=== PATIENT | male | born 2005 | race Two or more races ===

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

== ENCOUNTER 2024-04-20 16:45 | Emergency (ER) | payer SELFPAY ==
--- NOTE | ~2024-04-20 | XR_ITS ---
EXAMINATION: XR CHEST, 2 VIEWS CLINICAL INFORMATION: Chest pain. COMPARISON: 10/15/2022 TECHNIQUE: PA and lateral views of the chest were obtained. FINDINGS: Lungs are clear. No consolidation, pneumothorax, or pleural effusion. Cardiac and mediastinal contours are normal. Pulmonary vasculature is unremarkable. Trachea is midline. Osseous structures are unremarkable. XR/XR chest 2V IMPRESSION: Normal chest radiographs. Electronically signed by: Himanshu Huber MD 04/20/2024 11:14 PM EDT
--- NOTE | 2024-04-20 16:55 | ECG_ITS ---
Test Reason : chest pain Blood Pressure : / mmHG Vent. Rate : 071 BPM Atrial Rate : 071 BPM P-R Int : 138 ms QRS Dur : 090 ms QT Int : 362 ms P-R-T Axes : 072 079 054 degrees QTc Int : 393 ms Normal sinus rhythm Normal ECG When compared with ECG of 03-JUL-2010 15:08, PREVIOUS ECG IS PRESENT No significant change was found Referred By: Rachel Higgins Electronically Signed By:FREDO ELIZABETH
[2024-04-20 17:18] VITALS: BP 95/67; PULSE 70; RESP 16; TEMP 36.9; O2SAT 98; BMI 18.9
--- NOTE | 2024-04-20 17:19 | ED_ITS ---
HPI - Chest Pain General Chief Complaint: Chest Pain Stated Complaint: chest pain Time Seen by Provider: 04/20/24 22:38 History of Present Illness ED Provider: Angela CESAR narrative: The patient is an ordinarily healthy 18-year-old male who recently started work at [employer]. 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 Three days ago he started having some chest pain when he was lifting but it was not that bad. Since yesterday it has gotten considerably worse and he comes to the emergency room for evaluation of this pain. No pain or swelling in his legs. The pain is worse when he lifts things. Related Data Previous Rx's ?Medication ?Instructions ?Recorded levofloxacin 500 mg tablet 500 mg PO DAILY #9 tabs 11/10/21 naproxen 500 mg tablet (Naprosyn) 500 mg PO BID #10 tabs 11/10/21 Allergies Allergy/AdvReac Type Severity Reaction Status Date / Time No Known Allergies Allergy Verified 04/20/24 17:19 Review of Systems 2 Review of Systems: Yes all other systems are reviewed and are negative [facility] Past Medical History Medical History ADHD Social History Social History Alcohol intake: never Smoked in Last 30 Days: No Use of substances other than those prescribed or required for medical reasons: No Advance Directives: No Advance Directives Information Provided: No Do you have a plan to hurt others: No Plan Physical Exam 2 Vital Signs: Vital Signs: Last Vital Signs Temp 98.8 F 04/20/24 23:28 Pulse 54 04/20/24 23:28 Resp 16 04/20/24 23:28 BP 113/71 04/20/24 23:28 Pulse Ox 98 04/20/24 23:28 O2 Del Method Room Air 04/20/24 23:28 BMI result Body Mass Index 18.9 Const: Other: The patient is a slim 18-year-old male who does not appear uncomfortable or ill. Orientation/consciousness: patient oriented x3 HEENT: Head: Yes normal to inspection Face and sinus: Yes normal facial exam Mouth: Normal oral and palatal mucosa present and moist mucous membranes Eyes: General: appearance normal, both eyes and all related structures Neck: Neck: Yes full ROM Chest: Other: Mild anterior chest wall tenderness bilaterally. Resp: Effort & Inspection: normal respiratory effort Auscultation: clear to auscultation bilaterally Cardio: Rate: regular rate Rhythm: regular rhythm Heart sounds: S1 normal heart sound present and S2 normal heart sound present GI: Other: Abdomen is soft and nontender Skin: Other: skin is dry and unremarkable Neuro: General: patient oriented x3 Cranial nerves: Yes CN's II-XII intact bilaterally Cognition (Neuro): normal cognition Gait exam (Neuro): Normal gait present Motor exam (neuro): 5/5 motor strength present throughout Extrem: General: Yes full ROM, Yes no pedal edema and Yes no calf tenderness Course Course Course Narrative: This is a Rapid Medical Examination (RME) performed by Riane Higgins PA-C in triage. Full HPI, ROS, assessment and treatment plan per primary provider in the Main ED. 18 yo male presents to the ER for evaluation of left sided chest pain that has been worsening since Wednesday. Works at [employer] and does a lot of lifting which makes it worse. Also worse with deep breathing. Plan: EKG, CXR, labs Medical Decision Making Medical Decision Making MDM Narrative: the patient is an ordinarily healthy 18-year-old who is complaining of chest pain that he experiences primarily when lifting heavy objects at work. He does not appear obviously ill. His EKG is unremarkable. Chest x-ray is clear. No pneumothorax. Labs were ordered at triage and these are unremarkable. I suspect that his pain is chest wall pain. He was given a work note. He should follow-up with his access representative. Lab Data 04/20/24 18:09 04/20/24 18:09 Labs: Lab Results 04/20/24 04/20/24 Range/Units 18:09 23:17 WBC 7.1 (4.8-10.8) X10*3/uL RBC 4.50 L (4.60-5.80) X10*6/uL Hgb 14.4 (14.0-18.0) g/dl Hct 41.5 L (42.0-52.0) % MCV 92.2 (80.0-98.0) fL MCH 32.0 (27.0-33.0) pg MCHC 34.7 (31.0-36.0) g/dl RDW 11.9 (11.0-16.0) % Plt Count 201 (160-400) X10*3/uL MPV 10.5 (9.4-12.4) fL Immature Gran % (Auto) 0.3 (0.0-0.4) % Neut % (Auto) 75.0 H (45-73) % Lymph % (Auto) 15.7 L (20-40) % [place] % (Auto) 7.6 (2-11) % Eos % (Auto) 0.8 (0-4) % Baso % (Auto) 0.6 (0-2) % Lymph # (Auto) 1.1 L (1.2-4.9) X10*3/uL [place] # (Auto) 0.5 (0.1-1.2) X10*3/uL Eos # (Auto) 0.1 (0.0-0.4) X10*3/uL Baso # (Auto) 0.0 (0.0-0.2) X10*3/uL Abs Immat Gran (auto) 0.02 (0.00-0.03) X10*3/uL Absolute Neuts (auto) 5.3 (2.0-8.3) x10*3/uL Absolute Nucleated RBC 0.000 (0.0-0.012) X10*3/uL Nucleated RBC % (auto) 0.0 (0.0-0.2) /100WBC Sodium 142 (135-145) mmol/L Potassium 4.1 (3.3-5.1) mmol/L Chloride 108 (96-108) mmol/L Carbon Dioxide 26 (22-29) mmol/L Anion Gap 12 (12-20) BUN 10 (9-16) mg/dL Creatinine 0.70 (0.5-1.4) mg/dL Estim Creat Clear Calc 119.7 Estimated GFR > 60 Random Glucose 85 (60-115) mg/dL Calcium 9.5 (8.4-10.2) mg/dL Magnesium 2.2 (1.6-2.6) mg/dL Total Bilirubin 0.5 (0.0-1.0) mg/dL Direct Bilirubin 0.2 (0.0-0.5) mg/dL AST 18 (5-37) U/L ALT 27 (0-40) U/L Alkaline Phosphatase 74 (39-117) U/L Troponin I High Sens < 2.7 (<3.5-35.0) ng/L Total Protein 7.1 (6.5-8.0) g/dL Albumin 4.4 (3.5-5.0) g/dL Influenza Type A (PCR) NEGATIVE (Negative) Influenza Type B (PCR) NEGATIVE (Negative) RSV RNA Qual (PCR) NEGATIVE (Negative) SARS-CoV-2 RNA (RT-PCR) NEGATIVE (Negative) Independent Interpretation I performed an independent interpretation of an: EKG Interpretation: EKG at 1647 shows normal sinus rhythm at 71 beats per minute. This is a normal EKG. Discharge Plan Discharge Clinical Impression: Chest wall pain Patient Disposition: Home, Self-Care Instructions: Chest Wall Pain (ED) Additional Instructions: Your testing today is quite reassuring. Your EKG is normal. Your blood testing is unremarkable. I think your chest x-ray is normal although I do not have the official reading yet. I will contact you if there is any change in the official reading. Please rest for the next several days. My hope is you will be feeling better by next Wednesday. I think you can probably still follow up with [facility] since you are only 18. Continue your efforts to get [facility]. Return to the emergency room if you feel worse. Prescriptions: No Action naproxen [Naprosyn] 500 mg tablet 500 mg PO BID Qty: 10 0RF levofloxacin 500 mg tablet 500 mg PO DAILY Qty: 9 0RF Referrals: Abad Varela MD [Primary Care Provider] - (chest wall pain) Stand Alone Forms: Work/School Release Interventions: ED Discharge Assessment Last Done: 04/20/24 23:28 Discharge Date/Time: 04/20/24 23:29 Print Language: Citizen Of [place]
[2024-04-20 18:29] LABS: MANUAL DIFF FLAG NO
[2024-04-20 18:42] LABS: Basophils Percent Auto 0.6 % (0-2); Eosinophils Absolute Auto 0.1 X10*3/uL (0.0-0.4); Eosinophils Percent Auto 0.8 % (0-4); Hematocrit 41.5 % (42.0-52.0); Hemoglobin 14.4 g/dl (14.0-18.0); Imm Gran Abs Auto 0.02 X10*3/uL (0.00-0.03); Imm Gran Pct Auto 0.3 % (0.0-0.4); Lymphocytes Absolute Auto 1.1 X10*3/uL (1.2-4.9); Lymphocytes Percent Auto 15.7 % (20-40); Mean Corpuscular HGB Conc 34.7 g/dl (31.0-36.0); Mean Corpuscular Volume 92.2 fL (80.0-98.0); Mean Platelet Volume 10.5 fL (9.4-12.4); Monocytes Absolute Auto 0.5 X10*3/uL (0.1-1.2); Monocytes Percent Auto 7.6 % (2-11); Neutrophils Absolute Auto 5.3 x10*3/uL (2.0-8.3); Platelet Count 201 X10*3/uL (160-400); Red Cell Distribution Width 11.9 % (11.0-16.0); White Blood Count 7.1 X10*3/uL (4.8-10.8)
[2024-04-20 18:46] LABS: Alanine Aminotransferase 27 U/L (0-40); Albumin Level 4.4 g/dL (3.5-5.0); Alkaline Phosphatase 74 U/L (39-117); Anion Gap 12 (12-20); Aspartate Amino Transferase 18 U/L (5-37); Bilirubin Direct 0.2 mg/dL (0.0-0.5); Bilirubin Total 0.5 mg/dL (0.0-1.0); Blood Urea Nitrogen 10 mg/dL (9-16); Calcium 9.5 mg/dL (8.4-10.2); Carbon Dioxide 26 mmol/L (22-29); Chloride 108 mmol/L (96-108); Creatinine Clr Calc Pharmacy 119.7; Estimated Glomerular Filt Rate > 60; Glucose Random 85 mg/dL (60-115); Magnesium 2.2 mg/dL (1.6-2.6); Potassium 4.1 mmol/L (3.3-5.1); Sodium 142 mmol/L (135-145); Total Protein 7.1 g/dL (6.5-8.0)
[2024-04-20 18:54] LABS: Troponin-I High Sensitivity < 2.7 ng/L (<3.5-35.0)
[2024-04-20 22:07] VITALS: BP 113/71; PULSE 54; RESP 16; TEMP 37.1; O2SAT 98
[2024-04-20 23:28] VITALS: BP 113/71; PULSE 54; RESP 16; TEMP 37.1; O2SAT 98
[2024-04-20 23:58] LABS: Influenza A PCR NEGATIVE (Negative); Influenza B PCR NEGATIVE (Negative); Resp Syncy Virus RNA Qual PCR NEGATIVE (Negative); SARS COV2 PCR INHOUSE NEGATIVE (Negative)
== END 2024-04-20 23:29 | disposition home or self-care (01) ==
PROVIDERS: Physician Assistant; Emergency Provider Emergency Medicine; PCP Pediatrics
DX: R07.89 Other chest pain (principal); Z03.818 Encounter for observation for suspected exposure to other biological agents ruled out
CPT/HCPCS: 0241U; 36415; 71046; 80048; 80076; 83735; 84484; 85025; 93005; 99283; 99284

== ENCOUNTER 2024-05-11 08:54 | Emergency (ER) | payer SELFPAY ==
[2024-05-11 09:00] VITALS: BP 128/77; PULSE 62; RESP 18; TEMP 36.3; O2SAT 98; BMI 18.7
--- NOTE | 2024-05-11 09:52 | ED.BACK ---
HPI - Back Pain/Injury General Chief Complaint: Back Pain/Injury Stated Complaint: Back pain Time Seen by Provider: 05/11/24 09:19 Source: patient and RN notes reviewed Mode of arrival: ambulatory Limitations: no limitations History of Present Illness ED Provider: Stefanie Magana PA-C HPI Narrative: This is a 18-year-old male, with no known medical problems, who presents emergency department with complaints of back pain x4 days. Patient states that he works at [employer] which requires him to lift heavy objects frequently. He denies specifically lifting up a heavy box and immediately feeling pain however states that over the last several days he has noticed increased pain to his back. He states that the pain worsens with movement. He has been taking Tylenol as well as using lidocaine patches which has provided him with some relief. He denies any fevers, chills, chest pain, shortness of breath, abdominal pain, nausea, vomiting or diarrhea. No urinary or bowel retention or incontinence. No saddle anesthesia. No numbness and tingling. He is ambulatory with steady gait. No history of IVDA. No other complaints or concerns at this time MD elicited complaint: back pain Onset (ago): day(s) Timing: constant Severity: moderate Similar Symptoms Previously: No Quality: aching Location: thoracic spine Radiation: none Exacerbating factors: none Relieving factors: none Associated symptoms: denies other symptoms Work related injury: Yes Related Data Previous Rx's ?Medication ?Instructions ?Recorded levofloxacin 500 mg tablet 500 mg PO DAILY #9 tabs 11/10/21 naproxen 500 mg tablet (Naprosyn) 500 mg PO BID #10 tabs 11/10/21 ibuprofen 600 mg tablet 600 mg PO Q6H PRN pain #30 tabs 05/11/24 lidocaine 4 % topical patch 1 patch topical DAILY PRN pain #30 05/11/24 (AsperFlex (lidocaine)) ea methocarbamol 750 mg tablet 750 mg PO Q8H PRN muscle spasm 3 05/11/24 days #9 tabs Allergies Allergy/AdvReac Type Severity Reaction Status Date / Time No Known Allergies Allergy Verified 05/11/24 09:03 Review of Systems Review of Systems: Yes all other systems are reviewed and are negative Constitutional: Constitutional: Reports as per [facility] Past Medical History Attestation statement: The following information was validated with the patient. Medical History ADHD Social History Social History Alcohol intake: never Advance Directives: No Advance Directives Information Provided: Yes Physical Exam Vital Signs: Vital Signs: Last Vital Signs Temp 97.3 F 05/11/24 09:00 Pulse 62 05/11/24 09:00 Resp 18 05/11/24 09:00 BP 128/77 05/11/24 09:00 Pulse Ox 98 05/11/24 09:00 O2 Del Method Room Air 05/11/24 09:00 BMI result Body Mass Index 18.7 Const: General: cooperative, comfortable and no acute distress Orientation/consciousness: patient oriented x3 Limitations: no limitations HEENT: Head: Yes normal to inspection, Yes normocephalic and Yes atraumatic Ears: hearing grossly normal bilaterally General nose exam: Normal external nose present Face and sinus: Yes normal facial exam Mouth: Normal oral and palatal mucosa present, oropharynx normal and moist mucous membranes Throat: Yes posterior oropharynx normal Eyes: General: appearance normal, both eyes and all related structures Eyelids: Yes eyelids normal Conjunctivae: conjunctivae normal Sclerae: sclerae normal Pupils: Equal, round and reactive pupils present EOM: EOMs intact bilaterally Neck: Neck: Yes normal visual inspection, Yes full ROM and Yes no lymphadenopathy Lymphatic: no lymphadenopathy noted Chest: Chest palpation & inspection: normal inspection of the chest Resp: Effort & Inspection: normal respiratory effort and able to speak in complete sentences Auscultation: clear to auscultation bilaterally, no crackles, no rales, no rhonchi and no wheezes Cardio: Rate: regular rate Rhythm: regular rhythm Heart sounds: S1 normal heart sound present and S2 normal heart sound present GI: Inspection: Yes normal to inspection Back/Spine/Pelvis: Other: No C-spine, T-spine, or L-spine midline spine tenderness on examination. He has tenderness to palpation along the left thoracic musculature with palpable muscle spasm noted with exquisite tenderness on examination. No overlying skin changes, warmth. No abscess. Skin: General skin exam: no rashes or lesions noted Trauma: no lacerations or abrasions Wounds: no wounds Neuro: General: patient oriented x3 and moves all extremities Cranial nerves: Yes Equal, round and reactive pupils present Extrem: General: Yes normal to inspection Right upper extremity: normal to inspection Left upper extremity: normal to inspection Right lower extremity: normal to inspection Left lower extremity: normal to inspection Medical Decision Making Medical Decision Making MDM Narrative: This is a 18-year-old male who presents emergency department with complaints of back pain x4 days. He often has to lift heavy objects at work. He states that over the last several days he has had worsening pain to his left upper back. On examination, vital signs within normal limits. He is ambulatory with steady gait. Distal sensation circulation intact. He has tenderness palpation along the thoracic left musculature with palpable spasm noted. He has no history of IVDA. No red flag back symptoms. Urinary symptoms to suggest pyelonephritis or obstructive uropathy. No concerning signs for cauda equina syndrome Discussed that x-rays would not benefit him, and will treat conservatively with muscle relaxants, ibuprofen and lidocaine patches. 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 He understands and agrees with plan. Patient stable for discharge. Differential Diagnosis Differential Diagnoses: The differential diagnosis associated with the presentation includes Spasm, strain, sprain, contusion, see above Discharge Plan Discharge Clinical Impression: Spasm of thoracic back muscle Patient Disposition: Home, Self-Care Instructions: Muscle Spasm (ED), Back Pain (ED), Heat Pack Application (ED) Additional Instructions: You were seen in the emergency department due to back pain. You have a large muscle spasm in your left upper back. Please rest, apply heat or ice, take ibuprofen, and muscle relaxants as needed. Gentle stretching, and massage can also help with your symptoms. If any new or worsening symptoms occur including but not limited to worsening pain, chest pain, shortness of breath, please return for re-evaluation Follow-up with a primary care physician, I am giving your referral to [facility] Prescriptions: New ibuprofen 600 mg tablet 600 mg PO Q6H PRN (Reason: pain) Qty: 30 0RF methocarbamol 750 mg tablet 750 mg PO Q8H PRN (Reason: muscle spasm) 3 Days Qty: 9 0RF lidocaine [AsperFlex (lidocaine)] 4 % adhesive patch,medicated 1 patch topical DAILY PRN (Reason: pain) Qty: 30 0RF No Action naproxen [Naprosyn] 500 mg tablet 500 mg PO BID Qty: 10 0RF levofloxacin 500 mg tablet 500 mg PO DAILY Qty: 9 0RF Referrals: [facility] [Physician] - Stand Alone Forms: Work/School Release Print Language: Salvadorean
[2024-05-11 10:10] VITALS: BP 128/77; PULSE 62; RESP 18; TEMP 36.3; O2SAT 98
== END 2024-05-11 10:11 | disposition home or self-care (01) ==
PROVIDERS: Emergency Provider Student in an Organized Health Care Education/Training Program
DX: M62.830 Muscle spasm of back (principal)
CPT/HCPCS: 99283

== ENCOUNTER 2024-07-29 10:27 | Emergency (ER) | payer OTHER, SELFPAY ==
[2024-07-29 10:34] VITALS: BP 107/55; PULSE 54; RESP 20; TEMP 37; O2SAT 100; BMI 18.4
[2024-07-29 11:44] LABS: Influenza A PCR NEGATIVE (Negative); Influenza B PCR NEGATIVE (Negative); Resp Syncy Virus RNA Qual PCR NEGATIVE (Negative); SARS COV2 PCR INHOUSE NEGATIVE (Negative)
--- NOTE | 2024-07-29 12:17 | ED_ITS ---
HPI - Headache General Chief Complaint: Headache Stated Complaint: migraine Time Seen by Provider: 07/29/24 11:41 Source: patient Mode of arrival: ambulatory Limitations: no limitations History of Present Illness ED Provider: MARIELOS MCDUFFIE PA-C HPI Narrative: 19-year-old male with pmhx significant for ADHD presents to the ED today for evaluation of headache x 24 hours. He said his headache gradually came on while he was at work yesterday. He reports working in an [employer] where it there is a lot of noise/come motion. 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 He reports taking Tylenol last night with improvement in headache however it returned this morning. He did not take any [id number] medications today, rather decided to come to the ED for further evaluation. He denies any vision changes, nausea, vomiting, photophobia, dizziness, neck pain. No history of migraines. No known trauma/injury to the head. Related Data Previous Rx's ?Medication ?Instructions ?Recorded levofloxacin 500 mg tablet 500 mg PO DAILY #9 tabs 11/10/21 naproxen 500 mg tablet (Naprosyn) 500 mg PO BID #10 tabs 11/10/21 ibuprofen 600 mg tablet 600 mg PO Q6H PRN pain #30 tabs 05/11/24 lidocaine 4 % topical patch 1 patch topical DAILY PRN pain #30 05/11/24 (AsperFlex (lidocaine)) ea methocarbamol 750 mg tablet 750 mg PO Q8H PRN muscle spasm 3 05/11/24 days #9 tabs Allergies Allergy/AdvReac Type Severity Reaction Status Date / Time No Known Allergies Allergy Verified 07/29/24 10:35 Review of Systems 2 Review of Systems: Constitutional: No fever, chills, fatigue, night sweats, weight changes ENT/Mouth: No ear pain, hearing loss, nasal congestion, sinus pain, rhinorrhea, sore throat Eyes: No eye pain, swelling, redness, vision changes, discharge Cardio: No chest pain, palpitations, MORALES, orthopnea, peripheral edema Pulm: No SOB, cough, sputum, wheezing, dyspnea, hemoptysis GI: No nausea, vomiting, hematemesis, abdominal pain, diarrhea, constipation, hematochezia, melena : No irregular bleeding, dysuria, frequency, urgency, hesitancy, hematuria, flank pain, urinary flow changes, urinary incontinence or retention MSK: No back pain, neck pain, joint pain, myalgias Skin: No lesions, rashes Neuro: No weakness, numbness, paresthesias, LOC, dizziness, +headache Psych: No anxiety/panic, depression, SI/HI, AH/VH All other systems reviewed and are negative. [facility] Past Medical History Attestation statement: The following information was validated with the patient. Source: old records reviewed and nursing notes reviewed Medical History ADHD Social History Social History Alcohol intake: never Advance Directives: No Advance Directives Information Provided: No Physical Exam 2 Vital Signs: Vital Signs: Last Vital Signs Temp 98.0 F 07/29/24 12:38 Pulse 52 07/29/24 12:38 Resp 15 07/29/24 12:38 BP 112/47 L 07/29/24 12:38 Pulse Ox 99 07/29/24 12:38 O2 Del Method Room Air 07/29/24 12:38 BMI result Body Mass Index 18.4 Vital signs stable Const: General: cooperative, healthy appearing, comfortable and no acute distress Orientation/consciousness: patient oriented x3 Limitations: no limitations HEENT: Head: Yes normal to inspection, Yes No palpable skull fracture present, Yes normocephalic, Yes atraumatic, No scalp tenderness and No Temporal artery tenderness present Ears: hearing grossly normal bilaterally, external ears normal, TM's normal bilaterally, EAC's normal, mastoids normal and no periauricular adenopathy Face and sinus: Yes normal facial exam and Yes sinuses nontender Mouth: Normal oral and palatal mucosa present and moist mucous membranes Eyes: General: appearance normal, both eyes and all related structures C onjunctivae: conjunctivae normal Sclerae: sclerae normal Pupils: Equal, round and reactive pupils present Direct Ophthalmoscopy: normal light reflex, no photophobia, no papilledema and fundi normal bilaterally Neck: Neck: Yes normal visual inspection, Yes full ROM, Yes no lymphadenopathy and Yes no meningeal signs Resp: Effort & Inspection: normal respiratory effort and able to speak in complete sentences Auscultation: clear to auscultation bilaterally Cardio: Rate: regular rate Rhythm: regular rhythm Back/Spine/Pelvis: Other: No midline spinous tenderness or step off deformity. No paraspinal muscle tenderness. Skin: General skin exam: no rashes or lesions noted Neuro: General: patient oriented x3, gait normal, tone normal, no meningeal signs and no focal motor deficits Cranial nerves: Yes Equal, round and reactive pupils present Gait exam (Neuro): Normal gait present Motor exam (neuro): 5/5 motor strength present throughout and Pronator motor function not present Coordination: [id number] test normal, [id number]-[id number] test normal, Romberg test negative and Normal rapid alternating movements of the distal upper extremity present (Neuro) Romberg Test: Negative Pupils: Normal pupillary reactivity/response: bilateral Course Course Course Narrative: Patient tested negative for COVID, flu, RSV. CBC does not demonstrate leukocytosis or left shift. No anemia. H&H stable. Chemistry without acute electrolyte abnormality requiring intervention. No ANG. Liver function at baseline. > patient treated with Motrin with improvement in headache. I do not feel CT head is warranted at this time. Patient has remained stable throughout ED visit today. Discussed worrisome signs and symptoms and when to return to the ED. All questions answered at this time. Patient is agreeable with disposition and stable for discharge. Medications Administered Discontinued Medications Generic Name Dose Route Start Last Admin Trade Name Michaelq PRN Reason Stop Dose Admin Ibuprofen 600 mg 07/29/24 12:21 07/29/24 12:45 Ibuprofen 600 Mg Tablet PO 07/29/24 12:22 600 mg ONCE ONE Administration Medical Decision Making Medical Decision Making [facility] Narrative: 19-year-old male with pmhx significant for ADHD presents to the ED today for evaluation of headache x 24 hours. Vital signs are stable. Afebrile. He is nontoxic-appearing and in no acute distress. No headache red flags. Exam is nonfocal. No meningeal signs or nuchal rigidity. ambulating with steady gait. Differential diagnosis includes general headache vs migraine vs tension type headache. No headache red flags. Neurologic exam without evidence of meningismus. No focal neurologic findings. Presentation not consistent with acute intracranial bleed including SAH (lack of risk factors, headache history). Presentation not consistent with acute [employer] infection including meningitis or brain abscess. Temporal arteritis unlikely, as is acute angle closure glaucoma given history and physical findings. Presentation not consistent with other acute, emergent causes of headache at this time. Plan to treat symptomatically with pain medication. No indication for imaging/LP at this time. Plan for pain control, labs, viral swabs, and re-evaluation. Differential Diagnosis Differential Diagnoses: The differential diagnosis associated with the presentation includes As above Admission/Observation Not indicated Lab Data MDM Lab Attestation statement: I reviewed the patient's lab results. As above 07/29/24 12:10 07/29/24 12:10 Labs: Lab Results 07/29/24 07/29/24 Range/Units 11:03 12:10 WBC 4.7 L (4.8-10.8) X10*3/uL RBC 4.66 (4.60-5.80) X10*6/uL Hgb 14.8 (14.0-18.0) g/dl Hct 41.9 L (42.0-52.0) % MCV 89.9 (80.0-98.0) fL MCH 31.8 (27.0-33.0) pg MCHC 35.3 (31.0-36.0) g/dl RDW 11.7 (11.0-16.0) % Plt Count 191 (160-400) X10*3/uL MPV 10.6 (9.4-12.4) fL Immature Gran % (Auto) 0.2 (0.0-0.4) % Neut % (Auto) 61.5 (45-73) % Lymph % (Auto) 27.4 (20-40) % Cooper % (Auto) 7.6 (2-11) % Eos % (Auto) 2.5 (0-4) % Baso % (Auto) 0.8 (0-2) % Lymph # (Auto) 1.3 (1.2-4.9) X10*3/uL Cooper # (Auto) 0.4 (0.1-1.2) X10*3/uL Eos # (Auto) 0.1 (0.0-0.4) X10*3/uL Baso # (Auto) 0.0 (0.0-0.2) X10*3/uL Abs Immat Gran (auto) 0.01 (0.00-0.03) X10*3/uL Absolute Neuts (auto) 2.9 (2.0-8.3) x10*3/uL Absolute Nucleated RBC 0.000 (0.0-0.012) X10*3/uL Nucleated RBC % (auto) 0.0 (0.0-0.2) /100WBC Sodium 141 (135-145) mmol/L Potassium 4.3 (3.3-5.1) mmol/L Chloride 108 (96-108) mmol/L Carbon Dioxide 25 (22-29) mmol/L Anion Gap 12 (12-20) BUN 9 (9-16) mg/dL Creatinine 0.78 (0.5-1.4) mg/dL Estim Creat Clear Calc 103.8 Estimated GFR > 60 Random Glucose 82 (60-115) mg/dL Calcium 8.9 D (8.4-10.2) mg/dL Magnesium 2.2 (1.6-2.6) mg/dL Total Bilirubin 1.1 H (0.0-1.0) mg/dL AST 21 (5-37) U/L ALT 18 (0-40) U/L Alkaline Phosphatase 57 (39-117) U/L Total Protein 7.3 (6.5-8.0) g/dL Albumin 4.5 (3.5-5.0) g/dL Influenza Type A (PCR) NEGATIVE (Negative) Influenza Type B (PCR) NEGATIVE (Negative) RSV RNA Qual (PCR) NEGATIVE (Negative) SARS-CoV-2 RNA (RT-PCR) NEGATIVE (Negative) External Record Review External record reviewed: Inpatient record, Office record, Outpatient record, Prior outpatient labs, Prior outpatient radiology, Primary care record and Outside ED record Tests considered The following testing was considered but not selected: I considered ordering CT head/brain however exam is nonfocal and benign. No trauma or injury. Not warranted at this time. Prescription Management I considered prescription management with: Pain Medication (Tylenol, Motrin) Social Determinants Patient?s care significantly limited by Social Determinants of Health including: Other Social Determinant of Health Critical Care Time Critical Care Time Critical Care Time: No Discharge Plan Discharge Clinical Impression: Headache Patient Disposition: Home, Self-Care Instructions: General Headache (ED) Additional Instructions: Your blood work today is reassuring. You tested negative for covid, flu, rsv. You were treated with motrin for your headache. I recommend you take 600mg ibuprofen every 6 hours or Tylenol 650mg every 6 hours as needed for pain. If needed, you can alternate these medications so that you take one medication every 3 hours. For example, at noon take ibuprofen, then at 3pm take Tylenol, then at 6pm take ibuprofen. Follow up with PCP this week. Return with new or worsening symptoms. In the case of an emergency call 911. Prescriptions: No Action naproxen [Naprosyn] 500 mg tablet 500 mg PO BID Qty: 10 0RF levofloxacin 500 mg tablet 500 mg PO DAILY Qty: 9 0RF ibuprofen 600 mg tablet 600 mg PO Q6H PRN (Reason: pain) Qty: 30 0RF methocarbamol 750 mg tablet 750 mg PO Q8H PRN (Reason: muscle spasm) 3 Days Qty: 9 0RF lidocaine [AsperFlex (lidocaine)] 4 % adhesive patch,medicated 1 patch topical DAILY PRN (Reason: pain) Qty: 30 0RF Stand Alone Forms: Work/School Release Print Language: Arabic
[2024-07-29 12:32] LABS: MANUAL DIFF FLAG NO
[2024-07-29 12:38] VITALS: BP 112/47; PULSE 52; RESP 15; TEMP 36.7; O2SAT 99
[2024-07-29 12:38] LABS: Basophils Percent Auto 0.8 % (0-2); Eosinophils Absolute Auto 0.1 X10*3/uL (0.0-0.4); Eosinophils Percent Auto 2.5 % (0-4); Hematocrit 41.9 % (42.0-52.0); Hemoglobin 14.8 g/dl (14.0-18.0); Imm Gran Abs Auto 0.01 X10*3/uL (0.00-0.03); Imm Gran Pct Auto 0.2 % (0.0-0.4); Lymphocytes Absolute Auto 1.3 X10*3/uL (1.2-4.9); Lymphocytes Percent Auto 27.4 % (20-40); Mean Corpuscular HGB Conc 35.3 g/dl (31.0-36.0); Mean Corpuscular Hemoglobin 31.8 pg (27.0-33.0); Mean Corpuscular Volume 89.9 fL (80.0-98.0); Mean Platelet Volume 10.6 fL (9.4-12.4); Monocytes Absolute Auto 0.4 X10*3/uL (0.1-1.2); Monocytes Percent Auto 7.6 % (2-11); Neutrophils Absolute Auto 2.9 x10*3/uL (2.0-8.3); Neutrophils Percent Auto 61.5 % (45-73); Platelet Count 191 X10*3/uL (160-400); Red Blood Count 4.66 X10*6/uL (4.60-5.80); Red Cell Distribution Width 11.7 % (11.0-16.0); White Blood Count 4.7 X10*3/uL (4.8-10.8)
[2024-07-29] MEDS: Ibuprofen 600 MG TABLET PO (12:45)
--- NOTE | 2024-07-29 12:45 | PC.NURSE ---
pt medicated for 4/10 headache, pt stated last took tylenol yesterday, has not attempted any other otc medications
[2024-07-29 13:00] LABS: Alanine Aminotransferase 18 U/L (0-40); Albumin Level 4.5 g/dL (3.5-5.0); Alkaline Phosphatase 57 U/L (39-117); Anion Gap 12 (12-20); Aspartate Amino Transferase 21 U/L (5-37); Bilirubin Total 1.1 mg/dL (0.0-1.0); Blood Urea Nitrogen 9 mg/dL (9-16); Calcium 8.9 mg/dL (8.4-10.2); Carbon Dioxide 25 mmol/L (22-29); Chloride 108 mmol/L (96-108); Creatinine Clr Calc Pharmacy 103.8; Estimated Glomerular Filt Rate > 60; Glucose Random 82 mg/dL (60-115); Magnesium 2.2 mg/dL (1.6-2.6); Potassium 4.3 mmol/L (3.3-5.1); Sodium 141 mmol/L (135-145); Total Protein 7.3 g/dL (6.5-8.0)
[2024-07-29 13:19] VITALS: BP 110/52; PULSE 54; RESP 16; TEMP 36.7; O2SAT 99
== END 2024-07-29 13:21 | disposition home or self-care (01) ==
PROVIDERS: Physician Assistant Medical; Emergency Provider Emergency Medicine
DX: R51.9 Headache, unspecified (principal); Z03.818 Encounter for observation for suspected exposure to other biological agents ruled out
CPT/HCPCS: 0241U; 36415; 80053; 83735; 85025; 99283

== ENCOUNTER 2024-08-10 09:51 | Emergency (ER) | payer OTHER, SELFPAY ==
[2024-08-10 10:27] VITALS: BP 118/75; PULSE 58; RESP 16; TEMP 37; O2SAT 98; BMI 18.5
--- NOTE | 2024-08-10 13:06 | ED.GENADULT ---
HPI - General Adult General Chief complaint: Skin/Abscess/Foreign Body Stated complaint: pw l foot step on nail Time Seen by Provider: 08/10/24 12:10 Source: patient and RN notes reviewed Mode of arrival: ambulatory Limitations: no limitations History of Present Illness ED Provider: Stefanie Magana PA-C HPI narrative: This is a 19-year-old male, with no known medical problems, who presents emergency department with complaints of puncture wound to right foot. Patient states that while he was wearing his socks inside, he felt he stepped on a sharp staple or nail. He states that pain worsens with ambulation. He states that he just wants and evaluation of the wound to make sure that it is not infected. He is unsure when his last tetanus shot was. Denies any fevers or chills. No other complaints or concerns at this time. MD complaint: Wound Onset (ago): day(s) Location: lower extremity Radiation: extremity Severity: moderate Quality: aching Pain Consistency: constant Relieving factors: none Exacerbating factors: none Associated symptoms: denies other symptoms Treatments prior to arrival: none Related Data Previous Rx's ?Medication ?Instructions ?Recorded levofloxacin 500 mg tablet 500 mg PO DAILY #9 tabs 11/10/21 naproxen 500 mg tablet (Naprosyn) 500 mg PO BID #10 tabs 11/10/21 ibuprofen 600 mg tablet 600 mg PO Q6H PRN pain #30 tabs 05/11/24 lidocaine 4 % topical patch 1 patch topical DAILY PRN pain #30 05/11/24 (AsperFlex (lidocaine)) ea methocarbamol 750 mg tablet 750 mg PO Q8H PRN muscle spasm 3 05/11/24 days #9 tabs cephalexin 500 mg capsule 500 mg PO QID 5 days #20 caps 08/10/24 Allergies Allergy/AdvReac Type Severity Reaction Status Date / Time No Known Allergies Allergy Verified 08/10/24 10:31 Review of Systems Review of Systems: Yes all other systems are reviewed and are negative Constitutional: Constitutional: Reports as per [facility] Past Medical History Medical History ADHD Social History Social History Alcohol intake: never Advance Directives: No Physical Exam ED Vital Signs: Vital Signs - 24 hr 08/10/24 10:27 Temperature 98.6 F Pulse Rate 58 Respiratory Rate 16 Blood Pressure 118/75 Pulse Oximetry 98 Oxygen Delivery Method Room Air BMI result Body Mass Index 18.5 Const General: cooperative, comfortable and no acute distress Orientation/consciousness: patient oriented x3 Limitations: no limitations HENMT Head: Yes normal to inspection, Yes normocephalic and Yes atraumatic Ears: hearing grossly normal bilaterally General nose exam: Normal external nose present Face and sinus: Yes normal facial exam Mouth: Normal oral and palatal mucosa present, oropharynx normal and moist mucous membranes Throat: Yes posterior oropharynx normal Eyes General: appearance normal, both eyes and all related structures Eyelids: Yes eyelids normal Conjunctivae: conjunctivae normal Sclerae: sclerae normal Pupils: Equal, round and reactive pupils present EOM: EOMs intact bilaterally Neck Neck: Yes normal visual inspection, Yes full ROM and Yes no lymphadenopathy Lymphatic: no lymphadenopathy noted Chest Chest palpation & inspection: normal inspection of the chest Resp Effort & Inspection: normal respiratory effort and able to speak in complete sentences Auscultation: clear to auscultation bilaterally, no crackles, no rales, no rhonchi and no wheezes Cardio Rate: regular rate Rhythm: regular rhythm Heart sounds: S1 normal heart sound present and S2 normal heart sound present GI Inspection: Yes normal to inspection Skin Other: Right foot, plantar aspect just at the PIP of the 4th toe, there is a 2 mm superficial linear abrasion, with no surrounding erythema or warmth. Tender to palpation. No obvious foreign body noted. Strong DP pulse. General skin exam: no rashes or lesions noted Trauma: no lacerations or abrasions Wounds: no wounds Neuro General: patient oriented x3 and moves all extremities Cranial nerves: Yes Equal, round and reactive pupils present Extrem General: Yes normal to inspection Right upper extremity: normal to inspection Left upper extremity: normal to inspection Right lower extremity: normal to inspection Left lower extremity: normal to inspection Medical Decision Making Medical Decision Making MDM Narrative: This is a 19-year-old male who presents emergency department with complaints of wound to right foot. He states that he stepped on a sharp object yesterday while wearing socks. I discussed with patient that he should get a tetanus shot as he is unsure when his last 1 was, he declined. I discussed with him the risk of developing tetanus, and how this can cause life-threatening illness including however he understands the risks and consequences of not receiving this tetanus, and refuses to get the tetanus. Also discussed with patient that he should get an x-ray given pain, and superficial abrasion noted to his toe however he also declines this. Wants to be discharged. Will treat with course of Keflex, given strict return precautions. He signed AMA paperwork. Differential Diagnosis Differential Diagnoses: The differential diagnosis associated with the presentation includes Cellulitis, puncture wound, fracture Discharge Plan Discharge Clinical Impression: Puncture wound Patient Disposition: Left Against Medical Advice Instructions: Puncture Wound (ED) Additional Instructions: You were seen in the emergency department after stepping on a sharp object. You have a slight wound on your toe. Please keep wound clean and dry. Watch for any signs of infection including but not limited to increased redness, or pain. Take prescribed antibiotic as directed, finish the entire course even if your symptoms improve. You had refused your tdap injection. This is a very important injection as it prevents a deadly disease called tetanus. Given that you stepped on a sharp object that may contain tetanus, you may contract is due to this wound as you are unsure when her last tetanus shot was. You understood that this can cause tetanus, and you still despite knowing these risks, refused the vaccine. We also offered a x-ray of your toe, to ensure that the bone underneath was not impacted by this wound. You refused this as well. At this time, you were signing against medical advice as we had offered the tetanus injection which he refused as well as an x-ray, we are unsure if you have any further injury that would need other treatment for. You were understood the risks and benefits of this and still refused this type of treatment. If any new or worsening symptoms occur including but not limited to high fevers, worsening pain, redness, please seek emergent care. Prescriptions: New cephalexin 500 mg capsule 500 mg PO QID 5 Days Qty: 20 0RF No Action naproxen [Naprosyn] 500 mg tablet 500 mg PO BID Qty: 10 0RF levofloxacin 500 mg tablet 500 mg PO DAILY Qty: 9 0RF ibuprofen 600 mg tablet 600 mg PO Q6H PRN (Reason: pain) Qty: 30 0RF methocarbamol 750 mg tablet 750 mg PO Q8H PRN (Reason: muscle spasm) 3 Days Qty: 9 0RF lidocaine [AsperFlex (lidocaine)] 4 % adhesive patch,medicated 1 patch topical DAILY PRN (Reason: pain) Qty: 30 0RF Stand Alone Forms: Against Medical Advice, Work/School Release Discharge Date/Time: 08/10/24 13:57 Print Language: Luxembourger
--- NOTE | 2024-08-10 16:48 | PC.NURSE ---
PT left AMA, pt aware of risks leaving AMA. This Nurse and provider educated pt and, pt still wishes to leave. PT AMA form signed.
== END 2024-08-10 13:57 | disposition left against medical advice (07) ==
PROVIDERS: Emergency Provider Emergency Medicine
DX: S91.134A Puncture wound without foreign body of right lesser toe(s) without damage to nail, initial encounter (principal); W45.8XXA Other foreign body or object entering through skin, initial encounter; Y93.9 Activity, unspecified; Y92.009 Unspecified place in unspecified non-institutional (private) residence as the place of occurrence of the external cause; Y99.9 Unspecified external cause status
CPT/HCPCS: 99281; 99283

== ENCOUNTER 2024-08-12 07:49 | Emergency (ER) | payer OTHER, SELFPAY ==
[2024-08-12 07:57] VITALS: BP 109/61; PULSE 89; RESP 18; TEMP 36.7; BMI 39.6
[2024-08-12 08:30] LABS: IDNOW Serial# 58CA691E; Strep A Nucleic Acid Negative (Negative)
[2024-08-12 09:01] LABS: Influenza A PCR NEGATIVE (Negative); Influenza B PCR NEGATIVE (Negative); Resp Syncy Virus RNA Qual PCR NEGATIVE (Negative); SARS COV2 PCR INHOUSE POSITIVE (Negative)
--- NOTE | 2024-08-12 09:08 | ED.GENADULT ---
HPI - General Adult General Chief complaint: Upper Respiratory Symptoms Stated complaint: cold symptoms Time Seen by Provider: 08/12/24 09:01 Source: patient Mode of arrival: ambulatory Limitations: no limitations History of Present Illness ED Provider: Rosa Hollis PA-C HPI narrative: Patient is a 19 year old assigned male at with no reported medical history presenting to the emergency department today with a sore throat, cough, and nasal congestion. Patient states that starting on 08/11/2024 he began to have a sore throat, cough, and nasal congestion. Patient denies any dizziness, lightheadedness, abdominal pain, nausea, vomiting, fever, chills, blurry vision, double vision, loss of vision, chest pain, difficulty breathing, shortness of breath, back pain, night sweats, pain with urination, increased urinary frequency, increased urinary urgency, blood in his urine or stool, syncope or a near syncopal episode, recent trauma or falls, bowel incontinence, bladder incontinence, or any other complaints at this time. Onset (ago): day(s) (1) Relieving factors: none Exacerbating factors: none Associated symptoms: cough Treatments prior to arrival: none Related Data Previous Rx's ?Medication ?Instructions ?Recorded levofloxacin 500 mg tablet 500 mg PO DAILY #9 tabs 11/10/21 naproxen 500 mg tablet (Naprosyn) 500 mg PO BID #10 tabs 11/10/21 ibuprofen 600 mg tablet 600 mg PO Q6H PRN pain #30 tabs 05/11/24 lidocaine 4 % topical patch 1 patch topical DAILY PRN pain #30 05/11/24 (AsperFlex (lidocaine)) ea methocarbamol 750 mg tablet 750 mg PO Q8H PRN muscle spasm 3 05/11/24 days #9 tabs cephalexin 500 mg capsule 500 mg PO QID 5 days #20 caps 08/10/24 Allergies Allergy/AdvReac Type Severity Reaction Status Date / Time No Known Allergies Allergy Verified 08/12/24 08:00 Review of Systems Constitutional: Constitutional: Reports no additional constitutional complaints, Denies chills, Denies fever(s) and Denies night sweats Eyes: Eyes: Reports no additional eye complaints, Denies blurry vision, Denies change in vision, Denies diplopia, Denies eye discharge, Denies loss of vision and Denies eye pain ENT: Denies dizziness, Reports nasal congestion and Reports sore throat Cardiovascular: Cardiovascular: Reports no additional cardiovascular complaints, Denies chest pain, Denies lightheadedness, Denies Loss of Consciousness and Denies dyspnea Respiratory: Respiratory: Reports no additional respiratory complaints, Reports cough and Denies dyspnea Gastrointestinal: Gastrointestinal: Reports no additional gastrointestinal complaints, Denies abdominal pain, Denies melena, Denies hematochezia, Denies change in bowel habits and Denies change in stool character Genitourinary: Genitourinary: Reports no additional male genitourinary complaints, Denies hematuria, Denies oliguria, Denies difficulty urinating, Denies dysuria, Denies urinary frequency, Denies urinary hesitancy, Denies urinary incontinence and Denies urinary urgency Musculoskeletal: Musculoskeletal: Reports no additional musculoskeletal complaints, Denies numbness and Denies tingling Neurologic: Denies dizziness, Denies loss of vision, Denies numbness and Denies tingling Psychiatric: Psychiatric: Reports no additional psychiatric complaints Endocrine: Endocrine: Reports no additional endocrine complaints Hematologic/Lymphatic: Hematologic/Lymphatic: Reports no additional hematologic/lymphatic complaints Allergic/Immunologic: Allergic/Immunologic: Reports no additional allergic/immunologic complaints PMFSH Past Medical History Attestation statement: The following information was validated with the patient. Source: old records reviewed and nursing notes reviewed Medical History ADHD Social History Social History Alcohol intake: never Advance Directives: No Advance Directives Information Provided: Yes Physical Exam ED Vital Signs: Vital Signs - 24 hr 08/12/24 07:57 08/12/24 09:32 Temperature 98.1 F 98.1 F Pulse Rate 89 89 Respiratory Rate 18 18 Blood Pressure 109/61 109/61 Pulse Oximetry 98 Oxygen Delivery Method Room Air Room Air BMI result Body Mass Index 39.6 Const General: cooperative, no acute distress, alert and awake Nutritional Appearance: well nourished Orientation/consciousness: patient oriented x3 Limitations: no limitations HENMT Head: Yes normal to inspection and Yes atraumatic Ears: hearing grossly normal bilaterally and external ears normal General nose exam: Normal external nose present, no nasal discharge noted and no epistaxis Face and sinus: Yes normal facial exam, No abrasion and No laceration Mouth: Normal oral and palatal mucosa present, no drooling and no muffled voice Eyes General: appearance normal, both eyes and all related structures Periorbital: periorbital findings normal Eyelids: Yes eyelids normal Conjunctivae: conjunctivae normal Pupils: Equal, round and reactive pupils present EOM: EOMs intact bilaterally Neck Neck: Yes normal visual inspection, Yes full ROM and Yes no lymphadenopathy Chest Chest palpation & inspection: normal inspection of the chest Resp Effort & Inspection: normal respiratory effort and able to speak in complete sentences GI Inspection: Yes normal to inspection Neuro General: patient oriented x3 and moves all extremities Cranial nerves: Yes Equal, round and reactive pupils present Cognition (Neuro): normal cognition Extrem General: Yes normal to inspection, Yes full ROM and Yes capillary refill normal Psych Appearance: grossly normal Mental Status: mental status grossly normal Affect: normal affect Attitude: cooperative Thought process: Normal thought process present Thought content: Normal thought content present Insight: Good insight present (Psych) Medical Decision Making Medical Decision Making MDM Narrative: Patient is a 19 year old assigned male at with no reported medical history presenting to the emergency department today with a sore throat, cough, and nasal congestion. Patient's physical exam was unremarkable. Patient's COVID-19 test was positive. Patient's influenza, RSV, and strep tests were negative. I explained my physical exam findings as well as all test results to the patient. I answered all questions asked by the patient. I stressed the importance of the patient taking his medication as directed (either prescribed or as the over the counter packaging recommends). I stressed the importance of the patient following up with his primary care provider. I stressed the importance of the patient returning to the emergency department immediately if his symptoms were to worsen or if he were to develop any dizziness, shortness of breath, difficulty breathing, chest pain, blurry vision, loss of vision, nausea, vomiting, abdominal pain, fever, chills, back pain, or any other complaints. Patient verbalized agreement and understanding with this treatment plan and discharge. Differential Diagnosis Differential Diagnoses: The differential diagnosis associated with the presentation includes COVID-19 Influenza RSV Viral illness Admission/Observation Consideration of admission/observation: Escalation of care including admission/observation considered Patient would have been admitted to the hospital had his work up had any findings where hospital admission was appropriate and his clinical presentation warranted hospital admission. Lab Data MDM Lab Attestation statement: I reviewed the patient's lab results. My interpretation of these results are in the MDM Rationale portion of this note. Labs: Lab Results 08/12/24 Range/Units 08:17 Influenza Type A (PCR) NEGATIVE (Negative) Influenza Type B (PCR) NEGATIVE (Negative) RSV RNA Qual (PCR) NEGATIVE (Negative) SARS-CoV-2 RNA (RT-PCR) POSITIVE A (Negative) S. pyogenes GrpA YOLA Negative (Negative) Tests considered The following testing was considered but not selected: I considered obtaining a chest x-ray however, the patient's current clinical presentation did not warrant this. I discussed this with the patient who verbalized understanding and agreement. Discharge Plan Discharge Clinical Impression: COVID-19 Patient Disposition: Home, Self-Care Instructions: COVID-19 (Coronavirus Disease 2019) (ED) Additional Instructions: Follow up with your primary care provider. Return to the emergency department immediately if your symptoms worsen or if you develop any dizziness, shortness of breath, difficulty breathing, chest pain, blurry vision, loss of vision, nausea, vomiting, abdominal pain, fever, chills, back pain, or any other complaints. Prescriptions: No Action naproxen [Naprosyn] 500 mg tablet 500 mg PO BID Qty: 10 0RF levofloxacin 500 mg tablet 500 mg PO DAILY Qty: 9 0RF cephalexin 500 mg capsule 500 mg PO QID 5 Days Qty: 20 0RF ibuprofen 600 mg tablet 600 mg PO Q6H PRN (Reason: pain) Qty: 30 0RF methocarbamol 750 mg tablet 750 mg PO Q8H PRN (Reason: muscle spasm) 3 Days Qty: 9 0RF lidocaine [AsperFlex (lidocaine)] 4 % adhesive patch,medicated 1 patch topical DAILY PRN (Reason: pain) Qty: 30 0RF Referrals: [facility] [place] Family Medicine [Provider Group] (Call to establish and follow up with a primary care provider. If you already have a primary care provider, please follow up with them.) [facility] [place] [facility] [Provider Group] (Call to establish and follow up with a primary care provider. If you already have a primary care provider, please follow up with them.) [facility] [place] [facility] [Provider Group] (Call to establish and follow up with a primary care provider. If you already have a primary care provider, please follow up with them.) Stand Alone Forms: Work/School Release Interventions: ED Discharge Assessment Last Done: 08/12/24 09:32 Discharge Date/Time: 08/12/24 09:32 Print Language: [place]
[2024-08-12 09:32] VITALS: BP 109/61; PULSE 89; RESP 18; TEMP 36.7; O2SAT 98
--- NOTE | 2024-08-12 12:14 | PC.NURSE ---
patient called to come picker/puller wallet that he left in bed, patient stating he will come pick it up now
== END 2024-08-12 09:32 | disposition home or self-care (01) ==
PROVIDERS: Emergency Provider Emergency Medicine
DX: U07.1 COVID-19 (principal); J02.9 Acute pharyngitis, unspecified
CPT/HCPCS: 0241U; 87651; 99282; 99283

== ENCOUNTER 2024-08-26 11:07 | Emergency (ER) | payer OTHER, SELFPAY ==
[2024-08-26 11:11] VITALS: BP 122/71; PULSE 75; RESP 19; TEMP 36.6; O2SAT 99; BMI 17.6
--- NOTE | 2024-08-26 11:12 | ED_ITS ---
HPI - General Adult General Chief complaint: Upper Respiratory Symptoms Stated complaint: wants covid test Time Seen by Provider: 08/26/24 12:10 Source: patient and RN notes reviewed Mode of arrival: ambulatory Limitations: no limitations History of Present Illness ED Provider: Stefanie Magana PA-C HPI narrative: This is a 17, with no known medical problems, here for a return to work note. He states that he had covid several weeks ago and his job needs a covid test to return back to work. He is feeling well and has no complaints. No fevers, chills, CP, SOB, abdominal pain, nausea, vomiting or diarrhea. No other concerns at this time. MD complaint: Work note Related Data Previous Rx's ?Medication ?Instructions ?Recorded levofloxacin 500 mg tablet 500 mg PO DAILY #9 tabs 11/10/21 naproxen 500 mg tablet (Naprosyn) 500 mg PO BID #10 tabs 11/10/21 ibuprofen 600 mg tablet 600 mg PO Q6H PRN pain #30 tabs 05/11/24 lidocaine 4 % topical patch 1 patch topical DAILY PRN pain #30 05/11/24 (AsperFlex (lidocaine)) ea methocarbamol 750 mg tablet 750 mg PO Q8H PRN muscle spasm 3 05/11/24 days #9 tabs cephalexin 500 mg capsule 500 mg PO QID 5 days #20 caps 08/10/24 Allergies Allergy/AdvReac Type Severity Reaction Status Date / Time No Known Allergies Allergy Verified 08/26/24 11:12 Review of Systems Review of Systems: Yes all other systems are reviewed and are negative Constitutional: Constitutional: Reports as per HPI [facility] Past Medical History Medical History ADHD Social History Social History Alcohol intake: never Advance Directives: No Advance Directives Information Provided: Yes Do you have a plan to hurt others: No Plan Physical Exam ED Vital Signs: Vital Signs - 24 hr 08/26/24 11:11 08/26/24 12:30 Temperature 98 F 98 F Pulse Rate 75 75 Respiratory Rate 19 19 Blood Pressure 122/71 122/71 Pulse Oximetry 99 99 Oxygen Delivery Method Room Air Room Air BMI result Body Mass Index 17.6 Const General: cooperative, comfortable and no acute distress Orientation/consciousness: patient oriented x3 Limitations: no limitations HENMT Head: Yes normal to inspection, Yes normocephalic and Yes atraumatic Ears: hearing grossly normal bilaterally General nose exam: Normal external nose present Face and sinus: Yes normal facial exam Mouth: Normal oral and palatal mucosa present, oropharynx normal and moist mucous membranes Throat: Yes posterior oropharynx normal Eyes General: appearance normal, both eyes and all related structures Eyelids: Yes eyelids normal Conjunctivae: conjunctivae normal Sclerae: sclerae normal Pupils: Equal, round and reactive pupils present EOM: EOMs intact bilaterally Neck Neck: Yes normal visual inspection, Yes full ROM and Yes no lymphadenopathy Lymphatic: no lymphadenopathy noted Chest Chest palpation & inspection: normal inspection of the chest Resp Effort & Inspection: normal respiratory effort and able to speak in complete sentences Auscultation: clear to auscultation bilaterally, no crackles, no rales, no rhonchi and no wheezes Cardio Rate: regular rate Rhythm: regular rhythm Heart sounds: S1 normal heart sound present and S2 normal heart sound present GI Inspection: Yes normal to inspection Skin General skin exam: no rashes or lesions noted Trauma: no lacerations or abrasions Wounds: no wounds Neuro General: patient oriented x3 and moves all extremities Cranial nerves: Yes Equal, round and reactive pupils present Extrem General: Yes normal to inspection Right upper extremity: normal to inspection Left upper extremity: normal to inspection Right lower extremity: normal to inspection Left lower extremity: normal to inspection Course Course Course Narrative: This is a Rapid Medical Examination (RME) performed by Khadijah Chirinos PA-C in triage. Full HPI, ROS, assessment and treatment plan per primary provider in the Main ED. 19 yo male here for eval of cough and body aches x24 hours. requesting covid testing for work. Plan: viral swabs Medical Decision Making Medical Decision Making [facility] Narrative: 19 y/o M here for work note. He tested positive for covid several weeks ago. He needs a negative covid test to return back to work. He is feeling well and has no complaints. VSS, he is well appearing, lungs CTAB. Viral swabs collected and are negative. Discussed with patient. Stable for d.c Differential Diagnosis Differential Diagnoses: The differential diagnosis associated with the presentation includes covid, flu, work note, wellness check, anxiety Lab Data MDM Lab Attestation statement: I reviewed the patient's lab results. negative Labs: Lab Results 08/26/24 Range/Units 11:17 Influenza Type A (PCR) NEGATIVE (Negative) Influenza Type B (PCR) NEGATIVE (Negative) RSV RNA Qual (PCR) NEGATIVE (Negative) SARS-CoV-2 RNA (RT-PCR) NEGATIVE (Negative) Discharge Plan Discharge Clinical Impression: Resolved [id number] syndrome Patient Disposition: Home, Self-Care Instructions: COVID-19 (Coronavirus Disease 2019) (ED) Additional Instructions: You were seen in the emergency department for COVID test. You tested negative for COVID, flu, and RSV today. Please continue to stay well hydrated. Follow-up with your primary care physician. If any new or worsening symptoms occur including but not limited to chest pain or shortness for breath, please seek emergent care. Prescriptions: No Action naproxen [Naprosyn] 500 mg tablet 500 mg PO BID Qty: 10 0RF levofloxacin 500 mg tablet 500 mg PO DAILY Qty: 9 0RF cephalexin 500 mg capsule 500 mg PO QID 5 Days Qty: 20 0RF ibuprofen 600 mg tablet 600 mg PO Q6H PRN (Reason: pain) Qty: 30 0RF methocarbamol 750 mg tablet 750 mg PO Q8H PRN (Reason: muscle spasm) 3 Days Qty: 9 0RF lidocaine [AsperFlex (lidocaine)] 4 % adhesive patch,medicated 1 patch topical DAILY PRN (Reason: pain) Qty: 30 0RF Stand Alone Forms: Work/School Release Interventions: ED Discharge Assessment Last Done: 08/26/24 12:30 Discharge Date/Time: 08/26/24 12:31 Print Language: Yi
[2024-08-26 12:07] LABS: Influenza A PCR NEGATIVE (Negative); Influenza B PCR NEGATIVE (Negative); Resp Syncy Virus RNA Qual PCR NEGATIVE (Negative); SARS COV2 PCR INHOUSE NEGATIVE (Negative)
[2024-08-26 12:30] VITALS: BP 122/71; PULSE 75; RESP 19; TEMP 36.6; O2SAT 99
== END 2024-08-26 12:31 | disposition home or self-care (01) ==
PROVIDERS: Physician Assistant Medical; Emergency Provider Emergency Medicine; PCP Pediatrics
DX: Z02.79 Encounter for issue of other medical certificate (principal); Z03.818 Encounter for observation for suspected exposure to other biological agents ruled out
CPT/HCPCS: 0241U; 99283

== ENCOUNTER 2024-09-04 12:58 | Emergency (ER) | payer OTHER, SELFPAY ==
[2024-09-04 13:14] VITALS: BP 155/65; PULSE 58; RESP 18; TEMP 36.5; O2SAT 98; BMI 18.3
--- NOTE | 2024-09-04 13:14 | ED.URI ---
HPI - URI/Sore Throat General Chief Complaint: Upper Respiratory Symptoms Stated Complaint: Sore throat cough Time Seen by Provider: 09/04/24 14:12 Source: patient Mode of arrival: ambulatory Limitations: no limitations History of Present Illness ED Provider: Yuliana Layne APRN HPI Narrative: 19-year-old male previously healthy here with complaints of cough and sore throat with waking. Patient denies fevers, chills, difficulty breathing, difficulty swallowing, chest pain, headache, neck pain, neck stiffness, vomiting, diarrhea, abdominal pain. No recent travel or sick contacts. Cough is nonproductive. Related Data Previous Rx's ?Medication ?Instructions ?Recorded levofloxacin 500 mg tablet 500 mg PO DAILY #9 tabs 11/10/21 naproxen 500 mg tablet (Naprosyn) 500 mg PO BID #10 tabs 11/10/21 ibuprofen 600 mg tablet 600 mg PO Q6H PRN pain #30 tabs 05/11/24 lidocaine 4 % topical patch 1 patch topical DAILY PRN pain #30 05/11/24 (AsperFlex (lidocaine)) ea methocarbamol 750 mg tablet 750 mg PO Q8H PRN muscle spasm 3 05/11/24 days #9 tabs cephalexin 500 mg capsule 500 mg PO QID 5 days #20 caps 08/10/24 Allergies Allergy/AdvReac Type Severity Reaction Status Date / Time No Known Allergies Allergy Verified 09/04/24 13:16 Review of Systems Review of Systems: Yes all other systems are reviewed and are negative Constitutional: Constitutional: Reports no additional constitutional complaints, Denies body ache(s), Denies chills, Denies fever(s), Denies headache(s) and Denies weakness Eyes: Eyes: Reports no additional eye complaints and Denies change in vision ENT: Reports system reviewed and no additional complaints, except as documented, Denies dizziness, Denies headache(s), Denies nasal congestion, Denies nasal discharge, Denies neck pain and Reports sore throat Cardiovascular: Cardiovascular: Reports no additional cardiovascular complaints, Denies chest pain, Denies leg edema and Denies dyspnea Respiratory: Respiratory: Reports no additional respiratory complaints, Reports cough and Denies dyspnea Gastrointestinal: Gastrointestinal: Reports no additional gastrointestinal complaints, Denies abdominal pain, Denies diarrhea, Denies nausea and Denies vomiting Genitourinary: Genitourinary: Denies urinary incontinence Musculoskeletal: Musculoskeletal: Reports no additional musculoskeletal complaints, Denies back pain, Denies arthralgias, Denies joint swelling, Denies neck pain, Denies numbness and Denies tingling Integumentary/Breasts: Skin/Breast: Reports system reviewed and no additional complaints, except as docu and Denies rash Neurologic: Reports system reviewed and no additional complaints, except as documented, Denies Abnormal speech present, Denies dizziness, Denies headache(s), Denies numbness, Denies tingling and Denies weakness [facility] Past Medical History Attestation statement: The following information was validated with the patient. Source: old records reviewed and nursing notes reviewed Medical History ADHD Social History Social History Alcohol intake: never Advance Directives: No Advance Directives Information Provided: Yes Do you have a plan to hurt others: No Plan Physical Exam Vital Signs: Vital Signs: Last Vital Signs Temp 97.7 F 09/04/24 13:14 Pulse 58 09/04/24 13:14 Resp 18 09/04/24 13:14 BP 155/65 H 09/04/24 13:14 Pulse Ox 98 09/04/24 13:14 O2 Del Method Room Air 09/04/24 13:14 BMI result Body Mass Index 18.3 Const: General: cooperative, healthy appearing, comfortable and no acute distress Orientation/consciousness: patient oriented x3 Limitations: no limitations HEENT: Head: Yes normal to inspection Ears: hearing grossly normal bilaterally and TM's normal bilaterally General nose exam: Normal external nose present Face and sinus: Yes normal facial exam Mouth: Normal oral and palatal mucosa present Throat: Yes posterior oropharynx normal, Yes tonsils normal and Yes uvula midline Eyes: General: appearance normal, both eyes and all related structures Pupils: Equal, round and reactive pupils present Neck: Neck: Yes normal visual inspection, Yes full ROM, Yes no lymphadenopathy and Yes no meningeal signs Chest: Chest palpation & inspection: normal inspection of the chest Resp: Effort & Inspection: normal respiratory effort Auscultation: clear to auscultation bilaterally Cardio: Rate: regular rate Rhythm: regular rhythm Peripheral pulses: Peripheral pulses 2+ throughout GI: Inspection: Yes normal to inspection Palpation (GI): Soft to palpation and nontender Auscultation: normal bowel sounds Back/Spine/Pelvis: Thoracic/Lumbar Spine: thoracic and lumbar spine normal to inspection Skin: General skin exam: no rashes or lesions noted Neuro: General: patient oriented x3, no meningeal signs, no focal motor deficits and normal sensation to monofilament Cranial nerves: Yes Equal, round and reactive pupils present Cognition (Neuro): normal cognition Speech: No Abnormal speech present Gait exam (Neuro): Normal gait present Motor exam (neuro): 5/5 motor strength present throughout Extrem: General: Yes normal to inspection Course Course Course Narrative: This is an RME: Additional HPI, ROS, PE not included below will be deferred to primary provider. RME assessment and note performed by: Stefanie Magana PA-C This is a 59-ljmq-q-male who presents to the ER with complaints of dry cough, sore throat and headache x 2 days. No CP, SOB. OP is erythematous. Speaking in full sentences. Plan: Viral swabs, strep swab Reevaluation(s) Reevaluation #1: testing is all negative. Likely viral syndrome. Reviewed supportive care at home. Reviewed worrisome signs and symptoms of when to return to the emergency room. Comfortable plan for discharge home. Medical Decision Making Medical Decision Making [facility] Narrative: 19-year-old male previously healthy here with complaints of cough and sore throat with waking. Patient denies fevers, chills, difficulty breathing, difficulty swallowing, chest pain, headache, neck pain, neck stiffness, vomiting, diarrhea, abdominal pain. No recent travel or sick contacts. Cough is nonproductive. Exam is benign Will send viral testing and strep testing Differential Diagnosis Differential Diagnoses: The differential diagnosis associated with the presentation includes influenza, viral syndrome, strep pharyngitis Low suspicion for RPA, BRIDGE CONTRACTOR, epiglottitis, Tong's angina based on clinical exam Admission/Observation Consideration of admission/observation: Escalation of care including admission/observation considered Low suspicion for RPA, BRIDGE CONTRACTOR, epiglottitis, Tong's angina based on clinical exam requiring advanced imaging, ENT consultation and or admission Lab Data [facility] Lab Attestation statement: I reviewed the patient's lab results. Labs: Lab Results 09/04/24 Range/Units 13:25 Influenza Type A (PCR) NEGATIVE (Negative) Influenza Type B (PCR) NEGATIVE (Negative) RSV RNA Qual (PCR) NEGATIVE (Negative) SARS-CoV-2 RNA (RT-PCR) NEGATIVE (Negative) S. pyogenes GrpA YOLA Negative (Negative) Tests considered The following testing was considered but not selected: Low suspicion for RPA, BRIDGE CONTRACTOR, epiglottitis, Tong's angina based on clinical exam requiring advanced imaging Prescription Management I considered prescription management with: Antibiotic Discharge Plan Discharge Clinical Impression: Viral infection Patient Disposition: Home, Self-Care Instructions: Viral Syndrome (ED) Additional Instructions: testing for flu, COVID, RSV and strep are negative Take Motrin or Tylenol for any pain or fever Increase fluids, rest Return for worsening symptoms Prescriptions: No Action naproxen [Naprosyn] 500 mg tablet 500 mg PO BID Qty: 10 0RF levofloxacin 500 mg tablet 500 mg PO DAILY Qty: 9 0RF cephalexin 500 mg capsule 500 mg PO QID 5 Days Qty: 20 0RF ibuprofen 600 mg tablet 600 mg PO Q6H PRN (Reason: pain) Qty: 30 0RF methocarbamol 750 mg tablet 750 mg PO Q8H PRN (Reason: muscle spasm) 3 Days Qty: 9 0RF lidocaine [AsperFlex (lidocaine)] 4 % adhesive patch,medicated 1 patch topical DAILY PRN (Reason: pain) Qty: 30 0RF Referrals: Physician,None [Primary Care Provider] - 1 week Stand Alone Forms: Work/School Release Print Language: Cape Verdean
[2024-09-04 13:43] LABS: IDNOW Serial# 58CA691E; Strep A Nucleic Acid Negative (Negative)
[2024-09-04 14:09] LABS: Influenza A PCR NEGATIVE (Negative); Influenza B PCR NEGATIVE (Negative); Resp Syncy Virus RNA Qual PCR NEGATIVE (Negative); SARS COV2 PCR INHOUSE NEGATIVE (Negative)
[2024-09-04 14:43] VITALS: BP 155/65; PULSE 58; RESP 18; TEMP 36.5; O2SAT 98
== END 2024-09-04 14:44 | disposition home or self-care (01) ==
PROVIDERS: Physician Assistant Medical; Emergency Provider Emergency Medicine
DX: B34.9 Viral infection, unspecified (principal); R05.9 Cough, unspecified; J02.9 Acute pharyngitis, unspecified; Z03.818 Encounter for observation for suspected exposure to other biological agents ruled out
CPT/HCPCS: 0241U; 87651; 99282; 99283

== ENCOUNTER 2024-09-06 13:56 | Emergency (ER) | payer OTHER, SELFPAY ==
[2024-09-06 14:05] VITALS: BP 117/70; PULSE 56; RESP 16; TEMP 36.8; O2SAT 97; BMI 18.0
--- NOTE | 2024-09-06 14:05 | ED.GENADULT ---
HPI - General Adult General Chief complaint: General Medical Stated complaint: Not Feeling Well Time Seen by Provider: 09/06/24 17:09 Source: patient, RN notes reviewed and old records reviewed Mode of arrival: ambulatory Limitations: no limitations History of Present Illness ED Provider: Diana [facility] narrative: Patient is a 19-year-old male presenting with complaint of nausea, sore throat, body aches x 1 week. Specifically requesting Covid testing. Denies fevers, abdominal pain, vomiting or diarrhea. Denies chest pain or shortness of breath. MD complaint: sore throat Onset (ago): week(s) Treatments prior to arrival: none Related Data Previous Rx's ?Medication ?Instructions ?Recorded levofloxacin 500 mg tablet 500 mg PO DAILY #9 tabs 11/10/21 naproxen 500 mg tablet (Naprosyn) 500 mg PO BID #10 tabs 11/10/21 ibuprofen 600 mg tablet 600 mg PO Q6H PRN pain #30 tabs 05/11/24 lidocaine 4 % topical patch 1 patch topical DAILY PRN pain #30 05/11/24 (AsperFlex (lidocaine)) ea methocarbamol 750 mg tablet 750 mg PO Q8H PRN muscle spasm 3 05/11/24 days #9 tabs cephalexin 500 mg capsule 500 mg PO QID 5 days #20 caps 08/10/24 Allergies Allergy/AdvReac Type Severity Reaction Status Date / Time No Known Allergies Allergy Verified 09/06/24 14:06 Review of Systems Review of Systems: As per HPI Yes all other systems are reviewed and are negative Constitutional: Constitutional: Reports as per HPI [facility] Past Medical History Medical History ADHD Social History Social History Alcohol intake: never Do you have a plan to hurt others: No Plan Physical Exam ED Vital Signs: Vital Signs - 24 hr 09/06/24 14:05 Temperature 98.2 F Pulse Rate 56 Respiratory Rate 16 Blood Pressure 117/70 Pulse Oximetry 97 Oxygen Delivery Method Room Air BMI result Body Mass Index 18.0 Vital signs have been reviewed and appear to be correct. Blood pressure normal. Heart rate normal. Respiratory rate normal. Temperature normal. Oxygen saturation normal. Const General: cooperative, healthy appearing and no acute distress Orientation/consciousness: oriented to person, oriented to place, oriented to time and patient oriented x3 Limitations: no limitations HENMT Head: Yes normocephalic and Yes atraumatic Ears: external ears normal, TM's normal bilaterally and EAC's normal General nose exam: Normal external nose present and Normal nasal mucous membranes and turbinates present Face and sinus: Yes face symmetric Mouth: Normal oral and palatal mucosa present, lip normal, tongue normal, oropharynx normal and moist mucous membranes Throat: Yes posterior oropharynx normal, Yes tonsils normal, Yes uvula midline, No peritonsillar mass and No uvular edema Eyes Pupils: Equal, round and reactive pupils present Neck Neck: Yes normal visual inspection, Yes no lymphadenopathy and Yes supple Resp Effort & Inspection: normal respiratory effort and able to speak in complete sentences Auscultation: clear to auscultation bilaterally Cardio Rate: regular rate Rhythm: regular rhythm Heart sounds: S1 normal heart sound present and S2 normal heart sound present GI Palpation (GI): Soft to palpation and nontender Auscultation: normoactive bowel sounds General: Yes no CVA tenderness Back/Spine/Pelvis Back: no CVA tenderness Skin General skin exam: elasticity normal and turgor normal Neuro General: oriented to person, oriented to place, oriented to time, patient oriented x3, moves all extremities, no focal motor deficits and CN's II-XI intact bilaterally Cranial nerves: Yes Equal, round and reactive pupils present Cognition (Neuro): normal cognition Extrem General: Yes full ROM, Yes no pedal edema and Yes no calf tenderness Psych Mental Status: mental status grossly normal Affect: normal affect Thought process: Normal thought process present Course Course Course Narrative: This is a rapid medical exam performed by Tatum Ortiz NP: Additional HPI, ROS, PE not included below will be deferred to primary provider. Patient is a 19-year-old male presenting with complaint of nausea, sore throat, body aches x 1 week. Specifically requesting Covid testing. Plan: strep and viral serology Medical Decision Making Medical Decision Making [facility] Narrative: Patient is a 19-year-old male presenting with complaint of nausea, sore throat, body aches x 1 week. On exam patient is awake, A+Ox3, VS WNL, afebrile, normal neurological exam without focal deficits, physical exam findings as above. Given reported symptoms and physical exam findings, initial differential includes but is not limited to viral illness, covid, flu, rsv, strep pharyngitis. Strep and viral serology negative. Physical exam unremarkable. Results discussed with patient all questions answered. Follow-up with PCP as needed. Return precautions discussed. Patient verbalized understanding of and agreement with plan. Differential Diagnosis Differential Diagnoses: The differential diagnosis associated with the presentation includes As per [facility] Lab Data [facility] Lab Attestation statement: I reviewed the patient's lab results. As per [facility] Labs: Lab Results 09/06/24 Range/Units 15:37 Influenza Type A (PCR) NEGATIVE (Negative) Influenza Type B (PCR) NEGATIVE (Negative) RSV RNA Qual (PCR) NEGATIVE (Negative) SARS-CoV-2 RNA (RT-PCR) NEGATIVE (Negative) S. pyogenes GrpA YOLA Negative (Negative) External Record Review External record reviewed: Inpatient record, Office record and Outpatient record Discharge Plan Discharge Clinical Impression: Viral illness Patient Disposition: Home, Self-Care Instructions: Viral Syndrome (ED) Additional Instructions: You were evaluated in the emergency department today for sore throat and body aches. Your Covid, flu, RSV, and strep tests were all negative. Your symptoms are likely related to a viral illness which will resolve on its own with time and rest. You should ensure adequate fluid intake, and can use Tylenol 650 mg or ibuprofen 600 mg every 6 hours as needed for fever or discomfort. We also recommend using over the counter nasal saline spray to thin your mucous. Please follow-up with your primary care provider this week. Return to the emergency department if you develop chest pain, worsening shortness of breath, difficulty swallowing, fever 100.4? F or greater or any other concerning symptoms. Prescriptions: No Action naproxen [Naprosyn] 500 mg tablet 500 mg PO BID Qty: 10 0RF levofloxacin 500 mg tablet 500 mg PO DAILY Qty: 9 0RF cephalexin 500 mg capsule 500 mg PO QID 5 Days Qty: 20 0RF ibuprofen 600 mg tablet 600 mg PO Q6H PRN (Reason: pain) Qty: 30 0RF methocarbamol 750 mg tablet 750 mg PO Q8H PRN (Reason: muscle spasm) 3 Days Qty: 9 0RF lidocaine [AsperFlex (lidocaine)] 4 % adhesive patch,medicated 1 patch topical DAILY PRN (Reason: pain) Qty: 30 0RF Stand Alone Forms: Work/School Release Print Language: Egyptian
[2024-09-06 15:51] LABS: IDNOW Serial# 58CA691E; Strep A Nucleic Acid Negative (Negative)
[2024-09-06 16:20] LABS: Influenza A PCR NEGATIVE (Negative); Influenza B PCR NEGATIVE (Negative); Resp Syncy Virus RNA Qual PCR NEGATIVE (Negative); SARS COV2 PCR INHOUSE NEGATIVE (Negative)
[2024-09-06 17:27] VITALS: BP 117/70; PULSE 56; RESP 16; TEMP 36.8; O2SAT 97
--- OUTSIDE RECORDS SUMMARY | 2024-09-06 18:29 | XMS_ITS | Encounter Summary ---
Author Organization [facility] Address [address] [place] [address] Phone Care Team Providers Care Business Transformation Analyst Name Role Phone ProviderMarcel MD Primary Care Provider [phone] Encounter Details Date Type Department Care Team (Late st Contact Info) Description 07/03/2010 Documentation [facility] [place] Family Medicine [address] [place] [address] Family Medicine, Physician [address], [place] [id number] Social History Tobacco Use Types Packs/Day Years Used Date Smoking Tobacco: Never Assessed Sex and Gender Information Value Date Recorded Sex Assigned at Male 01/04/2020 2:49 PM EDT Legal Sex Male 5:13 PM EDT Gender Identity Male 01/04/2020 2:49 PM EDT Sexual Orientation Straight 01/04/2020 2: 49 PM EDT documented as of this encounter Plan of Treatment Not on file documented as of this encounter Visit Diagnoses Not on filedocumented in this encounter Care Teams Business Transformation Analyst Relationship Specialty Start Date End Date Provider, MD Marcel [address] [place] [address] PCP - General Pediatrics 02/04/24 documented as of this encounter
--- OUTSIDE RECORDS SUMMARY | 2024-09-06 18:29 | XMS_ITS | Encounter Summary ---
Author Organization [facility] Address [address] [place] [address] Phone Care Team Providers Care Bit Sharpener Name Role Phone ProviderMarcel MD Primary Care Provider [phone] Encounter Details Date Type Department Care Team (Late st Contact Info) Description 01/08/2016 Documentation [facility] Family Medicine [address] [place] [address] Family Medicine, Physician [address], [place] [id number] Social History Tobacco Use Types Packs/Day Years [...] on filedocumented in this encounter Care Teams Bit Sharpener Relationship Specialty Start Date End Date Provider, MD Marcel [address] [place] [address] PCP - General Pediatrics 02/04/24 documented as of this encounter
--- OUTSIDE RECORDS SUMMARY | 2024-09-06 18:29 | XMS_ITS | Encounter Summary ---
Author Organization [facility] Address [address] [place] [address] Phone Care Team Providers Care Strike On Machine Operator Name Role Phone ProviderMarcel MD Primary Care Provider [phone] Encounter Details Date Type Department Care Team (Late st Contact Info) Description 01/08/2016 Documentation [facility] [place] Medicine [address] [place] [address] Family Medicine, Physician [address], [place] [address] Social History Tobacco Use Types Packs/Day Years [...] on filedocumented in this encounter Care Teams Strike On Machine Operator Relationship Specialty Start Date End Date Provider, MD Marcel [address] [place] [address] PCP - General Pediatrics 02/04/24 documented as of this encounter
--- OUTSIDE RECORDS SUMMARY | 2024-09-06 18:29 | XMS_ITS | Encounter Summary ---
Author Organization [facility] Address [address] [place] [address] Phone Care Team Providers Care Vocational Evaluator Name Role Phone Provider, Marcel VIZCAINO Primary Care Provider [phone] Reason for Visit * Reason Comments ED Admission Encounter Details Date Type Department Care Team (Late st Contact Info) Description 08/26/2024 11:07 AM EST - 08/26/2024 12:31 PM [facility] Hospital Encounter [facility] - Patient Ping Social History Tobacco Use Types Packs/Day Years Used Date Smoking Tobacco: Never Smokeless Tobacco: Never Alcohol Use Standard Drinks/Week Comments No 0 (1 standard drink = 0.6 oz pur e alcohol) Hunger/Food Answer Date Recorded In the last 12 months, did y ou or your family ever eat less than you felt you should because there wasn't enough money for food? No 08/25/2023 Stable Housing Answer Date Recorded Are you worried that in the next 2 months you may not have stable housing? No 08/25/2023 Transportation Concerns Answer Date Rec orded In the last 12 months, have you or your family ever had to go without healthcare because you didn't have a way to get there? No 08/25/2023 Hazards in Home Answer Date Recorded Think about the place you li ve. Do you have problems with any of the following? Pests (mice or roaches), mold, no/not working smoke detectors, water leaks, no window guards. No 2023 Financing Utilities Answer Date Recorde d In the last 12 months, has t he electric, gas, oil, or water company threatened to shut off your services in your home? No 08/25/2023 Safety at Home Answer Date Recorded Are you or your family worried about feeling saf e in your home? No 08/25/2023 Outside Support Answer Date Recorded Do you feel that you need mo re support from other people or programs to help you care for yourself or your family? No 08/25/2023 Understanding Health Concerns Answer Da te Recorded Do you need help understandi ng your or your child's healthcare needs (diagnosis, medications, plan, etc.)? No 08/25/2023 Financing Health Concerns Answer Date R ecorded In the last 12 months, was t here a time when your child needed to see a doctor or get medications or supplies but could not because of cost? No 08/25/2023 Missing School or Work Answer Date Freddie rded Did you or your child miss s chool or work because of a health problem that could have been avoided? No 08/25/2023 Sex and Gender Information Value Date Recorded Sex Assigned at Male 01/04/2020 2:49 PM EDT Legal Sex Male 5:13 PM EDT Gender Identity Male 01/04/2020 2:49 PM EDT Sexual Orientation Straight 01/04/2020 2: 49 PM EDT documented as of this encounter Medications at Time of Discharge mometasone 0.1 % creamIndications :Brown's nevus Apply to rash on chest when itchy twice daily. 30 g 3 01/04/2020 tretinoin (Retin-A) 0.1 % creamIndications :Acne vulgaris Apply sparingly twice a week, then increase to daily or every other day as tolerated. 45 g 5 04/24/2021 documented as of this encounter Plan of Treatment Not on file documented as of this encounter Visit Diagnoses Not on filedocumented in this encounter Care Teams Vocational Evaluator Relationship Specialty Start Date End Date Provider, MD Marcel [address] [place] [address] PCP - General Pediatrics 02/04/24 documented as of this encounter
--- OUTSIDE RECORDS SUMMARY | 2024-09-06 18:29 | XMS_ITS | Encounter Summary ---
Author Organization [facility] Address [address] [place] [address] Phone Care Team Providers Care Aeronautics Commission Director Name Role Phone Provider, Marcel VIZCAINO Primary Care Provider [phone] Encounter Details Date Type Department Care Team (Late st Contact Info) Description 04/01/2017 Conversion Encounter [facility] [address] [place], [place] [id number] Social History Tobacco Use Types Packs/Day Years [...] on filedocumented in this encounter Care Teams Aeronautics Commission Director Relationship Specialty Start Date End Date Provider, MD Marcel [address] [place] [address] PCP - General Pediatrics 02/04/24 documented as of this encounter
--- OUTSIDE RECORDS SUMMARY | 2024-09-06 18:29 | XMS_ITS | Encounter Summary ---
Author Organization [facility] Address [address] [place] [address] Phone Care Team Providers Care Social Media Sr Strategy Manager Name Role Phone Provider, Marcel VIZCAINO Primary Care Provider [phone] Reason for Visit * Reason Comments ED Admission Encounter Details Date Type Department Care Team (Late st Contact Info) Description 08/12/2024 7:49 AM EST - 08/12/2024 9:32 AM [facility] Hospital Encounter [facility] - Patient Ping Social History Tobacco Use [...] on filedocumented in this encounter Care Teams Social Media Sr Strategy Manager Relationship Specialty Start Date End Date Provider, MD Marcel [address] [place] [address] PCP - General Pediatrics 02/04/24 documented as of this encounter
--- OUTSIDE RECORDS SUMMARY | 2024-09-06 18:29 | XMS_ITS | Encounter Summary ---
Author Organization [facility] Address [address] [place] [address] Phone Care Team Providers Care Seam Finisher Name Role Phone Provider, Marcel VIZCAINO Primary Care Provider [phone] Reason for Visit * Reason Comments ED Admission Encounter Details Date Type Department Care Team (Late st Contact Info) Description 09/06/2024 1:56 PM EST - 09/06/2024 5:29 PM [facility] Hospital Encounter [facility] - Patient Ping Social History Tobacco [...] on filedocumented in this encounter Care Teams Seam Finisher Relationship Specialty Start Date End Date Provider, MD Marcel [address] [place] [address] PCP - General Pediatrics 02/04/24 documented as of this encounter
--- OUTSIDE RECORDS SUMMARY | 2024-09-06 18:29 | XMS_ITS | Encounter Summary ---
Author Organization [facility] Address [address] [place] [address] Phone Care Team Providers Care Clinical Resource Coordinator Name Role Phone Provider, Marcel VIZCAINO Primary Care Provider [phone] Reason for Visit * Reason Comments ED Admission Encounter Details Date Type Department Care Team (Late st Contact Info) Description 09/04/2024 12:58 PM EST - 09/04/2024 2:44 PM [facility] Hospital Encounter [facility] - Patient Ping Social History Tobacco [...] on filedocumented in this encounter Care Teams Clinical Resource Coordinator Relationship Specialty Start Date End Date Provider, MD Marcel [address] [place] [address] PCP - General Pediatrics 02/04/24 documented as of this encounter
--- OUTSIDE RECORDS SUMMARY | 2024-09-06 18:29 | XMS_ITS | Encounter Summary ---
Author Organization [facility] Address [address] [place] [address] Phone Care Team Providers Care Clay Shop Supervisor Name Role Phone ProviderMarcel MD Primary Care Provider [phone] Encounter Details Date Type Department Care Team (Late st Contact Info) Description 09/20/2014 Documentation [facility] Family Medicine [address] [place] [address] Family Medicine, Physician [address] [place] [address] Social History Tobacco Use Types Packs/Day Years [...] on filedocumented in this encounter Care Teams Clay Shop Supervisor Relationship Specialty Start Date End Date Provider, MD Marcel [address] [place] [address] PCP - General Pediatrics 02/04/24 documented as of this encounter
--- OUTSIDE RECORDS SUMMARY | 2024-09-06 18:29 | XMS_ITS | Encounter Summary ---
Author Organization [facility] Address [address] [place] [address] Phone Care Team Providers Care Partridge Farmer Name Role Phone Provider, Marcel VIZCAINO Primary Care Provider [phone] Reason for Visit * Reason Onset Date Comments ER f/u 09/05/2024 Encounter Details Date Type Department Care Team (Late st Contact Info) Description 09/05/2024 Telephone [facility] [address] [place] [address] Anastasia Hanson LPN [address] [place] [address] ER f/u Social History Tobacco Use Types Packs/Day Years [...] PM EDT documented as of this encounter Miscellaneous Notes * Telephone Encounter - Vianca Ruiz MD - 09/05/2024 4:00 PM EST Great; thank you * Telephone Encounter - Mounika Frey - 09/05/2024 3:16 PM EST Reached out to patient. Left message on unidentified vm with my name number and extension to pleasereturn my call. * Telephone Encounter - Vianca Ruiz MD - 09/05/2024 2:41 PM EST Can someone reach out to him regarding frequent ER visits and need for well visit or consider change to adult provider given his age and no current provider; thanks * Telephone Encounter - Anastasia Hanson LPN - 09/05/2024 2:25 PM EST Call placed regarding ER visit to [facility] on 09/[address] All test came back negative per ER notes. Left message to call office ER notes printed and in triage for medical records to scan into chart LM- this is the 7th ER visit since 04/2024 documented in this encounter Plan of Treatment Not on file documented as of this encounter Visit Diagnoses Not on filedocumented in this encounter Care Teams Partridge Farmer Relationship Specialty Start Date End Date Provider, MD Marcel [address] [place] [phone] PCP - General Pediatrics 02/04/24 documented as of this encounter
--- OUTSIDE RECORDS SUMMARY | 2024-09-06 18:29 | XMS_ITS | Encounter Summary ---
Author Organization [facility] Address [address] [place] [address] Phone Care Team Providers Care Physical Education Aide Name Role Phone ProviderMarcel MD Primary Care Provider [phone] Encounter Details Date Type Department Care Team (Late st Contact Info) Description 01/09/2016 Documentation [facility] Family Medicine [address] [place] [address] Family Medicine, Physician [address] [place], [place] [address] Social History Tobacco Use Types Packs/Day Years [...] on filedocumented in this encounter Care Teams Physical Education Aide Relationship Specialty Start Date End Date Provider, MD Marcel [address] [place] [address] PCP - General Pediatrics 02/04/24 documented as of this encounter
--- OUTSIDE RECORDS SUMMARY | 2024-09-06 18:29 | XMS_ITS | Encounter Summary ---
Author Organization [facility] Address [address] [place] [address] Phone Care Team Providers Care Poultry Helper Name Role Phone Provider, Marcel VIZCAINO Primary Care Provider [phone] Reason for Visit * Reason Onset Date Comments ER f/u 08/29/2024 Encounter Details Date Type Department Care Team (Late st Contact Info) Description 08/29/2024 Telephone [facility] [address] [place] [address] Hernan Dhillon RN [address] [place] [address] ER f/u Social History Tobacco Use Types [...] encounter Miscellaneous Notes * Telephone Encounter - Hernan Dhillon RN - 08/29/2024 2:25 PM EST Call placed to pt re; ER visit at [facility] on 08/26/24. Pt went d/t needing a negative covid test to return to work. Pt did not currently have any symptoms. Pt states he is doing well w/ no concerns at this time. [facility] ER notes printed for scanning. documented in this encounter Plan of Treatment Not on file documented as of this encounter Visit Diagnoses Not on filedocumented in this encounter Care Teams Poultry Helper Relationship Specialty Start Date End Date Provider, MD Marcel [address] [place] [phone] PCP - General Pediatrics 02/04/24 documented as of this encounter
--- OUTSIDE RECORDS SUMMARY | 2024-09-06 18:29 | XMS_ITS | Clinical Summary ---
Author Organization [facility] Address [address] [place] [address] Phone Care Team Providers Care Expansion Joint Builder Name Role Phone Provider, Marcel VIZCAINO Primary Care Provider [phone] Allergies No known active allergies Medications mometasone 0.1 % creamIndication s:Brown's nevus Apply to rash on chest when itchy twice daily. 30 g 3 0 Active Additional Information Patient not taking.Reported on 08/25/2023 tretinoin (Retin-A) 0.1 % creamIndication s:Acne vulgaris Apply sparingly twice a week, then increase to daily or every other day as tolerated. 45 g 5 1 Active Additional Information Patient not taking.Reported on 08/25/2023 Active Problems Problem Noted Date Diagnosed Date Abnormal weight loss 08/25/2023 Assessment & Plan (08/25/2023 12:01 PM EST): I suspect this is related to substance use and very busy schedule, but will check some lab work. COVID-19 vaccination declined 08/25/2023 Influenza vaccination declined 08/25/2023 Cannabis dependence, daily use 08/25/2023 Assessment & Plan (08/25/2023 11:59 AM EST): States he agrees he uses too much, but it helps him 'deal with life' - offered behav health/ discussed subst abuse program.. declines at this time, states he can work on this. 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 Assessment & Plan (08/25/2023 12:01 PM EST): No signif change Resolved Problems Problem Noted Date Diagnosed Date Resolved Date History of COVID-19 11/13/2020 08/25/19 24 Overview (11/28/2020): Dx'ed 11/12/20 Cardiac clearance 11/28/20 Acne vulgaris 01/03/2019 08/25/2023 Overview (01/04/2020): 01/02 - Rx'ed Retin A for facial acne ADHD 01/02/2019 Encounters Date Type Department Care Team Description 09/06/2024 1:56 PM EST - 09/06/2024 5:29 PM EST Hospital Encounter [facility] - Patient Ping 09/05/2024 Telephone [facility] [address] [place] [address] Anastasia Hanson LPN ER f/u 09/04/2024 12:58 PM EST - 09/04/2024 2:44 PM EST Hospital Encounter [facility] - Patient Ping 08/29/2024 Telephone [facility] [address] [place] [address] Hernan Dhillon, AUDIO VISUAL DIRECTOR f/u 08/26/2024 11:07 AM EST - 08/26/2024 12:31 PM EST Hospital Encounter [facility] - Patient Ping 08/12/2024 7:49 AM EST - 08/12/2024 9:32 AM EST Hospital Encounter [facility] - Patient Ping 08/10/2024 9:51 AM EST - 08/10/2024 1:57 PM EST Hospital Encounter [facility] - Patient Ping 08/10/2024 Telephone [facility] [address] [place] [address] Mojgan Cruz LPN ER follow up 07/29/2024 10:27 AM EST - 07/29/2024 1:21 PM EST Hospital Encounter [facility] - Patient Ping from Last 3 Months Immunizations Name Administration Dates Next Due COVID-19 Pfizer, hui-sucros e, 12+ years 06/04/2022 DTaP 07/05/2006,06/02/2006 DTaP / Hep B / IPV 2004,2004 DTaP 5 11/12/2008, 6,2004,08/06 H1N1 10/08/2009 HPV Vaccine 9 Valent 11/23/2017,05/04/2016 Hep A, ped/adol 03/27/2015,03/23/2014 Hep B, ped/adol 2004,2004 Hib (PRP-T) 09/07/2005, 5,2004,08/06 IPV 11/12/2008,2004 Influenza 06/14/2007 Influenza Split 04/27/2012,09/29/2011 Influenza, injectable, quadr ivalent, preservative free 06/04/2022,04/24/2021,10/05/2017,05/04,05/06/2015 Influenza, injectable, trivalent 06/14/2007,11/,06/02/2006 Influenza, intranasal, quadrivalent 05/24/2014,0 05/15/2013 Influenza, intranasal, trivalent 05/28/2010 MMR 11/12/2008,09/07/2005 Meningococcal Conj (Menactra) MCV4P 04/24/2021,0 11/23/2017 Pneumococcal Conjugate 09/07/2005,2004,2004,08/06 Tdap 11/23/2017 Varicella 11/12/2008,09/07/2005 Family History Medical History Relation Name Comments No Known Problems Brother ada Anxiety disorder Father jessica Depression Father jessica [place] Father jessica Migraines Father jessica No Known Problems Mother mali ADD / ADHD Other Asthma Other No Known Problems Sister david Relation Name Status Comments Brother ada Alive Father jessica Alive Father: Alive a nd well Mother mali Alive Mother: Alive a nd well Other Family history of Asthma, Family history of Migraines, Family history of ADD/ADHD Sister david Alive Social History Tobacco Use Types Packs/Day Years [...] Orientation Straight 01/04/2020 2: 49 PM EDT Last Filed Vital Signs Vital Sign Reading Time Taken Comments Blood Pressure 115/68 08/25/2023 11:01 AM EST Pulse 68 08/25/2023 11:01 AM EST Temperature 36.1 ??C (96.9 ??F) 08/25/2023 11:[address] Respiratory Rate - - Oxygen Saturation - - Inhaled Oxygen Concentration - - Weight 48.5 kg (107 lb) 08/25/2023 11:01 AM EST Height 163.2 cm (5' 4.25 ) 08/25/2023 11:[address] Body Mass Index 18.22 08/25/2023 11:01 AM EST Plan of Treatment Health Maintenance Due Date Last Done Comments HIV Screening 2004 Syphilis Screening (consider for higher risk patients) 2004 Men B Vaccine (1 of 2 - Standard) 2020 Hepatitis C Screening 2022 Influenza Vaccines (#1) 2024 06/04/20, 04/24/2021, 10/05/2017, Additional history exists COVID-19 Vaccine (2 - 2023-2 5 season) 2024 06/04/2022 Chlamydia and Gonorrhea Screening 08/16/2024 08/25/2023, 06/04/2022, 11/14/2021, Additional history exists DTaP,Tdap,and Td Vaccines (7 - Td or Tdap) 11/24/2027 11/23/2017, 11/12/2008, 07/05/2006, Additional history exists Hepatitis B Vaccines Completed 2004, 2004, 2004, Additional history exists HIB Vaccines Completed 09/07/2005, 11/15, 2004, Additional history exists Pneumococcal Vaccine Completed 09/07/2005, 2004, 2004, Additional history exists IPV Vaccines Completed 11/12/2008, 11/15, 2004, Additional history exists MMR Vaccines Completed 11/12/2008, 09/07/2005 Varicella Vaccines Completed 11/12/2008, 09/07/2005 Hepatitis A Vaccines Completed 03/27/2015, 03/23/20 14 HPV Vaccines Completed 11/23/2017, 05/04/2016 Meningococcal Vaccine Completed 04/24/2021, 018 Procedures * Due to [place] [employer] law, this organization might not be sharing sensitive test results. Procedure Name Priority Date/Time Associated Diagnosis Comments CHLAMYDIA AND GONORRHEA, AMPLIFIED Routine 08/25/2023 11:23 AM EST Screening for chlamydial disease from Last 3 Months or Most Recently Relevant to Health Maintenance Results * Due to [place] [employer] law, this organization might not be sharing sensitive test results. * Chlamydia and Gonorrhoea, Amplified (08/25/2023 11:23 AM EST) Chlamydia Trachomatis, DNA Probe NEGATIVE (NEG) [facility] Comment: No Chlamydia Trachomatis RNA detected in this patient's sample ? (REFERENCE RANGE/NORMAL VALUE: NOT DETECTED) ? Note: This test uses strike out machine operator- mediated amplification method to detect rRNA from C. Trachomatis URINE GC AMP PROBE NEGATIVE (NEG) [facility] Comment: No Neisseria Gonorrhoeae RNA detected in this patient's sample ? (REFERENCE RANGE/NORMAL VALUE: NOT DETECTED) ? NOTE: This test uses strike out machine operator-mediated amplification method to detect rRNA from N.Gonorrhoeae. A negative result does not preclude infection. In the case of a negative urine result, testing of an endocervical(female) or urethral (male) specimen is recommended if there is high clinical suspicion of infection. Due to very high sensitivity of Nucleic Acid Amplification Test, false positive results may occur. Therefore, specimen handling is extremely important. In patients in whom the disease is unlikely, additional sample for testing should be considered after an initial positive result. The performance characteristics of this test have not been evaluated in children. The Aptima Combo2 assay is not intended for the evaluation of suspected sexual abuse or for other medico-legal indications. The ordering provider should assess if the patient had consensual sex without risk of sexual abuse. Consult the [facility] if needed. Contact phone number . Therapeutic failure or success cannot be determined with the Aptima Combo2 assay since nucleic acid may persist following appropriate antimicrobial therapy. The Centers for Disease Control and Prevention (CDC) recommends confirmatory retesting using culture or a different nucleic acid amplification test when positive results occur, if indicated. Testing performed or reported by [facility], a Service of [facility], [address] [place] [address] [place] [address] Naeem Fernandez MD, Stakeholder Manager [facility]# [id number] Urine (Urine) 08/25/2023 11: 23 AM EST 08/25/2023 8:25 PM EST us Abad Varela MD LAB MICROBIOLOGY - GENERAL ORDER FAVIOLA Final Result [facility] from Last 3 Months or Most Recently Relevant to Health Maintenance Insurance [facility] NON PCC [facility] ACO Care Teams Expansion Joint Builder Relationship Specialty Start Date End Date Provider, MD Marcel [address] [place] [phone] PCP - General Pediatrics 02/04/24
--- OUTSIDE RECORDS SUMMARY | 2024-09-06 18:29 | XMS_ITS | Encounter Summary ---
Author Organization [facility] Address [address] [place] [address] Phone Care Team Providers Care Marketing Technology Coordinator Name Role Phone Provider, Marcel VIZCAINO Primary Care Provider [phone] Reason for Visit * Reason Comments ED Admission Encounter Details Date Type Department Care Team (Late st Contact Info) Description 08/10/2024 9:51 AM EST - 08/10/2024 1:57 PM [facility] Hospital Encounter [facility] - Patient Ping Social History Tobacco [...] on filedocumented in this encounter Care Teams Marketing Technology Coordinator Relationship Specialty Start Date End Date Provider, MD Marcel [address] [place] [address] PCP - General Pediatrics 02/04/24 documented as of this encounter
--- OUTSIDE RECORDS SUMMARY | 2024-09-06 18:29 | XMS_ITS | Encounter Summary ---
Author Organization [facility] Address [address] [place] [address] Phone Care Team Providers Care Crude Oil Treater Name Role Phone Provider, Marcel VIZCAINO Primary Care Provider [phone] Reason for Visit * Reason Onset Date Comments ER follow up 08/10/2024 Encounter Details Date Type Department Care Team (Late st Contact Info) Description 08/10/2024 Telephone [facility] [address] [place] [address] Mogjan Cruz LPN [address] [place] [address] ER follow up Social History Tobacco Use Types Packs/Day Years [...] Telephone Encounter - Vianca Ruiz MD - 08/10/2024 4:57 PM EST Noted; thank you * Telephone Encounter - Mojgan Cruz LPN - 08/10/2024 4:37 PM EST Call placed to pt regarding [facility] [place] for puncture wound on R foot. Left VM for pt to call back with an update. [facility] [place] printed and in triage for medical records to scan into chart. Pt was DN pt and has not picked new pcp yet. documented in this encounter Plan of Treatment Not on file documented as of this encounter Visit Diagnoses Not on filedocumented in this encounter Care Teams Crude Oil Treater Relationship Specialty Start Date End Date Provider, MD Marcel [address] [place] [address] PCP - General Pediatrics 02/04/24 documented as of this encounter
--- OUTSIDE RECORDS SUMMARY | 2024-09-06 18:29 | XMS_ITS | Encounter Summary ---
Author Organization [facility] Address [address] [place] [address] Phone Care Team Providers Care Bank Advisor Name Role Phone ProviderMarcel MD Primary Care Provider [phone] Encounter Details Date Type Department Care Team (Late st Contact Info) Description 12/25/2009 Documentation [facility] Family Medicine [address] [place] [address] Family Medicine, Physician [address] [place], [place] [address] Social History Tobacco Use Types Packs/Day Years [...] on filedocumented in this encounter Care Teams Bank Advisor Relationship Specialty Start Date End Date Provider, MD Marcel [address] [place] [address] PCP - General Pediatrics 02/04/24 documented as of this encounter
== END 2024-09-06 17:29 | disposition home or self-care (01) ==
PROVIDERS: Registered Nurse Emergency; Emergency Provider Emergency Medicine Emergency Medical Services
DX: J02.9 Acute pharyngitis, unspecified (principal); B34.9 Viral infection, unspecified; R11.0 Nausea; M79.10 Myalgia, unspecified site; Z03.818 Encounter for observation for suspected exposure to other biological agents ruled out
CPT/HCPCS: 0241U; 87651; 99282; 99283

== ENCOUNTER 2024-09-28 06:52 | Emergency (ER) | payer OTHER, SELFPAY ==
[2024-09-28 07:09] VITALS: BP 112/63; PULSE 59; RESP 18; TEMP 36.9; O2SAT 98; BMI 18.9
--- NOTE | 2024-09-28 09:18 | ED.GENADULT ---
HPI - General Adult General Chief complaint: Headache Stated complaint: Migraine for 3 days Time Seen by Provider: 09/28/24 09:18 Source: patient Mode of arrival: ambulatory Limitations: no limitations History of Present Illness ED Provider: Rosa Hollis PA-C HPI narrative: Patient is a 19 year old assigned male at with a history of testicular torsion presenting to the emergency department today with a migraine headache. Patient states that over the last 3 days he has had an intermittent headache that he believes is from his loud work environment. Patient denies any dizziness, lightheadedness, abdominal pain, nausea, vomiting, fever, chills, blurry vision, double vision, loss of vision, chest pain, difficulty breathing, shortness of breath, back pain, night sweats, pain with urination, increased urinary frequency, increased urinary urgency, blood in his urine or stool, syncope or a near syncopal episode, recent trauma or falls, bowel incontinence, bladder incontinence, or any other complaints at this time. Onset (ago): day(s) (3) Location: head Relieving factors: none Exacerbating factors: none Associated symptoms: denies other symptoms Treatments prior to arrival: none Related Data Previous Rx's ?Medication ?Instructions ?Recorded levofloxacin 500 mg tablet 500 mg PO DAILY #9 tabs 11/10/21 naproxen 500 mg tablet (Naprosyn) 500 mg PO BID #10 tabs 11/10/21 ibuprofen 600 mg tablet 600 mg PO Q6H PRN pain #30 tabs 05/11/24 lidocaine 4 % topical patch 1 patch topical DAILY PRN pain #30 05/11/24 (AsperFlex (lidocaine)) ea methocarbamol 750 mg tablet 750 mg PO Q8H PRN muscle spasm 3 05/11/24 days #9 tabs cephalexin 500 mg capsule 500 mg PO QID 5 days #20 caps 08/10/24 Allergies Allergy/AdvReac Type Severity Reaction Status Date / Time No Known Allergies Allergy Verified 09/28/24 07:10 Review of Systems Constitutional: Constitutional: Reports no additional constitutional complaints, Denies chills, Denies fever(s), Reports headache(s) and Denies night sweats Eyes: Eyes: Reports no additional eye complaints, Denies blurry vision, Denies change in vision, Denies diplopia, Denies eye discharge, Denies loss of vision and Denies eye pain ENT: Denies dizziness and Reports headache(s) Cardiovascular: Cardiovascular: Reports no additional cardiovascular complaints, Denies chest pain, Denies lightheadedness, Denies Loss of Consciousness and Denies dyspnea Respiratory: Respiratory: Reports no additional respiratory complaints and Denies dyspnea Gastrointestinal: Gastrointestinal: Reports no additional gastrointestinal complaints, Denies abdominal pain, Denies melena, Denies hematochezia, Denies change in bowel habits and Denies change in stool character Genitourinary: Genitourinary: Reports no additional male genitourinary complaints, Denies hematuria, Denies oliguria, Denies difficulty urinating, Denies dysuria, Denies urinary frequency, Denies urinary hesitancy, Denies urinary incontinence and Denies urinary urgency Musculoskeletal: Musculoskeletal: Reports no additional musculoskeletal complaints, Denies numbness and Denies tingling Neurologic: Denies dizziness, Reports headache(s), Denies loss of vision, Denies numbness and Denies tingling Psychiatric: Psychiatric: Reports no additional psychiatric complaints Endocrine: Endocrine: Reports no additional endocrine complaints Hematologic/Lymphatic: Hematologic/Lymphatic: Reports no additional hematologic/lymphatic complaints Allergic/Immunologic: Allergic/Immunologic: Reports no additional allergic/immunologic complaints PMFSH Past Medical History Attestation statement: The following information was validated with the patient. Source: old records reviewed and nursing notes reviewed Medical History ADHD Social History Social History Alcohol intake: never Advance Directives: No Advance Directives Information Provided: No Do you have a plan to hurt others: No Plan Physical Exam ED Vital Signs: Vital Signs - 24 hr 09/28/24 07:09 09/28/24 09:25 09/28/24 10:35 Temperature 98.4 F 97.8 F 97.8 F Pulse Rate 59 56 56 Respiratory Rate 18 18 18 Blood Pressure 112/63 113/72 113/72 Pulse Oximetry 98 98 98 Oxygen Delivery Method Room Air Room Air Room Air BMI result Body Mass Index 18.9 Const General: cooperative, no acute distress, alert and awake Nutritional Appearance: well nourished Orientation/consciousness: patient oriented x3 Limitations: no limitations HENMT Head: Yes normal to inspection and Yes atraumatic Ears: hearing grossly normal bilaterally and external ears normal General nose exam: Normal external nose present, no nasal discharge noted and no epistaxis Face and sinus: Yes normal facial exam, No abrasion and No laceration Mouth: Normal oral and palatal mucosa present, no drooling and no muffled voice Eyes General: appearance normal, both eyes and all related structures Periorbital: periorbital findings normal Eyelids: Yes eyelids normal Conjunctivae: conjunctivae normal Pupils: Equal, round and reactive pupils present EOM: EOMs intact bilaterally Neck Neck: Yes normal visual inspection, Yes full ROM and Yes no lymphadenopathy Chest Chest palpation & inspection: normal inspection of the chest Resp Effort & Inspection: normal respiratory effort and able to speak in complete sentences GI Inspection: Yes normal to inspection Neuro General: patient oriented x3, moves all extremities and CN's II-XI intact bilaterally Cranial nerves: Yes Equal, round and reactive pupils present Cognition (Neuro): normal cognition Extrem General: Yes normal to inspection, Yes full ROM and Yes capillary refill normal Psych Appearance: grossly normal Mental Status: mental status grossly normal Affect: normal affect Attitude: cooperative Thought process: Normal thought process present Thought content: Normal thought content present Insight: Good insight present (Psych) Medications Administered Discontinued Medications Generic Name Dose Route Start Last Admin Trade Name Freq PRN Reason Stop Dose Admin Ketorolac Tromethamine 15 mg 09/28/24 09:24 09/28/24 09:31 Ketorolac Tromethamine 15 Mg/Ml Vial IM 09/28/24 09:25 Not Given ONCE ONE Naproxen 500 mg 09/28/24 09:35 09/28/24 09:40 Naproxen 500 Mg Tablet PO 09/28/24 09:36 500 mg ONCE ONE Administration Medical Decision Making Medical Decision Making [facility] Narrative: Patient is a 19 year old assigned male at with a history of testicular torsion presenting to the emergency department today with a migraine headache. Patient's physical exam was unremarkable. Patient's COVID-19, influenza, and RSV testing was negative. I explained my physical exam findings as well as all test results to the patient. I answered all questions asked by the patient. I stressed the importance of the patient taking his medication as directed (either prescribed or as the over the counter packaging recommends). I stressed the importance of the patient following up with his primary care provider. I stressed the importance of the patient returning to the emergency department immediately if his symptoms were to worsen or if he were to develop any dizziness, shortness of breath, difficulty breathing, chest pain, blurry vision, loss of vision, nausea, vomiting, abdominal pain, fever, chills, back pain, or any other complaints. Patient verbalized agreement and understanding with this treatment plan and discharge. Differential Diagnosis Differential Diagnoses: The differential diagnosis associated with the presentation includes Influenza RSV Headache Admission/Observation Consideration of admission/observation: Escalation of care including admission/observation considered Patient would have been admitted to the hospital had his work up had any findings where hospital admission was appropriate and his clinical presentation warranted hospital admission. Lab Data MDM Lab Attestation statement: I reviewed the patient's lab results. My interpretation of these studies and their corresponding values is that they are grossly normal. Labs: Lab Results 09/28/24 Range/Units 09:29 Influenza Type A (PCR) NEGATIVE (Negative) Influenza Type B (PCR) NEGATIVE (Negative) RSV RNA Qual (PCR) NEGATIVE (Negative) SARS-CoV-2 RNA (RT-PCR) NEGATIVE (Negative) Tests considered The following testing was considered but not selected: I considered obtaining a CT scan of the head and c-spine as well as obtaining an ESR, CBC, CMP, and CRP however, the patient's current clinical presentation did not warrant this. I discussed this with the patient who verbalized understanding and agreement. Discharge Plan Discharge Clinical Impression: Headache Patient Disposition: Home, Self-Care Instructions: Acute Headache (DC) Additional Instructions: Continue taking tylenol and ibuprofen over the counter for your headache. Follow up with your primary care provider. Return to the emergency department immediately if your symptoms worsen or if you develop any dizziness, shortness of breath, difficulty breathing, chest pain, blurry vision, loss of vision, nausea, vomiting, abdominal pain, fever, chills, back pain, or any other complaints. Prescriptions: No Action naproxen [Naprosyn] 500 mg tablet 500 mg PO BID Qty: 10 0RF levofloxacin 500 mg tablet 500 mg PO DAILY Qty: 9 0RF cephalexin 500 mg capsule 500 mg PO QID 5 Days Qty: 20 0RF ibuprofen 600 mg tablet 600 mg PO Q6H PRN (Reason: pain) Qty: 30 0RF methocarbamol 750 mg tablet 750 mg PO Q8H PRN (Reason: muscle spasm) 3 Days Qty: 9 0RF lidocaine [AsperFlex (lidocaine)] 4 % adhesive patch,medicated 1 patch topical DAILY PRN (Reason: pain) Qty: 30 0RF Referrals: [facility] Family Medicine [Provider Group] (Call to establish and follow up with a primary care provider. If you already have a primary care provider, please follow up with them.) [facility] Primary Care, [place] [Provider Group] (Call to establish and follow up with a primary care provider. If you already have a primary care provider, please follow up with them.) [facility] Primary Care,[place] [Provider Group] (Call to establish and follow up with a primary care provider. If you already have a primary care provider, please follow up with them.) [facility] [Provider Group] (Call to establish and follow up with a primary care provider. If you already have a primary care provider, please follow up with them.) Stand Alone Forms: Work/School Release Interventions: ED Discharge Assessment Last Done: 09/28/24 10:35 Discharge Date/Time: 09/28/24 10:35 Print Language: Faroese
[2024-09-28 09:25] VITALS: BP 113/72; PULSE 56; RESP 18; TEMP 36.6; O2SAT 98
[2024-09-28] MEDS: NaPROXEN 500 MG TABLET PO (09:40)
--- OUTSIDE RECORDS SUMMARY | 2024-09-28 09:44 | XMS_ITS | Encounter Summary ---
Author Organization [facility] Address [address] [place] [address] Phone Care Team Providers Care Jumpbasting Facing Baster Name Role Phone Provider, Marcel VIZCAINO Primary Care Provider [phone] Reason for Visit * Reason Comments ED Admission Encounter Details Date Type Department Care Team (Late st Contact Info) Description 09/04/2024 12:58 PM EST - 09/04/2024 2:44 PM [facility] Hospital Encounter [facility] - Patient Ping Social History Tobacco Use [...] on filedocumented in this encounter Care Teams Jumpbasting Facing Baster Relationship Specialty Start Date End Date Provider, MD Marcel [address] [place] [address] PCP - General Pediatrics 02/04/24 documented as of this encounter
--- OUTSIDE RECORDS SUMMARY | 2024-09-28 09:44 | XMS_ITS | Clinical Summary ---
Author Organization [facility] Address [address] [place] [address] Phone Care Team Providers Care Remittance Clerk Name Role Phone Provider, Marcel VIZCAINO Primary Care Provider [phone] Allergies No known active allergies Medications mometasone [...] Encounters Date Type Department Care Team Description 09/28/2024 6:52 AM EST - Present Hospital Encounter [facility] - Patient Ping 09/07/2024 Telephone [facility] [address] [place] [address] Vianca Ruiz MD ER f/u; [facility] outreach letter 09/06/2024 1:56 PM EST - 09/06/2024 5:29 PM EST Hospital Encounter [facility] - Patient Ping 09/05/2024 Telephone [facility] [address] [place] [address] Anastasia Hanson LPN ER f/u 09/04/2024 12:58 PM EST - 09/04/2024 2:44 PM EST Hospital Encounter [facility] - Patient Ping 08/29/2024 Telephone [facility] [address] [place] [address] Hernan Dhillon, SALES CENTER MANAGER f/u 08/26/2024 11:07 AM EST - 08/26/2024 12:31 PM EST Hospital Encounter [facility] - Patient Ping 08/12/2024 7:49 AM EST - 08/12/2024 9:32 AM EST Hospital Encounter [facility] - Patient Ping 08/10/2024 9:51 AM EST - 08/10/2024 1:57 PM EST Hospital Encounter [facility] - Patient Ping 08/10/2024 Telephone [facility] [address] [place] [address] Mojgan Cruz LPN ER follow up 07/29/2024 10:27 AM EST - 07/29/2024 1:21 PM EST Hospital Encounter [facility] - Patient Ping from Last 3 Months Immunizations Immunization Administration Dates Next Due COVID-19 Pfizer, hui-sucros e, 12+ years 06/04/2022 DTaP 07/05/2006,06/02/2006 DTaP / Hep B / IPV 2004,2004 DTaP 5 11/12/2008, 6,2004,08/06 H1N1 10/08/2009 HPV Vaccine 9 Valent 11/23/2017,05/04/2016 Hep A, ped/adol 03/27/2015,03/23/2014 Hep B, ped/adol 2004,2004 Hib (PRP-T) 09/07/2005, 5,2004,08/06 IPV 11/12/2008,2004 Influenza 06/14/2007 Influenza Split 04/27/2012,09/29/2011 Influenza, injectable, quadr ivalent, preservative free 06/04/2022,04/24/2021,10/05/2017,05/04,05/06/2015 Influenza, injectable, trivalent 06/14/2007,11/2 ,06/02/2006 Influenza, intranasal, quadrivalent 05/24/2014,0 05/15/2013 Influenza, intranasal, [...] Meningococcal Vaccine Completed 04/24/2021, 018 Procedures * The patient is currently admitted. The information in this section might not be complete until the patient is discharged.Due to [place] [employer] law, this organization might not be sharing sensitive test results. Procedure Name Priority Date/Time Associated Diagnosis Comments CHLAMYDIA AND GONORRHEA, AMPLIFIED Routine 08/25/2023 11:23 AM EST Screening for chlamydial disease from Last 3 Months or Most Recently Relevant to Health Maintenance Results * Due to [facility] law, this organization might not be sharing sensitive test results. * Chlamydia and Gonorrhoea, Amplified (08/25/2023 11:23 AM EST) Chlamydia Trachomatis, DNA Probe NEGATIVE (NEG) [facility] Comment: No Chlamydia Trachomatis RNA detected in this patient's sample ? (REFERENCE RANGE/NORMAL VALUE: NOT DETECTED) ? Note: This test uses pharmacy clinical specialist- mediated amplification method to detect rRNA from C. Trachomatis URINE GC AMP PROBE NEGATIVE (NEG) [facility] Comment: No Neisseria Gonorrhoeae RNA detected in this patient's sample ? (REFERENCE RANGE/NORMAL VALUE: NOT DETECTED) ? NOTE: This test uses pharmacy clinical specialist-mediated amplification method to detect rRNA from N.Gonorrhoeae. [...] without risk of sexual abuse. Consult the [facility] if needed. Contact phone number . Therapeutic failure or success cannot be determined with the Aptima Combo2 assay since nucleic acid may persist following appropriate antimicrobial therapy. The Centers for Disease Control and Prevention (CDC) recommends confirmatory retesting using culture or a different nucleic acid amplification test when positive results occur, if indicated. Testing performed or reported by [facility], a Service of [facility], [address] [place] [id number] Naeem Fernandez MD, Equipment Operator/Laborer/Supervisor [facility]# [id number] Urine (Urine) 08/25/2023 11: 23 AM EST 08/25/2023 8:25 PM EST Abad Varela MD LAB MICROBIOLOGY - GENERAL ORDER FAVIOLA Final Result [facility] from Last 3 Months or Most Recently Relevant to Health Maintenance Insurance [facility] NON PCC [facility] Care Teams Remittance Clerk Relationship Specialty Start Date End Date Provider, MD Marcel [address] [place] [phone] PCP - General Pediatrics 02/04/24
--- OUTSIDE RECORDS SUMMARY | 2024-09-28 09:44 | XMS_ITS | Encounter Summary ---
Author Organization [facility] Address [address] [place] [address] Phone Care Team Providers Care School Bus Driver Name Role Phone ProviderMarcel MD Primary Care Provider [phone] Encounter Details Date Type Department Care Team (Late st Contact Info) Description 01/08/2016 Documentation [facility] [place] [facility] [address] [place] [address] Family Medicine, Physician [address] [place] [address] Social History Tobacco Use Types Packs/Day Years [...] on filedocumented in this encounter Care Teams School Bus Driver Relationship Specialty Start Date End Date Provider, MD Marcel [address] [place] [phone] PCP - General Pediatrics 02/04/24 documented as of this encounter
--- OUTSIDE RECORDS SUMMARY | 2024-09-28 09:44 | XMS_ITS | Encounter Summary ---
Author Organization [facility] Address [address] [place] [address] Phone Care Team Providers Care Piping Design Specialist Name Role Phone Provider, Marcel VIZCAINO Primary Care Provider [phone] Reason for Visit * Reason Comments ED Admission Encounter Details Date Type Department Care Team (Late st Contact Info) Description 09/28/2024 6:52 AM EST - Present Hospital Encounter [facility] - Patient Ping Social History Tobacco Use [...] on filedocumented in this encounter Care Teams Piping Design Specialist Relationship Specialty Start Date End Date Provider, MD Marcel [address] [place] [phone] PCP - General Pediatrics 02/04/24 documented as of this encounter
--- OUTSIDE RECORDS SUMMARY | 2024-09-28 09:44 | XMS_ITS | Encounter Summary ---
Author Organization [facility] Address [address] [place] [address] Phone Care Team Providers Care Assistant Quality Manager Name Role Phone ProviderMarcel MD Primary Care Provider [phone] Encounter Details Date Type Department Care Team (Late st Contact Info) Description 09/20/2014 Documentation [facility] [place] [address] [place] [address] Family Medicine, Physician [address] [place] [address] Social History Tobacco Use Types Packs/Day Years [...] on filedocumented in this encounter Care Teams Assistant Quality Manager Relationship Specialty Start Date End Date Provider, MD Marcel [address] [place] [phone] PCP - General Pediatrics 02/04/24 documented as of this encounter
--- OUTSIDE RECORDS SUMMARY | 2024-09-28 09:44 | XMS_ITS | Encounter Summary ---
Author Organization [facility] Address [address] [place] [address] Phone Care Team Providers Care Store Team Leader Name Role Phone ProviderMarcel MD Primary Care Provider [phone] Encounter Details Date Type Department Care Team (Late st Contact Info) Description 07/03/2010 Documentation [facility] [place] [address] [place] [address] Family Medicine, Physician [address] [place], [place] [id number] Social History Tobacco Use Types Packs/Day Years [...] on filedocumented in this encounter Care Teams Store Team Leader Relationship Specialty Start Date End Date Provider, MD Marcel [address] [place] [phone] PCP - General Pediatrics 02/04/24 documented as of this encounter
--- OUTSIDE RECORDS SUMMARY | 2024-09-28 09:44 | XMS_ITS | Encounter Summary ---
Author Organization [facility] Address [address] [place] [address] Phone Care Team Providers Care Paint Sprayer Sandblaster Name Role Phone Provider, Marcel VIZCAINO Primary Care Provider [phone] Reason for Visit * Reason Onset Date Comments ER f/u 08/29/2024 Encounter Details Date Type Department Care Team (Late st Contact Info) Description 08/29/2024 Telephone [facility] [address] [place] [address] Hernan Dhillon RN [address] [place] [address] ER f/u Social History Tobacco Use Types [...] placed to pt re; ER visit at [facility] on 08/26/24. Pt went d/t needing a negative covid test to return to work. Pt did not currently have any symptoms. Pt states he is doing well w/ no concerns at this time. [facility] ER notes printed for scanning. documented in this encounter Plan of Treatment Not on file documented as of this encounter Visit Diagnoses Not on filedocumented in this encounter Care Teams Paint Sprayer Sandblaster Relationship Specialty Start Date End Date Provider, MD Marcel [address] [place] [phone] PCP - General Pediatrics 02/04/24 documented as of this encounter
--- OUTSIDE RECORDS SUMMARY | 2024-09-28 09:44 | XMS_ITS | Encounter Summary ---
Author Organization [facility] Address [address] [place] [address] Phone Care Team Providers Care President Ceo & Founder Name Role Phone Provider, Marcel VIZCAINO Primary Care Provider [phone] Reason for Visit * Reason Onset Date Comments ER f/u 09/07/2024 [facility] outreach letter 09/07/2024 Encounter Details Date Type Department Care Team (Late st Contact Info) Description 09/07/2024 Telephone [facility] [address] [place] [address] Vianca Ruiz MD [address] [place] [address] ER f/u; [facility] outreach letter Social History Tobacco Use Types Packs/Day Years [...] encounter Miscellaneous Notes * Telephone Encounter - Mounika Frey - 09/07/2024 8:57 AM EST I have already reached out to patient and have left a message for him to return my call. Extension left [phone]. * Telephone Encounter - Vianca Ruiz MD - 09/07/2024 8:53 AM EST Noted; thank you for trying to reach him [facility]-please try him again, and if he still doesn't answer, please send him a letter in the mail that it is imperative that he contact us regarding a visit at our office and that he needs to call us before going to the ER if it is not an emergent situation. Thank you * Telephone Encounter - Anastasia Hanson LPN - 09/07/2024 8:44 AM EST Call placed to pt again regarding another ER visit to [facility] on 09/06 for cough, ST and nausea. Per ER notes pt wanted covid test. Tests for covid, flu and RSV negative. Left message to call office ER notes printed and in triage for medical records to scan into chart Now 8th visit to ER since 04/2024 documented in this encounter Plan of Treatment Not on file documented as of this encounter Visit Diagnoses Not on filedocumented in this encounter Care Teams President Ceo & Founder Relationship Specialty Start Date End Date Provider, MD Marcel [address] [place] [phone] PCP - General Pediatrics 02/04/24 documented as of this encounter
--- OUTSIDE RECORDS SUMMARY | 2024-09-28 09:44 | XMS_ITS | Encounter Summary ---
Author Organization [facility] Address [address] [place] [address] Phone Care Team Providers Care Senior Maintenance Mechanic Name Role Phone Provider, Marcel VIZCAINO Primary Care Provider [phone] Reason for Visit * Reason Onset Date Comments ER f/u 09/05/2024 Encounter Details Date Type Department Care Team (Late st Contact Info) Description 09/05/2024 Telephone [facility] [place] [address] [place] [address] Anastasia Hanson LPN [address] [place] [address] ER f/u Social History Tobacco Use Types [...] EST Call placed regarding ER visit to [facility] on 09/[address] [facility] [...] on filedocumented in this encounter Care Teams Senior Maintenance Mechanic Relationship Specialty Start Date End Date Provider, MD Marcel [address] [place] [phone] PCP - General Pediatrics 02/04/24 documented as of this encounter
--- OUTSIDE RECORDS SUMMARY | 2024-09-28 09:44 | XMS_ITS | Encounter Summary ---
Author Organization [facility] Address [address] [place] [address] Phone Care Team Providers Care Rn Gynecology Name Role Phone ProviderMarcel MD Primary Care Provider [phone] Encounter Details Date Type Department Care Team (Late st Contact Info) Description 12/25/2009 Documentation [facility] [place] Family Medicine [address] [place] [address] Family Medicine, Physician [address] [place], [place] [address] Social History Tobacco Use Types Packs/Day Years [...] on filedocumented in this encounter Care Teams Rn Gynecology Relationship Specialty Start Date End Date Provider, MD Marcel [address] [place] [address] PCP - General Pediatrics 02/04/24 documented as of this encounter
--- OUTSIDE RECORDS SUMMARY | 2024-09-28 09:44 | XMS_ITS | Encounter Summary ---
Author Organization [facility] Address [address] [place] [address] Phone Care Team Providers Care Concrete Buster Operator Name Role Phone Provider, Marcel VIZCAINO Primary Care Provider [phone] Reason for Visit * Reason Comments ED Admission Encounter Details Date Type Department Care Team (Late st Contact Info) Description 09/06/2024 1:56 PM EST - 09/06/2024 5:29 PM [facility] Hospital Encounter [facility] - Patient Ping Social History Tobacco [...] on filedocumented in this encounter Care Teams Concrete Buster Operator Relationship Specialty Start Date End Date Provider, MD Marcel [address] [place] [phone] PCP - General Pediatrics 02/04/24 documented as of this encounter
--- OUTSIDE RECORDS SUMMARY | 2024-09-28 09:44 | XMS_ITS | Encounter Summary ---
Author Organization [facility] Address [address] [place] [address] Phone Care Team Providers Care Airborne Operations Manager Name Role Phone ProviderMarcel MD Primary Care Provider [phone] Encounter Details Date Type Department Care Team (Late st Contact Info) Description 01/08/2016 Documentation [facility] [place] Family Medicine [address] [place] [address] Family Medicine, Physician [address] [place] [address] Social History Tobacco Use Types Packs/Day Years [...] on filedocumented in this encounter Care Teams Airborne Operations Manager Relationship Specialty Start Date End Date Provider, MD Marcel [address] [place] [address] PCP - General Pediatrics 02/04/24 documented as of this encounter
--- OUTSIDE RECORDS SUMMARY | 2024-09-28 09:44 | XMS_ITS | Encounter Summary ---
Author Organization [facility] Address [address] [place] [address] Phone Care Team Providers Care Book Reviewer Name Role Phone Provider, Marcel VIZCAINO Primary Care Provider [phone] Encounter Details Date Type Department Care Team (Late st Contact Info) Description 04/01/2017 Conversion Encounter [place] [facility] [place] [address] [place], [place] [id number] Social History Tobacco Use Types Packs/Day Years [...] on filedocumented in this encounter Care Teams Book Reviewer Relationship Specialty Start Date End Date Provider, MD Marcel [address] [place] [address] PCP - General Pediatrics 02/04/24 documented as of this encounter
--- OUTSIDE RECORDS SUMMARY | 2024-09-28 09:44 | XMS_ITS | Encounter Summary ---
Author Organization [facility] Address [address] [place] [address] Phone Care Team Providers Care Beef Cattle Specialist Name Role Phone ProviderMacrel MD Primary Care Provider [phone] Encounter Details Date Type Department Care Team (Late st Contact Info) Description 01/09/2016 Documentation [facility] [place] Family Medicine [address] [place] [address] Family Medicine, Physician [address] [place], [place] [address] Social History Tobacco Use Types Packs/Day Years [...] on filedocumented in this encounter Care Teams Beef Cattle Specialist Relationship Specialty Start Date End Date Provider, MD Marcel [address] [place] [address] PCP - General Pediatrics 02/04/24 documented as of this encounter
[2024-09-28 10:21] LABS: Influenza A PCR NEGATIVE (Negative); Influenza B PCR NEGATIVE (Negative); Resp Syncy Virus RNA Qual PCR NEGATIVE (Negative); SARS COV2 PCR INHOUSE NEGATIVE (Negative)
[2024-09-28 10:35] VITALS: BP 113/72; PULSE 56; RESP 18; TEMP 36.6; O2SAT 98
== END 2024-09-28 10:35 | disposition home or self-care (01) ==
PROVIDERS: Physician Assistant Medical; Emergency Provider Emergency Medicine Emergency Medical Services
DX: G43.909 Migraine, unspecified, not intractable, without status migrainosus (principal); Z03.818 Encounter for observation for suspected exposure to other biological agents ruled out
CPT/HCPCS: 0241U; 99283

== ENCOUNTER 2024-10-14 08:08 | Emergency (ER) | payer OTHER, SELFPAY ==
[2024-10-14 08:24] VITALS: BP 116/65; PULSE 63; RESP 16; TEMP 36.6; O2SAT 98; BMI 18.0
--- OUTSIDE RECORDS SUMMARY | 2024-10-14 11:21 | XMS_ITS | Clinical Summary ---
Author Organization [facility] Address [address] [place] [address] Phone Care Team Providers Care Kohinoor Operator Name Role Phone Provider, Marcel VIZCAINO Primary Care Provider [phone] Allergies No known active allergies Medications mometasone [...] Encounters Date Type Department Care Team Description 10/14/2024 8:08 AM EST - Present Hospital Encounter [facility] - Patient Ping 09/29/2024 Telephone [facility] [place] [address] [place] [address] Wayne Patino LPN ER Visit 09/28/2024 6:52 AM EST - 09/28/2024 10:35 AM EST Hospital Encounter [facility] - Patient Ping 09/07/2024 Telephone [facility] [place] [address] [place] [address] Vianca Ruiz MD ER f/u; [facility] outreach letter 09/06/2024 1:56 PM EST - 09/06/2024 5:29 PM EST Hospital Encounter [facility] - Patient Ping 09/05/2024 Telephone [facility] [facility] [place] [address] [place] [address] Anastasia Hanson LPN ER f/u 09/04/2024 12:58 PM EST - 09/04/2024 2:44 PM EST Hospital Encounter [facility] - Patient Ping 08/29/2024 Telephone [place] [facility] [address] [place] [address] Hernan Dhillon, WHARF WORKER f/u 08/26/2024 11:07 AM EST - 08/26/2024 12:31 PM EST Hospital Encounter [facility] - Patient Ping 08/12/2024 7:49 AM EST - 08/12/2024 9:32 AM EST Hospital Encounter [facility] - Patient Ping 08/10/2024 9:51 AM EST - 08/10/2024 1:57 PM EST Hospital Encounter [facility] - Patient Ping 08/10/2024 Telephone [facility] [address] [place] [address] Mojgan Cruz LPN ER follow up 07/29/2024 10:27 AM EST - 07/29/2024 1:21 PM EST Hospital Encounter [facility] - Patient Ping from Last 3 [...] ivalent, preservative free 06/04/2022,04/24/2021,10/05/2017,05/04,05/06/2015 Influenza, injectable, trivalent 06/14/2007,06/17,06/02/2006 Influenza, intranasal, quadrivalent 05/24/2014,0 05/15/2013 Influenza, intranasal, [...] In the last 12 months, did y sissy or your family ever eat less than [...] C Screening 2022 Influenza Vaccines (#1) 2024 06/04/20 22, 04/24/2021, 10/05/2017, Additional history exists COVID-19 Vaccine (2 2023-2 5 season) 2024 06/04/2022 Chlamydia and [...] complete until the patient is discharged.Due to [place] [employer] law, this organization might not be sharing sensitive test results. Procedure Name Priority Date/Time Associated Diagnosis Comments CHLAMYDIA AND GONORRHEA, AMPLIFIED Routine 08/25/2023 11:23 AM EST Screening for chlamydial disease from Last 3 Months or Most Recently Relevant to Health Maintenance Results * Due to [place] [employer] law, this organization might not be sharing sensitive test results. * Chlamydia and Gonorrhoea, Amplified (08/25/2023 11:23 AM EST) Chlamydia Trachomatis, DNA Probe NEGATIVE (NEG) [facility] Comment: No Chlamydia Trachomatis RNA detected in this patient's sample ? (REFERENCE RANGE/NORMAL VALUE: NOT DETECTED) ? Note: This test uses circulation librarian- mediated amplification method to detect rRNA from C. Trachomatis URINE GC AMP PROBE NEGATIVE (NEG) [facility] Comment: No Neisseria Gonorrhoeae RNA detected in this patient's sample ? (REFERENCE RANGE/NORMAL VALUE: NOT DETECTED) ? NOTE: This test uses circulation librarian-mediated amplification method to detect rRNA from N.Gonorrhoeae. [...] without risk of sexual abuse. Consult the [facility] if needed. Contact phone number . Therapeutic failure or success cannot be determined with the Aptima Combo2 assay since nucleic acid may persist following appropriate antimicrobial therapy. The Centers for Disease Control and Prevention (CDC) recommends confirmatory retesting using culture or a different nucleic acid amplification test when positive results occur, if indicated. Testing performed or reported by [facility], a Service of [facility], [address] [place] [id number] Naeem Fernandez MD, Retail Product Demo Specialist [facility]# [id number] Urine (Urine) 08/25/2023 11: 23 AM EST 08/25/2023 8:25 PM EST us Abad Varela MD LAB MICROBIOLOGY - GENERAL ORDER FAVIOLA Final Result [facility] from Last 3 Months or Most Recently Relevant to Health Maintenance Insurance [facility] NON PCC [facility] ACO Care Teams Kohinoor Operator Relationship Specialty Start Date End Date Provider, MD Marcel [address] [place] [phone] PCP - General Pediatrics 02/04/24
--- OUTSIDE RECORDS SUMMARY | 2024-10-14 11:21 | XMS_ITS | Encounter Summary ---
Author Organization [facility] Address [address] [place] [address] Phone Care Team Providers Care Billiard Table Repairer Name Role Phone Provider, Marcel VIZCAINO Primary Care Provider [phone] Encounter Details Date Type Department Care Team (Late st Contact Info) Description 04/01/2017 Conversion Encounter [place] [facility] [place] [address] [place], [place] [phone] Social History Tobacco Use Types Packs/Day Years [...] on filedocumented in this encounter Care Teams Billiard Table Repairer Relationship Specialty Start Date End Date Provider, MD Marcel [address] [place] [phone] PCP - General Pediatrics 02/04/24 documented as of this encounter
--- OUTSIDE RECORDS SUMMARY | 2024-10-14 11:21 | XMS_ITS | Encounter Summary ---
Author Organization [facility] Address [address] [place] [address] Phone Care Team Providers Care Steel Construction Worker Name Role Phone ProviderMarcel MD Primary Care Provider [phone] Encounter Details Date Type Department Care Team (Late st Contact Info) Description 09/20/2014 Documentation [facility] Family Medicine [address] [place] [address] Family Medicine, Physician [address] [place] [address] Social History Tobacco Use Types Packs/Day Years [...] on filedocumented in this encounter Care Teams Steel Construction Worker Relationship Specialty Start Date End Date Provider, MD Marcel [address] [place] [phone] PCP - General Pediatrics 02/04/24 documented as of this encounter
--- OUTSIDE RECORDS SUMMARY | 2024-10-14 11:21 | XMS_ITS | Encounter Summary ---
Author Organization [facility] Address [address] [place] [address] Phone Care Team Providers Care Manager Winter Name Role Phone Provider, Marcel VIZCAINO Primary Care Provider [phone] Reason for Visit * Reason Comments ED Admission Encounter Details Date Type Department Care Team (Late st Contact Info) Description 10/14/2024 8:08 AM EST - Present Hospital Encounter [facility] - Patient Ping Social History Tobacco Use [...] on filedocumented in this encounter Care Teams Manager Winter Relationship Specialty Start Date End Date Provider, MD Marcel [address] [place] [phone] PCP - General Pediatrics 02/04/24 documented as of this encounter
--- OUTSIDE RECORDS SUMMARY | 2024-10-14 11:21 | XMS_ITS | Encounter Summary ---
Author Organization [facility] Address [address] [place] [address] Phone Care Team Providers Care Gem Setter Name Role Phone Provider, Marcel VIZCAINO Primary Care Provider [phone] Reason for Visit * Reason Onset Date Comments ER Visit 09/29/2024 Encounter Details Date Type Department Care Team (Late st Contact Info) Description 09/29/2024 Telephone [facility] [place] [address] [place] [address] Wayne Patino LPN [address] [place] [address] ER Visit Social History Tobacco Use Types Packs/Day Years [...] Telephone Encounter - Vianca Ruiz MD - 10/03/2024 2:57 PM EST Noted; thank you * Telephone Encounter - Mounika Frey - 09/29/2024 11:29 AM EST Created in error * Telephone Encounter - Mounika Frey - 09/29/2024 11:20 AM EST See note 09/07/24. I had tried to reach him re last ER visit and could not. Unable to reach letter sent with adult providers as he will be 20 on 06/09. * Telephone Encounter - Wayne Patino LPN - 09/29/2024 10:15 AM EST Pt seen in the ER for headache. [facility] records printed and put in folder in triage for scanning. Message sent to care coordination as this pt has multiple ER visits. documented in this encounter Plan of Treatment Not on file documented as of this encounter Visit Diagnoses Not on filedocumented in this encounter Care Teams Gem Setter Relationship Specialty Start Date End Date Provider, MD Marcel [address] [place] [phone] PCP - General Pediatrics 02/04/24 documented as of this encounter
--- OUTSIDE RECORDS SUMMARY | 2024-10-14 11:21 | XMS_ITS | Encounter Summary ---
Author Organization [facility] Address [address] [place] [address] Phone Care Team Providers Care Receiving Worker Name Role Phone ProviderMarcel MD Primary Care Provider [phone] Encounter Details Date Type Department Care Team (Late st Contact Info) Description 12/25/2009 Documentation [facility] [place] [address] [place] [address] Family Medicine, Physician [address] [place], [place] [address] Social History Tobacco Use Types Packs/Day Years [...] on filedocumented in this encounter Care Teams Receiving Worker Relationship Specialty Start Date End Date Provider, MD Marcel [address] [place] [phone] PCP - General Pediatrics 02/04/24 documented as of this encounter
--- OUTSIDE RECORDS SUMMARY | 2024-10-14 11:21 | XMS_ITS | Encounter Summary ---
Author Organization [facility] Address [address] [place] [address] Phone Care Team Providers Care Manager Investment Name Role Phone ProviderMarcel MD Primary Care Provider [phone] Encounter Details Date Type Department Care Team (Late st Contact Info) Description 01/09/2016 Documentation [facility] [place] [address] [place] [address] Family Medicine, Physician [address] [place], [place] [address] Social History Tobacco Use Types Packs/Day Years [...] filedocumented in this encounter Care Teams Manager Investment Relationship Specialty Start Date End Date Provider, MD Marcel [address] [place] [phone] PCP - General Pediatrics 02/04/24 documented as of this encounter
--- OUTSIDE RECORDS SUMMARY | 2024-10-14 11:21 | XMS_ITS | Encounter Summary ---
Author Organization [facility] Address [address] [place] [address] Phone Care Team Providers Care Tractor Mechanic Helper Name Role Phone ProviderMarcel MD Primary Care Provider [phone] Encounter Details Date Type Department Care Team (Late st Contact Info) Description 01/08/2016 Documentation [facility] [place] Family Medicine [address] [place] [address] Family Medicine, Physician [address] [place], [place] [address] Social History Tobacco Use Types Packs/Day Years [...] on filedocumented in this encounter Care Teams Tractor Mechanic Helper Relationship Specialty Start Date End Date Provider, MD Marcel [address] [place] [address] PCP - General Pediatrics 02/04/24 documented as of this encounter
--- OUTSIDE RECORDS SUMMARY | 2024-10-14 11:21 | XMS_ITS | Encounter Summary ---
Author Organization [facility] Address [address] [place] [address] Phone Care Team Providers Care Professional System Administrator Name Role Phone ProviderMarcel MD Primary Care Provider [phone] Encounter Details Date Type Department Care Team (Late st Contact Info) Description 01/08/2016 Documentation [facility] [place] [address] [place] [address] Family Medicine, Physician [address], [place] [address] Social History Tobacco Use Types Packs/Day Years [...] on filedocumented in this encounter Care Teams Professional System Administrator Relationship Specialty Start Date End Date Provider, MD Marcel [address] [place] [phone] PCP - General Pediatrics 02/04/24 documented as of this encounter
--- OUTSIDE RECORDS SUMMARY | 2024-10-14 11:21 | XMS_ITS | Encounter Summary ---
Author Organization [facility] Address [address] [place] [address] Phone Care Team Providers Care Actimize Architect Name Role Phone Provider, Marcel IVZCAINO Primary Care Provider [phone] Reason for Visit * Reason Comments ED Admission Encounter Details Date Type Department Care Team (Late st Contact Info) Description 09/28/2024 6:52 AM EST - 09/28/2024 10:35 AM [facility] Hospital Encounter [facility] [...] on filedocumented in this encounter Care Teams Actimize Architect Relationship Specialty Start Date End Date Provider, MD Marcel [address] [place] [phone] PCP - General Pediatrics 02/04/24 documented as of this encounter
--- OUTSIDE RECORDS SUMMARY | 2024-10-14 11:21 | XMS_ITS | Encounter Summary ---
Author Organization [facility] Address [address] [place] [address] Phone Care Team Providers Care Pediatric Registered Nurse Name Role Phone ProviderMarcel MD Primary Care Provider [phone] Encounter Details Date Type Department Care Team (Late st Contact Info) Description 07/03/2010 Documentation [facility] [place] Family Medicine [address] [place] [address] Family Medicine, Physician [address] [place], [place] [address] Social History Tobacco Use Types Packs/Day Years [...] on filedocumented in this encounter Care Teams Pediatric Registered Nurse Relationship Specialty Start Date End Date Provider, MD Marcel [address] [place] [address] PCP - General Pediatrics 02/04/24 documented as of this encounter
--- NOTE | 2024-10-14 11:26 | ED.HA ---
HPI - Headache General Chief Complaint: Headache Stated Complaint: migraine Time Seen by Provider: 10/14/24 11:13 Source: patient, RN notes reviewed and old records reviewed Mode of arrival: ambulatory History of Present Illness ED Provider: Paulina Carballo PA-C HPI Narrative: 19-year-old male with a past medical history ADHD presenting to the ED complaining of headache since yesterday, denies headache at present. Headache not maximal at onset. Took Tylenol [employer]. Admits to taking OTC medications at home without relief. 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 denies history of headaches/migraines, nausea, vomiting, numbness, tingling, weakness, vision change or loss. Related Data Previous Rx's ?Medication ?Instructions ?Recorded levofloxacin 500 mg tablet 500 mg PO DAILY #9 tabs 11/10/21 naproxen 500 mg tablet (Naprosyn) 500 mg PO BID #10 tabs 11/10/21 ibuprofen 600 mg tablet 600 mg PO Q6H PRN pain #30 tabs 05/11/24 lidocaine 4 % topical patch 1 patch topical DAILY PRN pain #30 05/11/24 (AsperFlex (lidocaine)) ea methocarbamol 750 mg tablet 750 mg PO Q8H PRN muscle spasm 3 05/11/24 days #9 tabs cephalexin 500 mg capsule 500 mg PO QID 5 days #20 caps 08/10/24 Allergies Allergy/AdvReac Type Severity Reaction Status Date / Time No Known Allergies Allergy Verified 10/14/24 08:26 Review of Systems Review of Systems: Yes all other systems are reviewed and are negative Constitutional: Constitutional: Reports as per HPI Neurologic: Denies Abnormal speech present [facility] Past Medical History Attestation statement: The following information was validated with the patient. Source: old records reviewed Medical History ADHD Social History Social History Alcohol intake: never Advance Directives: No Advance Directives Information Provided: No Do you have a plan to hurt others: No Plan Physical Exam Vital Signs: Vital Signs: Last Vital Signs Temp 98 F 10/14/24 08:24 Pulse 63 10/14/24 08:24 Resp 16 10/14/24 08:24 BP 116/65 10/14/24 08:24 Pulse Ox 98 10/14/24 08:24 O2 Del Method Room Air 10/14/24 08:24 BMI result Body Mass Index 18.0 Const: General: cooperative, healthy appearing and no acute distress Orientation/consciousness: patient oriented x3 Limitations: no limitations HEENT: Head: Yes normal to inspection and Yes atraumatic Ears: hearing grossly normal bilaterally General nose exam: Normal external nose present Face and sinus: Yes normal facial exam Mouth: Normal oral and palatal mucosa present and no drooling Throat: Yes posterior oropharynx normal, Yes uvula midline, No peritonsillar mass, No uvula laterally displaced and No uvular edema Eyes: General: appearance normal, both eyes and all related structures Pupils: Equal, round and reactive pupils present EOM: EOMs intact bilaterally Neck: Neck: Yes normal visual inspection and Yes no meningeal signs Resp: Effort & Inspection: normal respiratory effort and no respiratory distress Cardio: Rate: regular rate Skin: Rashes: no rashes Wounds: no wounds Neuro: General: patient oriented x3, gait normal, tone normal, moves all extremities, no meningeal signs, no focal motor deficits and CN's II-XI intact bilaterally Cranial nerves: Yes CN's II-XII intact bilaterally, Yes Equal, round and reactive pupils present and Yes Bilaterally intact EOM present Cognition (Neuro): normal cognition Speech: No Abnormal speech present Gait exam (Neuro): Normal gait present Motor exam (neuro): 5/5 motor strength present throughout Extrem: General: Yes normal to inspection Medical Decision Making Medical Decision Making [facility] Narrative: 19-year-old male with a past medical history ADHD presenting to the ED complaining of headache since yesterday, denies headache at present. Headache not maximal at onset. On exam vital signs stable, NAD, nontoxic appearing, asymptomatic at present, no focal neuro deficits. Concern for migraine headache vs viral illness. Low suspicion for ICH, meningitis/encephalitis, CVA/TIA Plan: Viral testing Please refer to course for remaining clinical decision making, interpretation of labs/imaging results, and discussions with consultants and/or family members. Differential Diagnosis Differential Diagnoses: The differential diagnosis associated with the presentation includes As above Admission/Observation Consideration of admission/observation: Escalation of care including admission/observation considered Lab Data [facility] Lab Attestation statement: I reviewed the patient's lab results. Radiology Impression Discussion of test interpretation with radiology: I have reviewed the radiologist's reading. External Record Review External record reviewed: Inpatient record, Office record, Outpatient record, Prior outpatient labs, Prior outpatient radiology, Primary care record and Outside ED record Tests considered The following testing was considered but not selected: As above Prescription Management I considered prescription management with: Pain Medication Chronic Conditions Patient?s care impacted by: Other Social Determinants Patient?s care significantly limited by Social Determinants of Health including: Other Social Determinant of Health Discharge Plan Discharge Clinical Impression: Headache Patient Disposition: Home, Self-Care Instructions: Acute Headache (DC) Additional Instructions: You tested for COVID, flu, RSV, this is currently pending, we will contact you with positive results only Take Tylenol and ibuprofen at home as needed for headache If her symptoms persist or worsen her headache becomes more constant, unremitting, ears nausea, vomiting, weakness return to the ED Follow up with her doctor Prescriptions: No Action naproxen [Naprosyn] 500 mg tablet 500 mg PO BID Qty: 10 0RF levofloxacin 500 mg tablet 500 mg PO DAILY Qty: 9 0RF cephalexin 500 mg capsule 500 mg PO QID 5 Days Qty: 20 0RF ibuprofen 600 mg tablet 600 mg PO Q6H PRN (Reason: pain) Qty: 30 0RF methocarbamol 750 mg tablet 750 mg PO Q8H PRN (Reason: muscle spasm) 3 Days Qty: 9 0RF lidocaine [AsperFlex (lidocaine)] 4 % adhesive patch,medicated 1 patch topical DAILY PRN (Reason: pain) Qty: 30 0RF Referrals: ED Physician,Generic [Emergency Provider] - 3 days Physician,None [Primary Care Provider] - Stand Alone Forms: Work/School Release Print Language: Russian
[2024-10-14 11:51] VITALS: BP 116/65; PULSE 63; RESP 16; TEMP 36.6; O2SAT 98
[2024-10-14 11:58] LABS: Influenza A PCR NEGATIVE (Negative); Influenza B PCR NEGATIVE (Negative); Resp Syncy Virus RNA Qual PCR NEGATIVE (Negative); SARS COV2 PCR INHOUSE NEGATIVE (Negative)
== END 2024-10-14 11:52 | disposition home or self-care (01) ==
PROVIDERS: Physician Assistant; Emergency Provider Emergency Medicine
DX: R51.9 Headache, unspecified (principal); Z03.818 Encounter for observation for suspected exposure to other biological agents ruled out
CPT/HCPCS: 0241U; 99282; 99283

== ENCOUNTER 2024-10-26 14:10 | Emergency (ER) | payer OTHER, SELFPAY ==
--- OUTSIDE RECORDS SUMMARY | 2024-10-26 19:23 | XMS_ITS | Encounter Summary ---
Author Organization [facility] Address [address] [place] [address] Phone Care Team Providers Care Precinct Police Lieutenant Name Role Phone ProviderMarcel MD Primary Care Provider Encounter Details Date Type Department Care Team (Late st Contact Info) Description 07/03/2010 Documentation [facility] Family Medicine [address] [place] [address] Family Medicine, Physician [address], [place] [id number] Social History Tobacco Use Types Packs/Day Years [...] on filedocumented in this encounter Care Teams Precinct Police Lieutenant Relationship Specialty Start Date End Date Provider, MD Marcel [address] [place] [address] PCP - General Pediatrics 02/04/24 documented as of this encounter
--- OUTSIDE RECORDS SUMMARY | 2024-10-26 19:23 | XMS_ITS | Encounter Summary ---
Author Organization [facility] Address [address] [place] [address] Phone Care Team Providers Care Coding Compliance Manager Name Role Phone ProviderMarcel MD Primary Care Provider [phone] Encounter Details Date Type Department Care Team (Late st Contact Info) Description 01/08/2016 Documentation [facility] Family Medicine [address] [place] [address] Family Medicine, Physician [address] [place], [place] [id number] Social History Tobacco Use Types Packs/Day Years [...] on filedocumented in this encounter Care Teams Coding Compliance Manager Relationship Specialty Start Date End Date Provider, MD Marcel [address] [place] [address] PCP - General Pediatrics 02/04/24 documented as of this encounter
--- OUTSIDE RECORDS SUMMARY | 2024-10-26 19:23 | XMS_ITS | Encounter Summary ---
Author Organization [facility] Address [address] [place] [address] Phone Care Team Providers Care Artificial Cherry Maker Name Role Phone ProviderMarcel MD Primary Care Provider [phone] Encounter Details Date Type Department Care Team (Late st Contact Info) Description 01/09/2016 Documentation [facility] Family Medicine [address] [place] [address] Family Medicine, Physician [address], [place] [id number] Social History Tobacco Use Types Packs/Day Years [...] on filedocumented in this encounter Care Teams Artificial Cherry Maker Relationship Specialty Start Date End Date Provider, MD Marcel [address] [place] [address] PCP - General Pediatrics 02/04/24 documented as of this encounter
--- OUTSIDE RECORDS SUMMARY | 2024-10-26 19:23 | XMS_ITS | Clinical Summary ---
Author Organization [facility] Address [address] [place] [address] Phone Care Team Providers Care Client Architect Name Role Phone Provider, Marcel VIZCAINO Primary Care Provider [phone] Allergies No known active allergies Medications mometasone [...] Encounters Date Type Department Care Team Description 10/26/2024 2:10 PM EDT - 10/26/2024 4:35 PM EDT Hospital Encounter [facility] - Patient Ping 10/18/2024 Telephone [facility] [address] [place] [address] Rhonda Ordoñez LPN ER f/u 10/14/2024 8:08 AM EST - 10/14/2024 11:52 AM EST Hospital Encounter [facility] - Patient Ping 09/29/2024 Telephone [facility] [address] [place] [address] Wayne Patino LPN ER Visit 09/28/2024 6:52 AM EST - 09/28/2024 10:35 AM EST Hospital Encounter [facility] - Patient Ping 09/07/2024 Telephone [facility] [address] [place] [address] Vianca Ruiz MD ER f/u; [facility] outreach letter 09/06/2024 1:56 PM EST - 09/06/2024 5:29 PM EST Hospital Encounter [facility] - Patient Ping 09/05/2024 Telephone [facility] [address] [place] [address] Anastasia Hanson LPN ER f/u 09/04/2024 12:58 PM EST - 09/04/2024 2:44 PM EST Hospital Encounter [facility] - Patient Ping 08/29/2024 Telephone [facility] [address] [place] [address] Hernan Dhillon RN ER f/u 08/26/2024 11:07 AM EST - 08/26/2024 12:31 PM EST Hospital Encounter [facility] - Patient Ping 08/12/2024 7:49 AM EST - 08/12/2024 9:32 AM EST Hospital Encounter [facility] - Patient Ping 08/10/2024 9:51 AM EST - 08/10/2024 1:57 PM EST Hospital Encounter [facility] - Patient Ping 08/10/2024 Telephone [facility] [address] [place] [address] Mojgan Cruz LPN ER follow up 07/29/2024 10:27 AM EST - 07/29/2024 1:21 PM EST Hospital Encounter [facility] - Patient Ping from Last 3 [...] Completed 04/24/2021, 018 Procedures * Due to [employer] law, this organization might not be sharing sensitive test results. Procedure Name Priority Date/Time Associated Diagnosis Comments CHLAMYDIA AND GONORRHEA, AMPLIFIED Routine 08/25/2023 11:23 AM EST Screening for chlamydial disease from Last 3 Months or Most Recently Relevant to Health Maintenance Results * Due to [place] [employer] law, this organization might not be sharing sensitive test results. * Chlamydia and Gonorrhoea, Amplified (08/25/2023 11:23 AM EST) Chlamydia Trachomatis, DNA Probe NEGATIVE (NEG) [facility] Comment: No Chlamydia Trachomatis RNA detected in this patient's sample ? (REFERENCE RANGE/NORMAL VALUE: NOT DETECTED) ? Note: This test uses trouble shooter- mediated amplification method to detect rRNA from C. Trachomatis URINE GC AMP PROBE NEGATIVE (NEG) [facility] Comment: No Neisseria Gonorrhoeae RNA detected in this patient's sample ? (REFERENCE RANGE/NORMAL VALUE: NOT DETECTED) ? NOTE: This test uses trouble shooter-mediated amplification method to detect rRNA from N.Gonorrhoeae. [...] without risk of sexual abuse. Consult the [facility] if needed. Contact phone number . Therapeutic failure or success cannot be determined with the Aptima Combo2 assay since nucleic acid may persist following appropriate antimicrobial therapy. The Centers for Disease Control and Prevention (CDC) recommends confirmatory retesting using culture or a different nucleic acid amplification test when positive results occur, if indicated. Testing performed or reported by [facility], a Service of [facility], [address] [place] [address] Naeem Fernandez MD, Floor Coverer [facility]# [id number] Urine (Urine) 08/25/2023 11: 23 AM EST 08/25/2023 8:25 PM EST us Abad Varela MD LAB MICROBIOLOGY - GENERAL ORDER FAVIOLA Final Result [facility] from Last 3 Months or Most Recently Relevant to Health Maintenance Insurance [facility] NON PCC [facility] Care Teams Client Architect Relationship Specialty Start Date End Date Provider, MD Marcel [address] [place] [phone] PCP - General Pediatrics 02/04/24
--- OUTSIDE RECORDS SUMMARY | 2024-10-26 19:23 | XMS_ITS | Encounter Summary ---
Author Organization [facility] Address [address] [place] [address] Phone Care Team Providers Care Document Improvement Specialist Name Role Phone Provider, Marcel VIZCAINO Primary Care Provider [phone] Reason for Visit * Reason Onset Date Comments ER f/u 10/18/2024 Encounter Details Date Type Department Care Team (Late st Contact Info) Description 10/18/2024 Telephone [facility] [address] [place] [address] Rhonda Ordoñez LPN [address] [place] [address] ER f/u Social History Tobacco Use Types [...] Telephone Encounter - Vianca Ruiz MD - 10/19/2024 8:32 AM EST Noted; thank you And yes-if he calls back-do not let him hang up-please have him speak with Suzie or another [facility] if she is unavailable. We must impress upon him that he needs to come into the office and be seen and not go to the ER so often unless it's a true emergency. * Telephone Encounter - Rhonda Ordoñez LPN - 10/18/2024 11:12 AM EST ER f/u call placed. VM left asking pt to call. Pt seen at [facility] ER on 10/14 for headache. This will be his 5th ER visit in 2024, in addition to many in 2023. See phone notes 09/[address] Ruiz and TERI Larsen. Notes printed for scanning. EH documented in this encounter Plan of Treatment Not on file documented as of this encounter Visit Diagnoses Not on filedocumented in this encounter Care Teams Document Improvement Specialist Relationship Specialty Start Date End Date Provider, MD Marcel [address] [place] [phone] PCP - General Pediatrics 02/04/24 documented as of this encounter
--- OUTSIDE RECORDS SUMMARY | 2024-10-26 19:23 | XMS_ITS | Encounter Summary ---
Author Organization [facility] Address [address] [place] [address] Phone Care Team Providers Care Group Reservations Coordinator Name Role Phone ProviderMarcel MD Primary Care Provider [phone] Encounter Details Date Type Department Care Team (Late st Contact Info) Description 01/08/2016 Documentation [facility] Family Medicine [address] [place] [address] Family Medicine, Physician [address], [place] [address] Social History Tobacco Use Types Packs/Day Years [...] on filedocumented in this encounter Care Teams Group Reservations Coordinator Relationship Specialty Start Date End Date Provider, MD Marcel [address] [place] [phone] PCP - General Pediatrics 02/04/24 documented as of this encounter
--- OUTSIDE RECORDS SUMMARY | 2024-10-26 19:23 | XMS_ITS | Encounter Summary ---
Author Organization [facility] Address [address] [place] [address] Phone Care Team Providers Care Technician Assistant Name Role Phone Provider, Marcel VIZCAINO Primary Care Provider [phone] Reason for Visit * Reason Comments ED Admission Encounter Details Date Type Department Care Team (Late st Contact Info) Description 10/14/2024 8:08 AM EST - 10/14/2024 11:52 AM [facility] Hospital Encounter [facility] - Patient Ping Social History [...] on filedocumented in this encounter Care Teams Technician Assistant Relationship Specialty Start Date End Date Provider, MD Marcel [address] [place] [phone] PCP - General Pediatrics 02/04/24 documented as of this encounter
--- OUTSIDE RECORDS SUMMARY | 2024-10-26 19:23 | XMS_ITS | Encounter Summary ---
Author Organization [facility] Address [address] [place] [address] Phone Care Team Providers Care Office Clerk Routine Name Role Phone ProviderMarcel MD Primary Care Provider [phone] Encounter Details Date Type Department Care Team (Late st Contact Info) Description 12/25/2009 Documentation [facility] [place] Medicine [address] [place] [address] Family Medicine, Physician [address], [place] [address] Social History Tobacco Use Types Packs/Day Years [...] on filedocumented in this encounter Care Teams Office Clerk Routine Relationship Specialty Start Date End Date Provider, MD Marcel [address] [place] [address] PCP - General Pediatrics 02/04/24 documented as of this encounter
--- OUTSIDE RECORDS SUMMARY | 2024-10-26 19:23 | XMS_ITS | Encounter Summary ---
Author Organization [facility] Address [address] [place] [address] Phone Care Team Providers Care Litigation Counsel Name Role Phone Provider, Marcel VIZCAINO Primary Care Provider [phone] Encounter Details Date Type Department Care Team (Late st Contact Info) Description 04/01/2017 Conversion Encounter [facility] [address] [place], [place] [phone] Social History Tobacco Use Types Packs/Day Years [...] on filedocumented in this encounter Care Teams Litigation Counsel Relationship Specialty Start Date End Date Provider, MD Marcel [address] [place] [phone] PCP - General Pediatrics 02/04/24 documented as of this encounter
--- OUTSIDE RECORDS SUMMARY | 2024-10-26 19:23 | XMS_ITS | Encounter Summary ---
Author Organization [facility] Address [address] [place] [address] Phone Care Team Providers Care Gravel Hauler Name Role Phone Provider, Marcel VIZCAINO Primary Care Provider [phone] Reason for Visit * Reason Comments ED Admission Encounter Details Date Type Department Care Team (Late st Contact Info) Description 09/28/2024 6:52 AM EST - 09/28/2024 10:35 AM [facility] Hospital Encounter [facility] - Patient Ping Social History Tobacco [...] on filedocumented in this encounter Care Teams Gravel Hauler Relationship Specialty Start Date End Date Provider, MD Marcel [address] [place] [address] PCP - General Pediatrics 02/04/24 documented as of this encounter
--- OUTSIDE RECORDS SUMMARY | 2024-10-26 19:23 | XMS_ITS | Encounter Summary ---
Author Organization [facility] Address [address] [place] [address] Phone Care Team Providers Care Freelance Displayer Name Role Phone Provider, Marcel VIZCAINO Primary Care Provider [phone] Reason for Visit * Reason Comments ED Admission Encounter Details Date Type Department Care Team (Late st Contact Info) Description 10/26/2024 2:10 PM EDT - 10/26/2024 4:35 PM EDT Hospital Encounter [facility] - Patient Ping Social History Tobacco [...] on filedocumented in this encounter Care Teams Freelance Displayer Relationship Specialty Start Date End Date Provider, MD Marcel [address] [place] [address] PCP - General Pediatrics 02/04/24 documented as of this encounter
--- OUTSIDE RECORDS SUMMARY | 2024-10-26 19:23 | XMS_ITS | Encounter Summary ---
Author Organization [facility] Address [address] [place] [address] Phone Care Team Providers Care Immigration Law Specialist Name Role Phone ProviderMarcel MD Primary Care Provider [phone] Encounter Details Date Type Department Care Team (Late st Contact Info) Description 09/20/2014 Documentation [facility] Family Medicine [address] [place] [address] Family Medicine, Physician [address] [place] [address] Social History Tobacco Use Types Packs/Day Years [...] on filedocumented in this encounter Care Teams Immigration Law Specialist Relationship Specialty Start Date End Date Provider, MD Marcel [address] [place] [address] PCP - General Pediatrics 02/04/24 documented as of this encounter
--- OUTSIDE RECORDS SUMMARY | 2024-10-26 19:23 | XMS_ITS | Encounter Summary ---
Author Organization [facility] Address [address] [place] [address] Phone Care Team Providers Care Sales Associate Name Role Phone Provider, Marcel VIZCAINO Primary Care Provider [phone] Reason for Visit * Reason Onset Date Comments ER Visit 09/29/2024 Encounter Details Date Type Department Care Team (Late st Contact Info) Description 09/29/2024 Telephone [facility] [address] [place] [address] Wayne Patino LPN [address] [place] [address] ER Visit Social History Tobacco Use Types [...] Pt seen in the ER for headache. [facility] records printed and put in folder in triage for scanning. Message sent to care coordination as this pt has multiple ER visits. documented in this encounter Plan of Treatment Not on file documented as of this encounter Visit Diagnoses Not on filedocumented in this encounter Care Teams Sales Associate Relationship Specialty Start Date End Date Provider, MD Marcel [address] [place] [phone] PCP - General Pediatrics 02/04/24 documented as of this encounter
== END 2024-10-26 16:35 | disposition left against medical advice (07) ==
PROVIDERS: Emergency Provider Emergency Medicine
DX: M54.9 Dorsalgia, unspecified (principal); Z53.21 Procedure and treatment not carried out due to patient leaving prior to being seen by health care provider

== ENCOUNTER 2024-10-26 21:07 | Emergency (ER) | payer OTHER, SELFPAY ==
[2024-10-26 21:16] VITALS: BP 111/61; PULSE 85; RESP 18; TEMP 36.3; O2SAT 97; BMI 24.9
[2024-10-26 21:39] LABS: MANUAL DIFF FLAG NO
[2024-10-26 21:41] LABS: Basophils Percent Auto 0.5 % (0-2); Eosinophils Absolute Auto 0.1 X10*3/uL (0.0-0.4); Eosinophils Percent Auto 1.9 % (0-4); Hematocrit 36.9 % (42.0-52.0); Hemoglobin 13.4 g/dl (14.0-18.0); Imm Gran Abs Auto 0.01 X10*3/uL (0.00-0.03); Imm Gran Pct Auto 0.2 % (0.0-0.4); Lymphocytes Absolute Auto 1.5 X10*3/uL (1.2-4.9); Mean Corpuscular HGB Conc 36.3 g/dl (31.0-36.0); Mean Corpuscular Hemoglobin 32.2 pg (27.0-33.0); Mean Corpuscular Volume 88.7 fL (80.0-98.0); Mean Platelet Volume 10.2 fL (9.4-12.4); Monocytes Absolute Auto 0.5 X10*3/uL (0.1-1.2); Monocytes Percent Auto 8.5 % (2-11); Neutrophils Absolute Auto 3.8 x10*3/uL (2.0-8.3); Neutrophils Percent Auto 63.9 % (45-73); Platelet Count 197 X10*3/uL (160-400); Red Blood Count 4.16 X10*6/uL (4.60-5.80); Red Cell Distribution Width 12.2 % (11.0-16.0); White Blood Count 5.9 X10*3/uL (4.8-10.8)
[2024-10-26 21:54] LABS: Alanine Aminotransferase 19 U/L (0-40); Albumin Level 4.3 g/dL (3.5-5.0); Alkaline Phosphatase 65 U/L (39-117); Anion Gap 13 (12-20); Aspartate Amino Transferase 21 U/L (5-37); Bilirubin Total 0.5 mg/dL (0.0-1.0); Blood Urea Nitrogen 18 mg/dL (9-16); Calcium 8.8 mg/dL (8.4-10.2); Carbon Dioxide 23 mmol/L (22-29); Chloride 110 mmol/L (96-108); Creatinine Clr Calc Pharmacy 121.8; Estimated Glomerular Filt Rate > 60; Glucose Random 83 mg/dL (60-115); Potassium 3.7 mmol/L (3.3-5.1); Sodium 142 mmol/L (135-145); Total Protein 7.5 g/dL (6.5-8.0)
[2024-10-26 22:19] LABS: Influenza A PCR NEGATIVE (Negative); Influenza B PCR NEGATIVE (Negative); Resp Syncy Virus RNA Qual PCR NEGATIVE (Negative); SARS COV2 PCR INHOUSE NEGATIVE (Negative)
[2024-10-27] VITALS: BP 106/59; PULSE 77; RESP 16; TEMP 36.7; O2SAT 97
[2024-10-27] MEDS: Ibuprofen 600 MG TABLET PO (00:12)
--- NOTE | 2024-10-27 00:49 | ED_ITS ---
HPI - Headache General Chief Complaint: Headache Stated Complaint: MIGRAINE Time Seen by Provider: 10/26/24 23:53 Source: patient Mode of arrival: ambulatory Limitations: no limitations History of Present Illness ED Provider: graciela dolan np HPI Narrative: Patient is a 19-year-old male who presents emergency department for evaluation of the frontal headache with onset last night. He denied to nursing staff history of migraines, but he has been seen in this emergency department a few times in the past similarly with a mild headache that resolves with NSAID. Reports that he took acetaminophen at 17:00 this evening. Denies any red flag symptoms including fevers, chills, neck stiffness, malaise, aphasia, weakness, poor coordination, descriptors such as ?the worst headache ever ?or ?thunderclap?, or painful temporal region. Denies dizziness, lightheadedness, vision changes, URI symptoms, chest pain, shortness of breath, numbness or tingling of the extremities. Related Data Previous Rx's ?Medication ?Instructions ?Recorded levofloxacin 500 mg tablet 500 mg PO DAILY #9 tabs 11/10/21 naproxen 500 mg tablet (Naprosyn) 500 mg PO BID #10 tabs 11/10/21 ibuprofen 600 mg tablet 600 mg PO Q6H PRN pain #30 tabs 05/11/24 lidocaine 4 % topical patch 1 patch topical DAILY PRN pain #30 05/11/24 (AsperFlex (lidocaine)) ea methocarbamol 750 mg tablet 750 mg PO Q8H PRN muscle spasm 3 05/11/24 days #9 tabs cephalexin 500 mg capsule 500 mg PO QID 5 days #20 caps 08/10/24 Allergies Allergy/AdvReac Type Severity Reaction Status Date / Time No Known Allergies Allergy Verified 10/26/24 21:18 Review of Systems 2 Review of Systems: Yes all other systems are reviewed and are negative PMFSH Past Medical History Attestation statement: The following information was validated with the patient. Source: old records reviewed Medical History ADHD Social History Social History Alcohol intake: never Smoked in Last 30 Days: No Use of substances other than those prescribed or required for medical reasons: Yes Substance Use Type: Marijuana Advance Directives: No Advance Directives Information Provided: Yes Do you have a plan to hurt others: No Plan Physical Exam 2 Vital Signs: Vital Signs: Last Vital Signs Temp 98.1 F 10/27/24 00:00 Pulse 77 10/27/24 00:00 Resp 16 10/27/24 00:00 BP 106/59 L 10/27/24 00:00 Pulse Ox 97 10/27/24 00:00 O2 Del Method Room Air 10/27/24 00:00 BMI result Body Mass Index 24.9 Appearance: Alert.?Oriented to person, place and time. No acute distress.?Normal affect. Head: Normocephalic, atraumatic Eyes: Pupils equal, round and reactive to light. EOMI. No nystagmus. No ptosis. No tenderness to palpation over the temporal region. ENT: External auditory canal normal tympanic membrane pearly andrade and intact bilaterally. Oropharynx normal. Neck: Normal inspection.? Neck supple. No nuchal rigidity. CVS: Heart sounds normal. Normal heart rate and rhythm.? Pulses normal.?? Respiratory: No respiratory distress.? Lung sounds clear to auscultation bilaterally?? Abdomen: Soft and non-tender. Normoactive bowel sounds. ?? Skin: Skin warm and dry.? Normal skin color.? ?? Extremities: No lower extremity edema.? Neuro: Moves all extremities spontaneously. Sensation intact bilaterally. CN II- XII intact. No focal neuro deficits. Ambulatory with steady gait. Course Reevaluation(s) Reevaluation #1: Patient with a history of recurrent and or similar headache, there is no substantial change to typical headache pattern, there are no red flag symptoms, no focal neurological deficits, no high risk comorbidities, at this time feel that patient is stable for discharge home Medications Administered Discontinued Medications Generic Name Dose Route Start Last Admin Trade Name Freq PRN Reason Stop Dose Admin Ibuprofen 600 mg 10/27/24 00:08 10/27/24 00:12 Ibuprofen 600 Mg Tablet PO 10/27/24 00:09 600 mg ONCE ONE Administration Medical Decision Making Medical Decision Making [facility] Narrative: Patient is a 19-year-old male who presents emergency department for evaluation a mild headache as per HPI. Overall is well-appearing, nontoxic, afebrile. No injury. No focal neurological deficits. Has been seen in the past for similar. Unlikely SDH, SDH, ICH, intracranial mass. He is without nuchal rigidity. No recent URI symptoms. Headache was resolved with ibuprofen in the emergency department. Feel he is otherwise stable for discharge, outpatient follow-up with PCP. Advised viral studies were negative today. CBC is without leukocytosis, has a mild anemia that does not meet transfusion criteria. No electrolyte derangement. No ANG. LFTs are normal. Discussed strict return precautions. All questions answered Differential Diagnosis Differential Diagnoses: The differential diagnosis associated with the presentation includes (SDH, SAH, ICH, FLAVORINGS COMPOUNDER mass, meningitis, encephalitis, CVA, GCA, migraine, headache) Admission/Observation Consideration of admission/observation: Escalation of care including admission/observation considered (See narrative above) Lab Data MDM Lab Attestation statement: I reviewed the patient's lab results. (See narrative above) 10/26/24 21:34 10/26/24 21:34 Labs: Lab Results 10/26/24 Range/Units 21:34 WBC 5.9 (4.8-10.8) X10*3/uL RBC 4.16 L (4.60-5.80) X10*6/uL Hgb 13.4 L (14.0-18.0) g/dl Hct 36.9 L (42.0-52.0) % MCV 88.7 (80.0-98.0) fL MCH 32.2 (27.0-33.0) pg MCHC 36.3 H (31.0-36.0) g/dl RDW 12.2 (11.0-16.0) % Plt Count 197 (160-400) X10*3/uL MPV 10.2 (9.4-12.4) fL Immature Gran % (Auto) 0.2 (0.0-0.4) % Neut % (Auto) 63.9 (45-73) % Lymph % (Auto) 25.0 (20-40) % Limestone % (Auto) 8.5 (2-11) % Eos % (Auto) 1.9 (0-4) % Baso % (Auto) 0.5 (0-2) % Lymph # (Auto) 1.5 (1.2-4.9) X10*3/uL Limestone # (Auto) 0.5 (0.1-1.2) X10*3/uL Eos # (Auto) 0.1 (0.0-0.4) X10*3/uL Baso # (Auto) 0.0 (0.0-0.2) X10*3/uL Abs Immat Gran (auto) 0.01 (0.00-0.03) X10*3/uL Absolute Neuts (auto) 3.8 (2.0-8.3) x10*3/uL Absolute Nucleated RBC 0.000 (0.0-0.012) X10*3/uL Nucleated RBC % (auto) 0.0 (0.0-0.2) /100WBC Sodium 142 (135-145) mmol/L Potassium 3.7 (3.3-5.1) mmol/L Chloride 110 H (96-108) mmol/L Carbon Dioxide 23 (22-29) mmol/L Anion Gap 13 (12-20) BUN 18 H (9-16) mg/dL Creatinine 0.81 (0.5-1.4) mg/dL Estim Creat Clear Calc 121.8 Estimated GFR > 60 Random Glucose 83 (60-115) mg/dL Calcium 8.8 (8.4-10.2) mg/dL Total Bilirubin 0.5 (0.0-1.0) mg/dL AST 21 (5-37) U/L ALT 19 (0-40) U/L Alkaline Phosphatase 65 (39-117) U/L Total Protein 7.5 (6.5-8.0) g/dL Albumin 4.3 (3.5-5.0) g/dL Influenza Type A (PCR) NEGATIVE (Negative) Influenza Type B (PCR) NEGATIVE (Negative) RSV RNA Qual (PCR) NEGATIVE (Negative) SARS-CoV-2 RNA (RT-PCR) NEGATIVE (Negative) External Record Review External record reviewed: Outpatient record Tests considered The following testing was considered but not selected: See narrative above, CT head deferred Prescription Management I considered prescription management with: Pain Medication (Acetaminophen/ibuprofen) Discharge Plan Discharge Clinical Impression: Headache Patient Disposition: Home, Self-Care Additional Instructions: You can take ibuprofen 200 mg, 3 tablets (600mg) every 6-8 hours as needed for pain, in addition to Tylenol 500 mg, 2 tablets (1,000mg) every 4-6 hours as needed for pain, but not to exceed 3 doses daily (3,000mg).? Your primary care doctor. Return with any new or worsening symptoms or concerns Prescriptions: No Action naproxen [Naprosyn] 500 mg tablet 500 mg PO BID Qty: 10 0RF levofloxacin 500 mg tablet 500 mg PO DAILY Qty: 9 0RF cephalexin 500 mg capsule 500 mg PO QID 5 Days Qty: 20 0RF ibuprofen 600 mg tablet 600 mg PO Q6H PRN (Reason: pain) Qty: 30 0RF methocarbamol 750 mg tablet 750 mg PO Q8H PRN (Reason: muscle spasm) 3 Days Qty: 9 0RF lidocaine [AsperFlex (lidocaine)] 4 % adhesive patch,medicated 1 patch topical DAILY PRN (Reason: pain) Qty: 30 0RF Referrals: Physician,Unknown J [Primary Care Provider] - Print Language: French
[2024-10-27 01:02] VITALS: BP 106/59; PULSE 77; RESP 16; TEMP 36.7; O2SAT 97
== END 2024-10-27 01:03 | disposition home or self-care (01) ==
PROVIDERS: Emergency Provider Emergency Medicine
DX: R51.9 Headache, unspecified (principal); Z03.818 Encounter for observation for suspected exposure to other biological agents ruled out
CPT/HCPCS: 0241U; 80053; 85025; 99283; 99284

== ENCOUNTER 2024-11-16 07:24 | Emergency (ER) | payer OTHER, SELFPAY ==
[2024-11-16 07:26] VITALS: BP 108/69; PULSE 58; RESP 18; TEMP 36.4; O2SAT 98; BMI 19.4
[2024-11-16 07:41] LABS: MANUAL DIFF FLAG NO
--- OUTSIDE RECORDS SUMMARY | 2024-11-16 07:42 | XMS_ITS | Encounter Summary ---
Author Organization [facility] Address [address] [place] [address] Phone Care Team Providers Care Director Medical Science Name Role Phone ProviderMarcel MD Primary Care Provider [phone] Encounter Details Date Type Department Care Team (Late st Contact Info) Description 01/08/2016 Documentation [facility] [place] Family Medicine [address] [place] [address] Family Medicine, Physician [address] [place] [place], [place] [id number] Social History Tobacco Use Types Packs/Day Years [...] on filedocumented in this encounter Care Teams Director Medical Science Relationship Specialty Start Date End Date Provider, MD Marcel [address] [place] [address] PCP - General Pediatrics 02/04/24 documented as of this encounter
--- OUTSIDE RECORDS SUMMARY | 2024-11-16 07:42 | XMS_ITS | Clinical Summary ---
Author Organization [facility] Address [address] [place] [address] Phone Care Team Providers Care Life Consultant Name Role Phone Provider, Marcel VIZCAINO Primary Care Provider [phone] Allergies No known active allergies Medications mometasone [...] Resolved Date History of COVID-19 11/13/2020 08/25/19 Overview (11/28/2020): Dx'ed 11/12/20 Cardiac clearance 11/28/20 Acne vulgaris 01/03/2019 08/25/2023 Overview (01/04/2020): 01/02 - Rx'ed Retin A for facial acne ADHD 01/02/2019 Encounters Date Type Department Care Team Description 11/16/2024 7:24 AM EDT - Present Hospital Encounter [facility] - Patient Ping 10/26/2024 9:07 PM EDT - 10/27/2024 1:03 AM EDT Hospital Encounter [facility] - Patient Ping 10/26/2024 2:10 PM EDT - 10/26/2024 4:35 PM EDT Hospital Encounter [facility] - Patient Ping 10/18/2024 Telephone [facility] [place] [address] [place] [address] Rhonda Ordoñez LPN ER f/u 10/14/2024 8:08 AM EST - 10/14/2024 11:52 AM EST Hospital Encounter [facility] - Patient Ping 09/29/2024 Telephone [facility] [place] [address] [place], [place] [phone] Wayne Patino LPN ER Visit 09/28/2024 6:52 AM EST - 09/28/2024 10:35 AM EST Hospital Encounter [facility] - Patient Ping 09/07/2024 Telephone [facility] [address] [place] [address] Vianca Ruiz MD ER f/u; [facility] [place] outreach letter 09/06/2024 1:56 PM EST - 09/06/2024 5:29 PM EST Hospital Encounter [facility] - Patient Ping 09/05/2024 Telephone [facility] [address] [place] [address] Anastasia Hanson LPN ER f/u 09/04/2024 12:58 PM EST - 09/04/2024 2:44 PM EST Hospital Encounter [facility] - Patient Ping 08/29/2024 Telephone [facility] [address] [place] [address] Hernan Dhillon RN ER f/u 08/26/2024 11:07 AM EST - 08/26/2024 12:31 PM EST Hospital Encounter [facility] - Patient Ping from Last 3 [...] complete until the patient is discharged.Due to [employer] law, this organization might not be sharing sensitive test results. Procedure Name Priority Date/Time Associated Diagnosis Comments CHLAMYDIA AND GONORRHEA, AMPLIFIED Routine 08/25/2023 11:23 AM EST Screening for chlamydial disease from Last 3 Months or Most Recently Relevant to Health Maintenance Results * Due to [employer] law, this organization might not be sharing sensitive test results. * Chlamydia and Gonorrhoea, Amplified (08/25/2023 11:23 AM EST) Chlamydia Trachomatis, DNA Probe NEGATIVE (NEG) [facility] Comment: No Chlamydia Trachomatis RNA detected in this patient's sample ? (REFERENCE RANGE/NORMAL VALUE: NOT DETECTED) ? Note: This test uses line director- mediated amplification method to detect rRNA from C. Trachomatis URINE GC AMP PROBE NEGATIVE (NEG) [facility] Comment: No Neisseria Gonorrhoeae RNA detected in this patient's sample ? (REFERENCE RANGE/NORMAL VALUE: NOT DETECTED) ? NOTE: This test uses line director-mediated amplification method to detect rRNA from N.Gonorrhoeae. [...] without risk of sexual abuse. Consult the [facility] if needed. Contact phone number . Therapeutic failure or success cannot be determined with the Aptima Combo2 assay since nucleic acid may persist following appropriate antimicrobial therapy. The Centers for Disease Control and Prevention (CDC) recommends confirmatory retesting using culture or a different nucleic acid amplification test when positive results occur, if indicated. Testing performed or reported by [facility], a Service of [facility], [address] [place] [address] [place] [address] Naeem Fernandez MD, Airline Attendant [facility]# [id number] Urine (Urine) 08/25/2023 11: 23 AM EST 08/25/2023 8:25 PM EST us Abad Varela MD LAB MICROBIOLOGY - GENERAL ORDER FAVIOLA Final Result [facility] from Last 3 Months or Most Recently Relevant to Health Maintenance Insurance [facility] NON PCC [facility] ACO Care Teams Life Consultant Relationship Specialty Start Date End Date Provider, MD Marcel [address] [place] [phone] PCP - General Pediatrics 02/04/24
--- OUTSIDE RECORDS SUMMARY | 2024-11-16 07:42 | XMS_ITS | Encounter Summary ---
Author Organization [facility] Address [address] [place] [address] Phone Care Team Providers Care Medieval English Literature Professor Name Role Phone Provider, Marcel VIZCAINO Primary Care Provider [phone] Reason for Visit * Reason Comments ED Admission Encounter Details Date Type Department Care Team (Late st Contact Info) Description 11/16/2024 7:24 AM EDT - Present Hospital Encounter [facility] - Patient Ping Social History Tobacco [...] on filedocumented in this encounter Care Teams Medieval English Literature Professor Relationship Specialty Start Date End Date Provider, MD Marcel [address] [place] [phone] PCP - General Pediatrics 02/04/24 documented as of this encounter
--- OUTSIDE RECORDS SUMMARY | 2024-11-16 07:42 | XMS_ITS | Encounter Summary ---
Author Organization [facility] Address [address] [place] [address] Phone Care Team Providers Care Associate Theatre Professor Name Role Phone Provider, Marcel VIZCAINO Primary Care Provider [phone] Reason for Visit * Reason Onset Date Comments ER f/u 10/18/2024 Encounter Details Date Type Department Care Team (Late st Contact Info) Description 10/18/2024 Telephone [facility] [place] [address] [place] [address] Rhonda Ordoñez LPN [address] [place] [address] ER f/u Social History Tobacco Use Types [...] have him speak with Suzie or another [facility] if she is unavailable. We must impress upon him that he needs to come into the office and be seen and not go to the ER so often unless it's a true emergency. * Telephone Encounter - Rhonda Ordoñez LPN - 10/18/2024 11:12 AM EST ER f/u call placed. VM left asking pt to call. Pt seen at [facility] ER on 10/14 for headache. This will be his 5th ER visit in 2024, in addition to many in 2023. See phone notes 09/[address] Ruiz and TERI Larsen. Notes printed for scanning. EH documented in this encounter Plan of Treatment Not on file documented as of this encounter Visit Diagnoses Not on filedocumented in this encounter Care Teams Associate Theatre Professor Relationship Specialty Start Date End Date Provider, MD Marcel [address] [place] [phone] PCP - General Pediatrics 02/04/24 documented as of this encounter
--- OUTSIDE RECORDS SUMMARY | 2024-11-16 07:42 | XMS_ITS | Encounter Summary ---
Author Organization [facility] Address [address] [place] [address] Phone Care Team Providers Care Milk Tanker Driver Name Role Phone ProviderMarcel MD Primary Care Provider [phone] Encounter Details Date Type Department Care Team (Late st Contact Info) Description 09/20/2014 Documentation [facility] [place] Family Medicine [address] [place] [address] Family Medicine, Physician [address] [place] [address] Social History Tobacco Use Types Packs/Day Years [...] on filedocumented in this encounter Care Teams Milk Tanker Driver Relationship Specialty Start Date End Date Provider, MD Marcel [address] [place] [phone] PCP - General Pediatrics 02/04/24 documented as of this encounter
--- OUTSIDE RECORDS SUMMARY | 2024-11-16 07:42 | XMS_ITS | Encounter Summary ---
Author Organization [facility] Address [address] [place] [address] Phone Care Team Providers Care Weaver Tire Cord Name Role Phone ProviderMarcel MD Primary Care Provider [phone] Encounter Details Date Type Department Care Team (Late st Contact Info) Description 01/09/2016 [place]ation [facility] [place] [address] [place] [address] Family Medicine, Physician [address] [place], [place] [address] Social History Tobacco Use Types Packs/Day Years [...] on filedocumented in this encounter Care Teams [employer] Cord Relationship Specialty Start Date End Date Provider, MD Marcel [address] [place] [phone] PCP - General Pediatrics 02/04/24 documented as of this encounter
--- OUTSIDE RECORDS SUMMARY | 2024-11-16 07:42 | XMS_ITS | Encounter Summary ---
Author Organization [facility] Address [address] [place] [address] Phone Care Team Providers Care Continuous Improvement Engineer Name Role Phone ProviderMarcel MD Primary Care Provider [phone] Encounter Details Date Type Department Care Team (Late st Contact Info) Description 07/03/2010 Documentation [facility] [place] Family Medicine [address] [place] [address] Family Medicine, Physician [address], [place] [phone] Social History Tobacco Use Types Packs/Day Years [...] on filedocumented in this encounter Care Teams Continuous Improvement Engineer Relationship Specialty Start Date End Date Provider, MD Marcel [address] [place] [phone] PCP - General Pediatrics 02/04/24 documented as of this encounter
--- OUTSIDE RECORDS SUMMARY | 2024-11-16 07:42 | XMS_ITS | Encounter Summary ---
Author Organization [facility] Address [address] [place] [address] Phone Care Team Providers Care Professional Housing Consultant Name Role Phone ProviderMarcel MD Primary Care Provider [phone] Encounter Details Date Type Department Care Team (Late st Contact Info) Description 12/25/2009 Documentation [facility] [place] Family Medicine [address] [place] [address] Family Medicine, Physician [address] [place], [place] [address] Social History Tobacco Use Types Packs/Day Years [...] filedocumented in this encounter Care Teams Professional Housing Consultant Relationship Specialty Start Date End Date Provider, MD Marcel [address] [place] [phone] PCP - General Pediatrics 02/04/24 documented as of this encounter
--- OUTSIDE RECORDS SUMMARY | 2024-11-16 07:42 | XMS_ITS | Encounter Summary ---
Author Organization [facility] Address [address] [place] [address] Phone Care Team Providers Care Nuisance Wildlife Control Operator Name Role Phone ProviderMarcel MD Primary Care Provider [phone] Encounter Details Date Type Department Care Team (Late st Contact Info) Description 01/08/2016 Documentation [facility] [place] [address] [place] [address] Family Medicine, Physician [address], [place] [address] Social History Tobacco Use Types Packs/Day Years [...] on filedocumented in this encounter Care Teams Nuisance Wildlife Control Operator Relationship Specialty Start Date End Date Provider, MD Marcel [address] [place] [phone] PCP - General Pediatrics 02/04/24 documented as of this encounter
--- OUTSIDE RECORDS SUMMARY | 2024-11-16 07:42 | XMS_ITS | Encounter Summary ---
Author Organization [facility] Address [address] [place] [address] Phone Care Team Providers Care Welding Machine Operator/Tender Name Role Phone Provider, Marcel VIZCAINO Primary Care Provider [phone] Encounter Details Date Type Department Care Team (Late st Contact Info) Description 04/01/2017 Conversion Encounter [facility] [place] [address] [place], [place] [phone] Social History Tobacco Use Types Packs/Day Years [...] on filedocumented in this encounter Care Teams Welding Machine Operator/Tender Relationship Specialty Start Date End Date Provider, MD Marcel [address] [place] [phone] PCP - General Pediatrics 02/04/24 documented as of this encounter
[2024-11-16 07:46] LABS: Basophils Absolute Auto 0.1 X10*3/uL (0.0-0.2); Basophils Percent Auto 1.1 % (0-2); Eosinophils Absolute Auto 0.2 X10*3/uL (0.0-0.4); Eosinophils Percent Auto 3.3 % (0-4); Hematocrit 39.9 % (42.0-52.0); Imm Gran Abs Auto 0.01 X10*3/uL (0.00-0.03); Imm Gran Pct Auto 0.2 % (0.0-0.4); Lymphocytes Absolute Auto 1.7 X10*3/uL (1.2-4.9); Lymphocytes Percent Auto 36.7 % (20-40); Mean Corpuscular HGB Conc 35.1 g/dl (31.0-36.0); Mean Corpuscular Hemoglobin 31.6 pg (27.0-33.0); Mean Corpuscular Volume 90.1 fL (80.0-98.0); Mean Platelet Volume 10.5 fL (9.4-12.4); Monocytes Absolute Auto 0.4 X10*3/uL (0.1-1.2); Monocytes Percent Auto 9.1 % (2-11); Neutrophils Absolute Auto 2.2 x10*3/uL (2.0-8.3); Neutrophils Percent Auto 49.6 % (45-73); Platelet Count 194 X10*3/uL (160-400); Red Blood Count 4.43 X10*6/uL (4.60-5.80); White Blood Count 4.5 X10*3/uL (4.8-10.8)
[2024-11-16 07:58] LABS: Alanine Aminotransferase 11 U/L (0-40); Albumin Level 4.2 g/dL (3.5-5.0); Alkaline Phosphatase 61 U/L (39-117); Anion Gap 9 (12-20); Aspartate Amino Transferase 17 U/L (5-37); Bilirubin Direct 0.2 mg/dL (0.0-0.5); Bilirubin Total 0.4 mg/dL (0.0-1.0); Blood Urea Nitrogen 11 mg/dL (9-16); Calcium 8.9 mg/dL (8.4-10.2); Carbon Dioxide 25 mmol/L (22-29); Chloride 112 mmol/L (96-108); Creatinine Clr Calc Pharmacy 129.5; Estimated Glomerular Filt Rate > 60; Glucose Random 96 mg/dL (60-115); Lipase 17 U/L (8-78); Potassium 4.3 mmol/L (3.3-5.1); Sodium 142 mmol/L (135-145); Total Protein 6.6 g/dL (6.5-8.0)
[2024-11-16 08:11] VITALS: BP 113/65; PULSE 50; RESP 16; TEMP 36.5; O2SAT 98
--- NOTE | 2024-11-16 08:17 | ED.ABDPAIN ---
HPI - Abdominal Pain General Chief Complaint: Abdominal Pain Stated Complaint: abd pain Time Seen by Provider: 11/16/24 08:10 Source: patient Mode of arrival: ambulatory Limitations: no limitations History of Present Illness ED Provider: DR. Walton HPI narrative: This is a 19-year-old presented for evaluation of abdominal pain. Mid abdominal pain started since 06:00, felt nauseous but no vomiting, normal bowel movement, normal urination with no dysuria or frequency urination or blood in in the urine. No history of bad food, no sick contacts exposure, never had intra-abdominal surgery in the past. No fever, no chills. Eat with good appetite. Related Data Previous Rx's ?Medication ?Instructions ?Recorded levofloxacin 500 mg tablet 500 mg PO DAILY #9 tabs 11/10/21 naproxen 500 mg tablet (Naprosyn) 500 mg PO BID #10 tabs 11/10/21 ibuprofen 600 mg tablet 600 mg PO Q6H PRN pain #30 tabs 05/11/24 lidocaine 4 % topical patch 1 patch topical DAILY PRN pain #30 05/11/24 (AsperFlex (lidocaine)) ea methocarbamol 750 mg tablet 750 mg PO Q8H PRN muscle spasm 3 05/11/24 days #9 tabs cephalexin 500 mg capsule 500 mg PO QID 5 days #20 caps 08/10/24 Allergies Allergy/AdvReac Type Severity Reaction Status Date / Time No Known Allergies Allergy Verified 11/16/24 07:29 Review of Systems Review of Systems All other systems are reviewed and are negative Constitutional: Reports as per HPI and Reports no additional constitutional complaints Eyes: Reports as per HPI and Reports no additional eye complaints Reports system reviewed and no additional complaints, except as documented Cardiovascular: Reports as per HPI and Reports no additional cardiovascular complaints Respiratory: Reports as per HPI and Reports no additional respiratory complaints Gastrointestinal: Reports as per HPI and Reports no additional gastrointestinal complaints Genitourinary: Reports no additional female genitourinary complaints Musculoskeletal: Reports no additional musculoskeletal complaints Skin/Breast: Reports system reviewed and no additional complaints, except as docu Psychiatric: Reports no additional psychiatric complaints Endocrine: Reports no additional endocrine complaints Hematologic/Lymphatic: Reports no additional hematologic/lymphatic complaints Allergic/Immunologic: Reports no additional allergic/immunologic complaints Reports system reviewed and no additional complaints, except as documented and Reports Abnormal speech present [facility] Past Medical History Medical History ADHD Social History Social History Alcohol intake: never Substance Use Type: Marijuana Advance Directives: No Advance Directives Information Provided: Yes Do you have a plan to hurt others: No Plan Physical Exam ED Vital Signs: Vital Signs - 24 hr 11/16/24 07:26 11/16/24 08:11 Temperature 97.6 F 97.7 F Pulse Rate 58 50 Respiratory Rate 18 16 Blood Pressure 108/69 113/65 Pulse Oximetry 98 98 Oxygen Delivery Method Room Air Room Air BMI result Body Mass Index 19.4 Vital signs have been reviewed and appear to be correct. Blood pressure elevated. Heart rate normal. Respiratory rate normal. Temperature normal. Oxygen saturation normal. Appearance: Alert. Oriented X3. No acute distress. Head: Normal external exam. Normocephalic. Atraumatic. No Sears signs noted. No raccoon eyes noted Eyes: PERRLA. EOMI. Conjunctiva and sclera normal. Eyelids normal. ENT: TM's Normal. Pharynx normal. Uvula midline. Moist mucous membranes. No trismus noted. No drooling noted. No muffled voice noted. Neck: Normal inspection. Neck supple. FROM. No adenopathy. Thyroid Normal. No meningeal signs. No neck mass noted. CVS: Normal heart rate and rhythm. Heart sound normal. No murmurs noted. Pulses normal throughout. Respiratory: No respiratory distress. Painless inspiration. Breath sounds normal. No wheezes/rales/rhonchi noted. Chest nontender. No accessory muscle usage noted or decreased air movement noted. Abdomen: Soft and nontender. Bowel sounds normal in all 4 quadrants. No distention noted. No organomegaly noted. No visible injury noted. Back: No CVA tenderness. Full range of motion noted. Skin: Skin warm and dry. Normal skin color. Normal skin turgor. No rashes/lesions/lacerations noted. Extremities: No lower extremity edema. Extremities exhibit normal range of motion. Extremities nontender. Neuro: Oriented X 3. Cranial nerve exam: II-XII are grossly intact No motor deficit. No sensory deficit. Reflexes normal. Course Reevaluation(s) Reevaluation #1: Patient has feels better now, no nausea, no vomiting repeat abdominal exam showed no abdominal tenderness, no guarding, no rebound tenderness, no right lower quadrant tenderness. Patient will be discharged with instruction of return to the emergency department if worsening of his abdominal pain, or migration of the pain to the right lower quadrant, or no complete resolution of abdominal pain in 2 days. Time: 09:00 Medical Decision Making Differential Diagnosis Differential Diagnoses: The differential diagnosis associated with the presentation includes (Acute appendicitis, acute gastritis, gastroenteritis, kidney stone, UTI, acute pancreatitis, acute hepatitis, gallbladder disease.) Admission/Observation Consideration of admission/observation: Escalation of care including admission/observation considered Lab Data MDM Lab Attestation statement: I reviewed the patient's lab results. 11/16/24 07:35 11/16/24 07:35 Labs: Lab Results 11/16/24 Range/Units 07:35 WBC 4.5 L (4.8-10.8) X10*3/uL RBC 4.43 L (4.60-5.80) X10*6/uL Hgb 14.0 (14.0-18.0) g/dl Hct 39.9 L (42.0-52.0) % MCV 90.1 (80.0-98.0) fL MCH 31.6 (27.0-33.0) pg MCHC 35.1 (31.0-36.0) g/dl RDW 12.0 (11.0-16.0) % Plt Count 194 (160-400) X10*3/uL MPV 10.5 (9.4-12.4) fL Immature Gran % (Auto) 0.2 (0.0-0.4) % Neut % (Auto) 49.6 (45-73) % Lymph % (Auto) 36.7 (20-40) % [place] % (Auto) 9.1 (2-11) % Eos % (Auto) 3.3 (0-4) % Baso % (Auto) 1.1 (0-2) % Lymph # (Auto) 1.7 (1.2-4.9) X10*3/uL [place] # (Auto) 0.4 (0.1-1.2) X10*3/uL Eos # (Auto) 0.2 (0.0-0.4) X10*3/uL Baso # (Auto) 0.1 (0.0-0.2) X10*3/uL Abs Immat Gran (auto) 0.01 (0.00-0.03) X10*3/uL Absolute Neuts (auto) 2.2 (2.0-8.3) x10*3/uL Absolute Nucleated RBC 0.000 (0.0-0.012) X10*3/uL Nucleated RBC % (auto) 0.0 (0.0-0.2) /100WBC Sodium 142 (135-145) mmol/L Potassium 4.3 (3.3-5.1) mmol/L Chloride 112 H (96-108) mmol/L Carbon Dioxide 25 (22-29) mmol/L Anion Gap 9 L (12-20) BUN 11 (9-16) mg/dL Creatinine 0.66 (0.5-1.4) mg/dL Estim Creat Clear Calc 129.5 Estimated GFR > 60 Random Glucose 96 (60-115) mg/dL Calcium 8.9 (8.4-10.2) mg/dL Total Bilirubin 0.4 (0.0-1.0) mg/dL Direct Bilirubin 0.2 (0.0-0.5) mg/dL AST 17 (5-37) U/L ALT 11 (0-40) U/L Alkaline Phosphatase 61 (39-117) U/L Total Protein 6.6 (6.5-8.0) g/dL Albumin 4.2 (3.5-5.0) g/dL Lipase 17 (8-78) U/L Discharge Plan Discharge Clinical Impression: Abdominal pain Patient Disposition: Home, Self-Care Instructions: Acute Abdominal Pain (DC) Additional Instructions: Return to the ED if worsening of your symptoms or abdominal pain is not improving. Prescriptions: No Action naproxen [Naprosyn] 500 mg tablet 500 mg PO BID Qty: 10 0RF levofloxacin 500 mg tablet 500 mg PO DAILY Qty: 9 0RF cephalexin 500 mg capsule 500 mg PO QID 5 Days Qty: 20 0RF ibuprofen 600 mg tablet 600 mg PO Q6H PRN (Reason: pain) Qty: 30 0RF methocarbamol 750 mg tablet 750 mg PO Q8H PRN (Reason: muscle spasm) 3 Days Qty: 9 0RF lidocaine [AsperFlex (lidocaine)] 4 % adhesive patch,medicated 1 patch topical DAILY PRN (Reason: pain) Qty: 30 0RF Referrals: Abad Varela MD [Primary Care Provider] - Print Language: Serbian
[2024-11-16] MEDS: Ondansetron ODT 4 MG TAB.RAPDIS TRANSLINGU (08:32)
[2024-11-16] MEDS: Omeprazole 40 MG CAPSULE.DR PO (08:32)
--- NOTE | 2024-11-16 08:37 | PC.NURSE ---
Pt refuses IV access or IVF's, stating I don't need that shit . Pt also refused PO Maalox because it tastes nasty
[2024-11-16 08:38] LABS: Appearance Urine Turbid; Color Urine Yellow; Glucose Urine UA Negative (Negative); Leukocyte Esterase Urine Negative (Negative); Nitrite Urine Negative (Negative); Specific Gravity - Urine >= 1.030 (1.005-1.025); Urine Blood Negative (Negative); Urine Ketones Trace mg/dL (Negative); Urine Protein Trace mg/dL (Neg-Trace)
--- NOTE | 2024-11-16 09:09 | PC.NURSE ---
Pt tolerating PO fluids at this time; denies abd pain
== END 2024-11-16 09:23 | disposition home or self-care (01) ==
PROVIDERS: Emergency Provider Emergency Medicine; PCP Pediatrics
DX: R10.9 Unspecified abdominal pain (principal); Z79.899 Other long term (current) drug therapy
CPT/HCPCS: 36415; 80048; 80076; 81003; 83690; 85025; 99283; 99284

== ENCOUNTER 2024-11-25 06:18 | Emergency (ER) | payer OTHER, SELFPAY ==
[2024-11-25 06:20] VITALS: BP 108/61; PULSE 54; RESP 12; TEMP 36.4; O2SAT 96; BMI 18.9
--- NOTE | 2024-11-25 07:03 | ED_ITS ---
HPI - Headache General Chief Complaint: Headache Stated Complaint: Headache Time Seen by Provider: 11/25/24 07:01 Source: patient and old records reviewed Mode of arrival: ambulatory Limitations: no limitations History of Present Illness ED Provider: JOSE CESAR Narrative: 19 year old male with PMHx of ADHD, and testicular torsion presents to the ED today for concerns of covid and wanting covid testing. He states he works at [employer] and is around a large volume of people and is worried he will expose his co workers to covid. He states he has a very mild headache and general malaise that started yesterday (11/24/2024). He denies fever, sore throat, cough, chills, nausea, vomiting, diarrhea. MD elicited complaint: headache Onset (ago): day(s) (one ) Onset description: gradually Location: left Severity: mild Quality & Timing: dull Exacerbating factors: none Relieving factors: nothing Associated symptoms: none Related Data Previous Rx's ?Medication ?Instructions ?Recorded levofloxacin 500 mg tablet 500 mg PO DAILY #9 tabs 11/10/21 naproxen 500 mg tablet (Naprosyn) 500 mg PO BID #10 tabs 11/10/21 ibuprofen 600 mg tablet 600 mg PO Q6H PRN pain #30 tabs 05/11/24 lidocaine 4 % topical patch 1 patch topical DAILY PRN pain #30 05/11/24 (AsperFlex (lidocaine)) ea methocarbamol 750 mg tablet 750 mg PO Q8H PRN muscle spasm 3 05/11/24 days #9 tabs cephalexin 500 mg capsule 500 mg PO QID 5 days #20 caps 08/10/24 Allergies Allergy/AdvReac Type Severity Reaction Status Date / Time No Known Allergies Allergy Verified 11/25/24 06:22 Review of Systems Review of Systems: Constitutional : No Fever, No Chills, No Fatigue ENT/Mouth : No sore throat, No Rhinorrhea Eyes: No Eye Pain, No Swelling, No Redness Cardiovascular : No Chest Pain, No SOB, No Dyspnea on Exertion Respiratory : No Cough, No Sputum Gastrointestinal : No Nausea, No Vomiting, No Diarrhea, No abdominal Pain Genitourinary : No Dysuria, No Urinary Frequency, No Hematuria, Musculoskeletal : No joint pain, No Myalgias, No Joint Swelling Skin : No Skin Lesions, No rash Neuro : No Weakness, No Numbness, No Dizziness, positive Headache All other systems reviewed and are negative Yes all other systems are reviewed and are negative [facility] Past Medical History Attestation statement: The following information was validated with the patient. Medical History ADHD Social History Social History Alcohol intake: never Substance Use Type: Marijuana Advance Directives: No Advance Directives Information Provided: Yes Do you have a plan to hurt others: No Plan Physical Exam Vital Signs: Vital Signs: Last Vital Signs Temp 97.5 F 11/25/24 08:23 Pulse 54 11/25/24 08:23 Resp 12 11/25/24 08:23 BP 108/61 11/25/24 08:23 Pulse Ox 96 11/25/24 08:23 O2 Del Method Room Air 11/25/24 08:23 BMI result Body Mass Index 18.9 Appearance: Alert. Oriented X3. No acute distress. Eyes: Pupils equal, round and reactive to light. ENT: Pharynx normal. Neck: Normal inspection. Neck supple. CVS: Normal heart rate and rhythm. Pulses normal. Respiratory: No respiratory distress. Breath sounds normal. Abdomen: Soft and nontender. Skin: Skin warm and dry. Normal skin color. Normal skin turgor. Extremities: No lower extremity edema. No calf ttp Neuro: Oriented X 3. No motor deficit. No sensory deficit. CN2-12 intact Medical Decision Making Medical Decision Making MDM Narrative: 19 year old male with PMHx of ADHD, and testicular torsion presents to the ED today for concerns of covid and wanting covid testing. He states he works at [employer] and is around a large volume of people and is worried he will expose his co workers to covid. He states he has a very mild headache and general malaise that started yesterday (11/24/2024). He denies fever, sore throat, cough, chills, nausea, vomiting, diarrhea. He is not toxic in no sig pain has no meningeal signs doubt WANT AD CLERK infection or SAH. Will swab for COVID/Flu/RSV. Patient denying any other symptoms. Most likely viral process. Differential Diagnosis Differential Diagnoses: The differential diagnosis associated with the presentation includes COVID, flu, viral process Admission/Observation Consideration of admission/observation: Escalation of care including admission/observation considered not toxic can be managed as outpaient Lab Data MDM Lab Attestation statement: I reviewed the patient's lab results. Labs: Lab Results 11/25/24 Range/Units 07:16 Influenza Type A (PCR) NEGATIVE (Negative) Influenza Type B (PCR) NEGATIVE (Negative) RSV RNA Qual (PCR) NEGATIVE (Negative) SARS-CoV-2 RNA (RT-PCR) NEGATIVE (Negative) External Record Review External record reviewed: Outpatient record Prescription Management I considered prescription management with: Other Discharge Plan Discharge Clinical Impression: Tension headache Patient Disposition: Home, Self-Care Instructions: Acute Headache (ED) Additional Instructions: rest and stay hydrated take tylenol or motrin as needed for pain return for any worsening symptoms or concerns. covid, flu, rsv negative Prescriptions: No Action naproxen [Naprosyn] 500 mg tablet 500 mg PO BID Qty: 10 0RF levofloxacin 500 mg tablet 500 mg PO DAILY Qty: 9 0RF cephalexin 500 mg capsule 500 mg PO QID 5 Days Qty: 20 0RF ibuprofen 600 mg tablet 600 mg PO Q6H PRN (Reason: pain) Qty: 30 0RF methocarbamol 750 mg tablet 750 mg PO Q8H PRN (Reason: muscle spasm) 3 Days Qty: 9 0RF lidocaine [AsperFlex (lidocaine)] 4 % adhesive patch,medicated 1 patch topical DAILY PRN (Reason: pain) Qty: 30 0RF Stand Alone Forms: Work/School Release Interventions: ED Discharge Assessment Last Done: 11/25/24 08:23 Discharge Date/Time: 11/25/24 08:24 Print Language: Kazakh
[2024-11-25 07:57] LABS: Influenza A PCR NEGATIVE (Negative); Influenza B PCR NEGATIVE (Negative); Resp Syncy Virus RNA Qual PCR NEGATIVE (Negative); SARS COV2 PCR INHOUSE NEGATIVE (Negative)
[2024-11-25 08:23] VITALS: BP 108/61; PULSE 54; RESP 12; TEMP 36.4; O2SAT 96
== END 2024-11-25 08:24 | disposition home or self-care (01) ==
PROVIDERS: Emergency Provider Emergency Medicine; PCP Pediatrics
DX: G44.209 Tension-type headache, unspecified, not intractable (principal); Z03.818 Encounter for observation for suspected exposure to other biological agents ruled out
CPT/HCPCS: 0241U; 99282; 99283

== ENCOUNTER 2024-12-02 10:10 | Emergency (ER) | payer OTHER, SELFPAY ==
[2024-12-02 10:13] VITALS: BP 114/69; PULSE 63; RESP 16; TEMP 36.8; O2SAT 97; BMI 18.7
--- OUTSIDE RECORDS SUMMARY | 2024-12-02 10:25 | XMS_ITS | Encounter Summary ---
Author Organization [facility] Address [address] [place] [address] Phone Care Team Providers Care Store Detective Name Role Phone ProviderMarcel MD Primary Care Provider [phone] Encounter Details Date Type Department Care Team (Late st Contact Info) Description 09/20/2014 Documentation [facility] [place] Family Medicine [address] [place] [address] Family Medicine, Physician [address] [place], [place] [id number] Social History Tobacco Use Types Packs/Day Years [...] filedocumented in this encounter Care Teams Store Detective Relationship Specialty Start Date End Date Provider, MD Marcel [address] [place] [address] PCP - General Pediatrics 02/04/24 documented as of this encounter
--- OUTSIDE RECORDS SUMMARY | 2024-12-02 10:25 | XMS_ITS | Encounter Summary ---
Author Organization [facility] Address [address] [place] [address] Phone Care Team Providers Care Photography Editor Name Role Phone ProviderMarcel MD Primary Care Provider [phone] Encounter Details Date Type Department Care Team (Late st Contact Info) Description 12/25/2009 Documentation [facility] [place] [address] [place] [address] Family Medicine, Physician [address], [place] [address] Social History Tobacco Use Types Packs/Day Years [...] on filedocumented in this encounter Care Teams Photography Editor Relationship Specialty Start Date End Date Provider, MD Marcel [address] [place] [address] PCP - General Pediatrics 02/04/24 documented as of this encounter
--- OUTSIDE RECORDS SUMMARY | 2024-12-02 10:25 | XMS_ITS | Encounter Summary ---
Author Organization [facility] Address [address] [place] [address] Phone Care Team Providers Care Soaking Tank Worker Name Role Phone Provider, Marcel VIZCAINO Primary Care Provider [phone] Reason for Visit * Reason Comments ED Admission Encounter Details Date Type Department Care Team (Late st Contact Info) Description 12/02/2024 10:10 AM EDT - Present Hospital Encounter [facility] - Patient Ping Social History [...] on filedocumented in this encounter Care Teams Soaking Tank Worker Relationship Specialty Start Date End Date Provider, MD Marcel [address] [place] [phone] PCP - General Pediatrics 02/04/24 documented as of this encounter
--- OUTSIDE RECORDS SUMMARY | 2024-12-02 10:25 | XMS_ITS | Encounter Summary ---
Author Organization [facility] Address [address] [place] [address] Phone Care Team Providers Care Joint Finisher Name Role Phone ProviderMarcel MD Primary Care Provider [phone] Encounter Details Date Type Department Care Team (Late st Contact Info) Description 01/08/2016 Documentation [facility] [place] [address] [place] [address] Family Medicine, Physician [address] [place], [place] [address] Social History Tobacco Use Types Packs/Day Years [...] on filedocumented in this encounter Care Teams Joint Finisher Relationship Specialty Start Date End Date Provider, MD Marcel [address] [place] [address] PCP - General Pediatrics 02/04/24 documented as of this encounter
--- OUTSIDE RECORDS SUMMARY | 2024-12-02 10:25 | XMS_ITS | Encounter Summary ---
Author Organization [facility] Address [address] [place] [address] Phone Care Team Providers Care Packager Or Packer And Weigher Name Role Phone Provider, Marcel VIZCAINO Primary Care Provider [phone] Encounter Details Date Type Department Care Team (Late st Contact Info) Description 04/01/2017 Conversion Encounter [facility] [place] [address] [place], [place] [id number] Social History Tobacco Use Types Packs/Day Years [...] on filedocumented in this encounter Care Teams Packager Or Packer And Weigher Relationship Specialty Start Date End Date Provider, MD Marcel [address] [place] [address] PCP - General Pediatrics 02/04/24 documented as of this encounter
--- OUTSIDE RECORDS SUMMARY | 2024-12-02 10:25 | XMS_ITS | Encounter Summary ---
Author Organization [facility] Address [address] [place] [address] Phone Care Team Providers Care E Learning Developer Name Role Phone ProviderMarcel MD Primary Care Provider [phone] Encounter Details Date Type Department Care Team (Late st Contact Info) Description 01/09/2016 Documentation [facility] [place] Medicine [address] [place] [address] Family Medicine, Physician [address] [place], [place] [address] Social History Tobacco Use Types Packs/Day Years [...] on filedocumented in this encounter Care Teams E Learning Developer Relationship Specialty Start Date End Date Provider, MD Marcel [address] [place] [address] PCP - General Pediatrics 02/04/24 documented as of this encounter
--- OUTSIDE RECORDS SUMMARY | 2024-12-02 10:25 | XMS_ITS | Encounter Summary ---
Author Organization [facility] Address [address] [place] [address] Phone Care Team Providers Care Call Centre Supervisor Name Role Phone ProviderMarcel MD Primary Care Provider [phone] Encounter Details Date Type Department Care Team (Late st Contact Info) Description 01/08/2016 [place] [facility] [place] [facility] [place] [address] [place] [address] Family Medicine, Physician [address], [place] [phone] Social History Tobacco Use Types Packs/Day Years [...] on filedocumented in this encounter Care Teams Call Centre Supervisor Relationship Specialty Start Date End Date Provider, MD Marcel [address] [place] [address] PCP - General Pediatrics 02/04/24 documented as of this encounter
--- OUTSIDE RECORDS SUMMARY | 2024-12-02 10:25 | XMS_ITS | Encounter Summary ---
Author Organization [facility] Address [address] [place] [address] Phone Care Team Providers Care Linux Architect Name Role Phone Provider, Marcel VIZCAINO Primary Care Provider [phone] Reason for Visit * Reason Onset Date Comments ER f/u 10/18/2024 Encounter Details Date Type Department Care Team (Late st Contact Info) Description 10/18/2024 Telephone [facility] [place] [address] [place] [address] Rhonda Ordoñez LPN [address] [place] [address] ER f/u Social History Tobacco Use Types [...] have him speak with Suzie or another [facility] if she is unavailable. We must impress upon him that he needs to come into the office and be seen and not go to the ER so often unless it's a true emergency. * Telephone Encounter - Rhonda Ordoñez LPN - 10/18/2024 11:12 AM EST ER f/u call placed. VM left asking pt to call. Pt seen at [facility] [place] on 10/14 for headache. This will be his 5th ER visit in 2024, in addition to many in 2023. See phone notes 09/[address] Ruiz and TERI Larsen. Notes printed for scanning. EH documented in this encounter Plan of Treatment Not on file documented as of this encounter Visit Diagnoses Not on filedocumented in this encounter Care Teams Linux Architect Relationship Specialty Start Date End Date Provider, MD Marcel [address] [place] [phone] PCP - General Pediatrics 02/04/24 documented as of this encounter
--- OUTSIDE RECORDS SUMMARY | 2024-12-02 10:25 | XMS_ITS | Encounter Summary ---
Author Organization [facility] Address [address] [place] [address] Phone Care Team Providers Care Banding Machine Operator Name Role Phone ProviderMarcel MD Primary Care Provider [phone] Encounter Details Date Type Department Care Team (Late st Contact Info) Description 07/03/2010 Documentation [facility] [place] Family Medicine [address] [place] [address] Family Medicine, Physician [address], [place] [address] Social History Tobacco Use Types Packs/Day Years [...] on filedocumented in this encounter Care Teams Banding Machine Operator Relationship Specialty Start Date End Date Provider, MD Marcel [address] [place] [phone] PCP - General Pediatrics 02/04/24 documented as of this encounter
--- NOTE | 2024-12-02 10:34 | ED.GENADULT ---
HPI - General Adult General Chief complaint: General Medical Stated complaint: wants covid test Time Seen by Provider: 12/02/24 10:28 Source: patient Mode of arrival: ambulatory Limitations: no limitations History of Present Illness ED Provider: Raine Higgins PA-C HPI narrative: 19 yo male presenting to the ER for a COVID test. He works for [email or web address] and some of his coworkers have been sick. He has a baby at home so just want to make sure I dont have COVID. He is asymptomatic and denies runny nose, cough, SOB, fever, chills, headache, body aches, N/V/D or abdominal pain. MD complaint: covid test, no symptoms Associated symptoms: denies other symptoms Treatments prior to arrival: none Related Data Previous Rx's ?Medication ?Instructions ?Recorded levofloxacin 500 mg tablet 500 mg PO DAILY #9 tabs 11/10/21 naproxen 500 mg tablet (Naprosyn) 500 mg PO BID #10 tabs 11/10/21 ibuprofen 600 mg tablet 600 mg PO Q6H PRN pain #30 tabs 05/11/24 lidocaine 4 % topical patch 1 patch topical DAILY PRN pain #30 05/11/24 (AsperFlex (lidocaine)) ea methocarbamol 750 mg tablet 750 mg PO Q8H PRN muscle spasm 3 05/11/24 days #9 tabs cephalexin 500 mg capsule 500 mg PO QID 5 days #20 caps 08/10/24 Allergies Allergy/AdvReac Type Severity Reaction Status Date / Time No Known Allergies Allergy Verified 12/02/24 10:15 Review of Systems Review of Systems: Yes all other systems are reviewed and are negative [facility] Past Medical History Medical History ADHD Social History Social History Alcohol intake: never Substance Use Type: Marijuana Advance Directives: No Advance Directives Information Provided: No Physical Exam ED Vital Signs: Vital Signs - 24 hr 12/02/24 10:13 Temperature 98.2 F Pulse Rate 63 Respiratory Rate 16 Blood Pressure 114/69 Pulse Oximetry 97 BMI result Body Mass Index 18.7 Appearance: Alert. Oriented X3. No acute distress. HEENT: normal inspection CVS: Normal heart rate and rhythm. Respiratory: No respiratory distress. lugns CTAB Skin: Skin warm and dry. Normal skin color. No rashes. Extremities: normal insepction Neuro: Oriented X 3. grossly normal, nonfocal Medical Decision Making Medical Decision Making [facility] Narrative: 19 y/o asymptomaic male presenting for a COVID test. He states he works at [employer] where people have had COVID VS are stable and exam is unremarkable. lungs clear no symptoms of URI or COVID COVID negative. demanding work note which was refused as patient is not ill, does not have COVID. escorted out by security. patient counseled on appropriate uses of the emergency department. stable for discharge. Differential Diagnosis Differential Diagnoses: The differential diagnosis associated with the presentation includes anxiety, COVID Lab Data [facility] Lab Attestation statement: I reviewed the patient's lab results. Labs: Lab Results 12/02/24 Range/Units 10:22 COVID-19 ([facility]) Negative (Negative) COVID-19 Clin Com See Note External Record Review External record reviewed: Prior outpatient labs Prescription Management I considered prescription management with: Antiviral Critical Care Time Critical Care Time Critical Care Time: No Discharge Plan Discharge Clinical Impression: Normal exam Patient Disposition: Home, Self-Care Instructions: Normal Exam (ED) Additional Instructions: in the future please purchase a COVID test from your local pharmacy rather than using Emergency Room resources you are not sick and can go to work as usual today YOU DO NOT HAVE COVID Prescriptions: No Action naproxen [Naprosyn] 500 mg tablet 500 mg PO BID Qty: 10 0RF levofloxacin 500 mg tablet 500 mg PO DAILY Qty: 9 0RF cephalexin 500 mg capsule 500 mg PO QID 5 Days Qty: 20 0RF ibuprofen 600 mg tablet 600 mg PO Q6H PRN (Reason: pain) Qty: 30 0RF methocarbamol 750 mg tablet 750 mg PO Q8H PRN (Reason: muscle spasm) 3 Days Qty: 9 0RF lidocaine [AsperFlex (lidocaine)] 4 % adhesive patch,medicated 1 patch topical DAILY PRN (Reason: pain) Qty: 30 0RF Print Language: Chinese
[2024-12-02 10:42] LABS: COVID-19 Test Negative (Negative); IDNOW Serial# 58CA691E
[2024-12-02 11:15] VITALS: BP 114/69; PULSE 63; RESP 16; TEMP 36.8; O2SAT 97
== END 2024-12-02 11:17 | disposition home or self-care (01) ==
PROVIDERS: Emergency Provider Emergency Medicine
DX: Z11.52 Encounter for screening for COVID-19 (principal)
CPT/HCPCS: 87635; 99283; 99284

== ENCOUNTER 2024-12-21 10:09 | Emergency (ER) | payer OTHER, SELFPAY ==
[2024-12-21 10:18] VITALS: BP 108/66; PULSE 72; RESP 14; TEMP 36.6; O2SAT 98; BMI 18.5
[2024-12-21 10:24] VITALS: BP 117/70; PULSE 63; RESP 15; TEMP 37; O2SAT 99
--- NOTE | 2024-12-21 10:27 | MHC.EDTECH ---
lower back pain sharp pain for approximately 2 days. patient did not take any medication for pain prior to arrival. MARCODA
--- NOTE | 2024-12-21 10:28 | ED_ITS ---
HPI - General Adult General Chief complaint: Back Pain/Injury Stated complaint: Lower back pain Time Seen by Provider: 12/21/24 10:27 Source: patient Mode of arrival: ambulatory Limitations: no limitations History of Present Illness ED Provider: Rosa Hollis PA-C HPI narrative: Patient is a 19 year old assigned male at with a medical history of ADHD presenting to the emergency department today with low back pain. Patient states that over the last few days he has had low back pain. Patient states that he works at [employer] and has been working 6+ days in a row frequently with heavy lifting. Patient denies any dizziness, lightheadedness, abdominal pain, nausea, vomiting, fever, chills, blurry vision, double vision, loss of vision, chest pain, difficulty breathing, shortness of breath, night sweats, pain with urination, increased urinary frequency, increased urinary urgency, blood in his urine or stool, syncope or a near syncopal episode, recent trauma or falls, bowel incontinence, bladder incontinence, or any other complaints at this time. Onset (ago): day(s) Relieving factors: none Exacerbating factors: none Associated symptoms: denies other symptoms Treatments prior to arrival: none Related Data Previous Rx's ?Medication ?Instructions ?Recorded levofloxacin 500 mg tablet 500 mg PO DAILY #9 tabs 11/10/21 naproxen 500 mg tablet (Naprosyn) 500 mg PO BID #10 tabs 11/10/21 ibuprofen 600 mg tablet 600 mg PO Q6H PRN pain #30 tabs 05/11/24 lidocaine 4 % topical patch 1 patch topical DAILY PRN pain #30 05/11/24 (AsperFlex (lidocaine)) ea methocarbamol 750 mg tablet 750 mg PO Q8H PRN muscle spasm 3 05/11/24 days #9 tabs cephalexin 500 mg capsule 500 mg PO QID 5 days #20 caps 08/10/24 cyclobenzaprine 5 mg tablet 5 mg PO TID PRN muscle spasm 7 12/21/24 days #21 tabs prednisone 20 mg tablet 20 mg PO DAILY 7 days #7 tabs 12/21/24 Allergies Allergy/AdvReac Type Severity Reaction Status Date / Time No Known Allergies Allergy Verified 12/21/24 10:20 Review of Systems Constitutional: Constitutional: Reports no additional constitutional complaints, Denies chills, Denies fever(s) and Denies night sweats Eyes: Eyes: Reports no additional eye complaints, Denies blurry vision, Denies change in vision, Denies diplopia, Denies eye discharge, Denies loss of vision and Denies eye pain ENT: Denies dizziness Cardiovascular: Cardiovascular: Reports no additional cardiovascular complaints, Denies chest pain, Denies lightheadedness, Denies Loss of Consciousness and Denies dyspnea Respiratory: Respiratory: Reports no additional respiratory complaints and Denies dyspnea Gastrointestinal: Gastrointestinal: Reports no additional gastrointestinal complaints, Denies abdominal pain, Denies melena, Denies hematochezia, Denies change in bowel habits and Denies change in stool character Genitourinary: Genitourinary: Reports no additional male genitourinary complaints, Denies hematuria, Denies oliguria, Denies difficulty urinating, De nies dysuria, Denies urinary frequency, Denies urinary hesitancy, Denies urinary incontinence and Denies urinary urgency Musculoskeletal: Musculoskeletal: Reports no additional musculoskeletal complaints, Reports back pain, Denies numbness and Denies tingling Neurologic: Denies dizziness, Denies loss of vision, Denies numbness and Denies tingling Psychiatric: Psychiatric: Reports no additional psychiatric complaints Endocrine: Endocrine: Reports no additional endocrine complaints Hematologic/Lymphatic: Hematologic/Lymphatic: Reports no additional h ematologic/lymphatic complaints Allergic/Immunologic: Allergic/Immunologic: Reports no additional allergic/immunologic complaints PMFSH Past Medical History Attestation statement: The following information was validated with the patient. Source: old records reviewed and nursing notes reviewed Medical History ADHD Social History Social History Alcohol intake: never Substance Use Type: Marijuana Advance Directives: No Advance Directives Information Provided: Yes Physical Exam ED Vital Signs: Vital Signs - 24 hr 12/21/24 10:18 12/21/24 10:24 12/21/24 11:42 Temperature 97.9 F 98.6 F 98.6 F Pulse Rate 72 63 63 Respiratory Rate 14 15 15 Blood Pressure 108/66 117/70 117/70 Pulse Oximetry 98 99 99 Oxygen Delivery Method Room Air Room Air Room Air BMI result Body Mass Index 18.5 Const General: cooperative, no acute distress, alert and awake Nutritional Appearance: well nourished Orientation/consciousness: patient oriented x3 HENMT Head: Yes normal to inspection and Yes atraumatic Ears: hearing grossly normal bilaterally and external ears normal General nose exam: Normal external nose present, no nasal discharge noted and no epistaxis Face and sinus: Yes normal facial exam, No abrasion and No laceration Mouth: Normal oral and palatal mucosa present, no drooling and no muffled voice Eyes General: appearance normal, both eyes and all related structures Periorbital: periorbital findings normal Eyelids: Yes eyelids normal Conjunctivae: conjunctivae normal Pupils: Equal, round and reactive pupils present EOM: EOMs intact bilaterally Neck Neck: Yes normal visual inspection, Yes full ROM and Yes no lymphadenopathy Resp Effort & Inspection: normal respiratory effort and able to speak in complete sen tences Neuro General: patient oriented x3, moves all extremities and CN's II-XI intact bilaterally Cranial nerves: Yes Equal, round and reactive pupils present Cognition (Neuro): normal cognition Extrem General: Yes normal to inspection, Yes full ROM and Yes capillary refill normal Psych Appearance: grossly normal Mental Status: mental status grossly normal Affect: normal affect Attitude: cooperative Thought process: Normal thought process present Thought content: Normal thought content present Insight: Good insight present (Psych) Medications Administered Discontinued Medications Generic Name Dose Route Start Last Admin Trade Name Michaelq PRN Reason Stop Dose Admin Cyclobenzaprine HCl 5 mg 12/21/24 11:12/21/24 11:29 Cyclobenzaprine Hcl 5 Mg Tablet PO 12/21/24 11:10 5 mg ONCE ONE Administration Ketorolac Tromethamine 15 mg 12/21/24 11:12/21/24 11:30 Ketorolac Tromethamine 15 Mg/Ml Vial IM 12/21/24 11:10 Not Given ONCE ONE Prednisone 20 mg 12/21/24 11:09 12/21/24 11:30 Prednisone 20 Mg Tablet PO 12/21/24 11:10 20 mg ONCE ONE Administration Medical Decision Making Medical Decision Making MDM Narrative: Patient is a 19 year old assigned male at with a medical history of ADHD presenting to the emergency department today with low back pain. Patient's physical exam was unremarkable. Patient's clinical presentation is most consistent with a lumbar strain. I explained my physical exam findings to the patient. I answered all questions asked by the patient. I stressed the importance of the patient taking his medication as directed (either prescribed or as the over the counter packaging recommends). I stressed the importance of the patient following up with his primary care provider. I stressed the importance of the patient returning to the emergency department immediately if his symptoms were to worsen or if he were to develop any dizziness, shortness of breath, difficulty breathing, chest pain, blurry vision, loss of vision, nausea, vomiting, abdominal pain, fever, chills, back pain, or any other complaints. Patient verbalized agreement and understanding with this treatment plan and discharge. Differential Diagnosis Differential Diagnoses: The differential diagnosis associated with the presentation includes Low back pain Lumbar strain Lumbar sprain Admission/Observation Consideration of admission/observation: Escalation of care including admission/observation considered Patient would have been admitted to the hospital had his clinical presentation warranted hospital admission. Tests considered The following testing was considered but not selected: I considered obtaining imaging (x-ray vs. CT) of the lumbar spine however the patient's current clinical presentation and mechanism of injury did not warrant this. I discussed this with the patient who verbalized understanding and agreement. Prescription Management I considered prescription management with: Pain Medication (patient prescribed pain medication) Discharge Plan Discharge Clinical Impression: Strain of lumbar region Patient Disposition: Home, Self-Care Instructions: Muscle Strain (DC), Lower Back Exercises (ED) Additional Instructions: Follow up with your primary care provider. Return to the emergency department immediately if your symptoms worsen or if you develop any numbness, tingling, dizziness, shortness of breath, difficulty breathing, chest pain, blurry vision, loss of vision, nausea, vomiting, abdominal pain, fever, chills, back pain, or any other complaints. Please see the information below about our Patient Portal. If you are not yet enrolled in the [facility] Patient Portal, you will receive an enrollment email invitation following your visit to any [facility] setting. You may also self-enroll in the Patient Portal by visiting our website: [email or web address] The following information is required to access the Patient Portal: - Your [facility] Medical Record Number - Your personal home email address (must match what is in your electronic medical record, Registration staff can assist with this) - Name - Date of Capabilities of the Patient Portal: - Message some providers - View upcoming appointments - Access your health summary, medical history, and visit history - View current conditions and allergies - View procedure and lab results - View your medications, including guidelines, side effects, and precautions - Complete pre-appointment questionnaires requested by your provider - Ready summary reports of your office visits and procedures To access the Patient Portal Mobile Danielle, follow these directions: - Search [employer] in the [employer] Store or [address] [address] [employer] - Download the Danielle - Search for [facility] - Enter your login/password Prescriptions: New cyclobenzaprine 5 mg tablet 5 mg PO TID PRN (Reason: muscle spasm) 7 Days Qty: 21 0RF prednisone 20 mg tablet 20 mg PO DAILY 7 Days Qty: 7 0RF No Action naproxen [Naprosyn] 500 mg tablet 500 mg PO BID Qty: 10 0RF levofloxacin 500 mg tablet 500 mg PO DAILY Qty: 9 0RF cephalexin 500 mg capsule 500 mg PO QID 5 Days Qty: 20 0RF ibuprofen 600 mg tablet 600 mg PO Q6H PRN (Reason: pain) Qty: 30 0RF methocarbamol 750 mg tablet 750 mg PO Q8H PRN (Reason: muscle spasm) 3 Days Qty: 9 0RF lidocaine [AsperFlex (lidocaine)] 4 % adhesive patch,medicated 1 patch topical DAILY PRN (Reason: pain) Qty: 30 0RF Referrals: [facility] Family Medicine [Provider Group] (Call to establish and follow up with a primary care provider. If you already have a primary care provider, please follow up with them.) [facility] Primary Care, Kelsy [Provider Group] (Call to establish and follow up with a primary care provider. If you already have a primary care provider, please follow up with them.) [facility] Primary Care, Za [Provider Group] (Call to establish and follow up with a primary care provider. If you already have a primary care provider, please follow up with them.) [facility] Primary Care, Samir [Provider Group] (Call to establish and follow up with a primary care provider. If you already have a primary care provider, please follow up with them.) [facility] Primary Care, Emerson Martinez [Provider Group] (Call to establish and follow up with a primary care provider. If you already have a primary care provider, please follow up with them.) Stand Alone Forms: Work/School Release Interventions: ED Discharge Assessment Last Done: 12/21/24 11:42 Discharge Date/Time: 12/21/24 11:58 Print Language: Nepali
[2024-12-21] MEDS: Cyclobenzaprine HCl 5 MG TABLET PO (11:29)
[2024-12-21] MEDS: predniSONE 20 MG TABLET PO (11:30)
[2024-12-21 11:42] VITALS: BP 117/70; PULSE 63; RESP 15; TEMP 37; O2SAT 99
--- NOTE | 2024-12-21 11:46 | PC.NURSE ---
Pt DC to home ambulates well to WR - pain 12/23 DC instructions reviewed verbalizes understanding. No other complaints
--- OUTSIDE RECORDS SUMMARY | 2024-12-21 11:50 | XMS_ITS | Encounter Summary ---
Author Organization [facility] Address [address] [place] [address] Phone Care Team Providers Care Senior Actuarial Analyst Name Role Phone Provider, Marcel VIZCAINO Primary Care Provider [phone] Encounter Details Date Type Department Care Team (Late st Contact Info) Description 04/01/2017 Conversion Encounter [facility] [address] [place], [place] [id number] Social History Tobacco Use Types Packs/Day Years [...] filedocumented in this encounter Care Teams Senior Actuarial Analyst Relationship Specialty Start Date End Date Provider, MD Marcel [address] [place] [address] PCP - General Pediatrics 02/04/24 documented as of this encounter
--- OUTSIDE RECORDS SUMMARY | 2024-12-21 11:50 | XMS_ITS | Encounter Summary ---
Author Organization [facility] Address [address] [place] [address] Phone Care Team Providers Care Pathology Transcriptionist Name Role Phone ProviderMarcel MD Primary Care Provider [phone] Encounter Details Date Type Department Care Team (Late st Contact Info) Description 01/08/2016 Documentation [facility] Family Medicine [address] [place] [address] Family Medicine, Physician [address], [place] [id number] Social History Tobacco Use Types Packs/Day Years [...] on filedocumented in this encounter Care Teams Pathology Transcriptionist Relationship Specialty Start Date End Date Provider, MD Marcel [address] [place] [address] PCP - General Pediatrics 02/04/24 documented as of this encounter
--- OUTSIDE RECORDS SUMMARY | 2024-12-21 11:50 | XMS_ITS | Encounter Summary ---
Author Organization [facility] Address [address] [place] [address] Phone Care Team Providers Care Value Analysis Coordinator Name Role Phone Provider, Marcel VIZCAINO Primary Care Provider [phone] Reason for Visit * Reason Onset Date Comments ER f/u 10/18/2024 Encounter Details Date Type Department Care Team (Late st Contact Info) Description 10/18/2024 Telephone [facility] [address] [place] [address] Rhonda Ordoñez LPN [address] [place] [address] ER f/u Social History Tobacco Use Types [...] have him speak with Suzie or another [facility] if she is unavailable. We must impress upon him that he needs to come into the office and be seen and not go to the ER so often unless it's a true emergency. * Telephone Encounter - Rhonda Ordoñez LPN - 10/18/2024 11:12 AM EST ER f/u call placed. VM left asking pt to call. Pt seen at [facility] ER on 10/14 for headache. This will be his 5th ER visit in 2024, in addition to many in 2023. See phone notes 09/[address] Ruiz and TERI Larsen. Notes printed for scanning. EH documented in this encounter Plan of Treatment Not on file documented as of this encounter Visit Diagnoses Not on filedocumented in this encounter Care Teams Value Analysis Coordinator Relationship Specialty Start Date End Date Provider, MD Marcel [address] [place] [id number] PCP - General Pediatrics 02/04/24 documented as of this encounter
--- OUTSIDE RECORDS SUMMARY | 2024-12-21 11:50 | XMS_ITS | Encounter Summary ---
Author Organization [facility] Address [address] [place] [address] Phone Care Team Providers Care Advertising Dispatch Clerks Supervisor Name Role Phone ProviderMarcel MD Primary Care Provider [phone] Encounter Details Date Type Department Care Team (Late st Contact Info) Description 09/20/2014 Documentation [facility] Family Medicine [address] [place] [address] Family Medicine, Physician [address], [place] [phone] Social History Tobacco Use Types Packs/Day Years [...] on filedocumented in this encounter Care Teams Advertising Dispatch Clerks Supervisor Relationship Specialty Start Date End Date Provider, MD Marcel [address] [place] [address] PCP - General Pediatrics 02/04/24 documented as of this encounter
--- OUTSIDE RECORDS SUMMARY | 2024-12-21 11:50 | XMS_ITS | Encounter Summary ---
Author Organization [facility] Address [address] [place] [address] Phone Care Team Providers Care Hand Assembler For Puller Over Name Role Phone ProviderMarcel MD Primary Care Provider [phone] Encounter Details Date Type Department Care Team (Late st Contact Info) Description 01/09/2016 Documentation [facility] Family Medicine [address] [place] [address] Family Medicine, Physician [address], [place] [address] Social History Tobacco Use Types Packs/Day Years [...] on filedocumented in this encounter Care Teams Hand Assembler For Puller Over Relationship Specialty Start Date End Date Provider, MD Marcel [address] [place] [address] PCP - General Pediatrics 02/04/24 documented as of this encounter
--- OUTSIDE RECORDS SUMMARY | 2024-12-21 11:50 | XMS_ITS | Encounter Summary ---
Author Organization [facility] Address [address] [place] [address] Phone Care Team Providers Care Chain Carrier Name Role Phone ProviderMarcel MD Primary Care Provider [phone] Encounter Details Date Type Department Care Team (Late st Contact Info) Description 07/03/2010 Documentation [facility] [place] [address] [place] [address] Family Medicine, Physician [address], [place] [address] Social History Tobacco Use Types Packs/Day Years [...] on filedocumented in this encounter Care Teams Chain Carrier Relationship Specialty Start Date End Date Provider, MD Marcel [address] [place] [address] PCP - General Pediatrics 02/04/24 documented as of this encounter
--- OUTSIDE RECORDS SUMMARY | 2024-12-21 11:50 | XMS_ITS | Encounter Summary ---
Author Organization [facility] Address [address] [place] [address] Phone Care Team Providers Care Sweep Press Operator Name Role Phone Provider, Marcel VIZCAINO Primary Care Provider [phone] Reason for Visit * Reason Comments ED Admission Encounter Details Date Type Department Care Team (Late st Contact Info) Description 12/21/2024 10:09 AM EDT - Present Emergency [facility] - Patient Ping Social History Tobacco [...] on filedocumented in this encounter Care Teams Sweep Press Operator Relationship Specialty Start Date End Date Provider, MD Marcel [address] [place] [phone] PCP - General Pediatrics 02/04/24 documented as of this encounter
--- OUTSIDE RECORDS SUMMARY | 2024-12-21 11:50 | XMS_ITS | Encounter Summary ---
Author Organization [facility] Address [address] [place] [address] Phone Care Team Providers Care Hedis Review Nurse Name Role Phone ProviderMarecl MD Primary Care Provider [phone] Encounter Details Date Type Department Care Team (Late st Contact Info) Description 01/08/2016 Documentation [facility] [place] Family Medicine [address] [place] [address] Family Medicine, Physician [address], [place] [phone] Social History Tobacco Use Types Packs/Day Years [...] on filedocumented in this encounter Care Teams Hedis Review Nurse Relationship Specialty Start Date End Date Provider, MD Marcel [address] [place] [address] PCP - General Pediatrics 02/04/24 documented as of this encounter
--- OUTSIDE RECORDS SUMMARY | 2024-12-21 11:50 | XMS_ITS | Encounter Summary ---
Author Organization [facility] Address [address] [place] [address] Phone Care Team Providers Care Kennel Helper Name Role Phone ProviderMarcel MD Primary Care Provider Encounter Details Date Type Department Care Team (Late st Contact Info) Description 12/25/2009 Documentation [facility] [place] [facility] [address] [place] [address] Family Medicine, Physician [address], [place] [id number] Social History Tobacco Use Types Packs/Day Years [...] on filedocumented in this encounter Care Teams Kennel Helper Relationship Specialty Start Date End Date Provider, MD Marcel [address] [place] [address] PCP - General Pediatrics 02/04/24 documented as of this encounter
--- OUTSIDE RECORDS SUMMARY | 2024-12-21 11:50 | XMS_ITS | Clinical Summary ---
Author Organization [facility] Address [address] [place] [address] Phone Care Team Providers Care Hearing Aid Fitter Name Role Phone Provider, Marcel VIZCAINO Primary Care Provider [phone] Allergies No known active allergies Medications mometasone [...] Encounters Date Type Department Care Team Description 12/21/2024 10:09 AM EDT - Present Emergency [facility] - Patient Ping 12/02/2024 10:10 AM EDT - 12/02/2024 11:17 AM EDT Emergency [facility] - Patient Ping 11/25/2024 6:18 AM EDT - 11/25/2024 8:24 AM EDT Emergency [facility] - Patient Ping 11/16/2024 7:24 AM EDT - 11/16/2024 9:23 AM EDT Emergency [facility] - Patient Ping 10/26/2024 9:07 PM EDT - 10/27/2024 1:03 AM EDT Emergency [facility] - Patient Ping 10/26/2024 2:10 PM EDT - 10/26/2024 4:35 PM EDT Emergency [facility] - Patient Ping 10/18/2024 Telephone [facility] [place] [address] [place] [address] Rhonda Ordoñez LPN ER f/u 10/14/2024 8:08 AM EST - 10/14/2024 11:52 AM EST [facility] - Patient Ping 09/29/2024 Telephone [facility] [address] [place] [address] Wayne Patino LPN ER Visit 09/28/2024 6:52 AM EST - 09/28/2024 10:35 AM EST Emergency [facility] - Patient Ping from Last 3 Months Immunizations Immunization Administration Dates Next Due COVID-19 Pfizer, hui-nolviaros e, 12+ years 06/04/2022 DTaP 07/05/2006,06/02/2006 DTaP / Hep B / IPV 2004,2004 DTaP 5 11/12/2008, 6,2004,08/06 H1N1 10/08/2009 HPV Vaccine 9 Valent 11/23/2017,05/04/2016 Hep A, ped/adol 03/27/2015,03/23/2014 Hep B, ped/adol 2004,2004 Hib (PRP-T) 09/07/2005, 5,2004,08/06 IPV 11/12/2008,2004 Influenza 06/14/2007 Influenza Split 04/27/2012,09/29/2011 Influenza, injectable, quadr ivalent, preservative free 06/04/2022,04/24/2021,10/05/2017,05/04,05/06/2015 Influenza, injectable, trivalent 06/14/2007,/,06/02/2006 Influenza, intranasal, quadrivalent 05/24/2014,0 05/15/2013 Influenza, intranasal, [...] complete until the patient is discharged.Due to [facility] law, this organization might not be sharing sensitive test results. Procedure Name Priority Date/Time Associated Diagnosis Comments CHLAMYDIA AND GONORRHEA, AMPLIFIED Routine 08/25/2023 11:23 AM EST Screening for chlamydial disease from Last 3 Months or Most Recently Relevant to Health Maintenance Results * Due to [employer] law, this organization might not be sharing sensitive test results. * Chlamydia and Gonorrhoea, Amplified (08/25/2023 11:23 AM EST) Chlamydia Trachomatis, DNA Probe NEGATIVE (NEG) [facility] Comment: No Chlamydia Trachomatis RNA detected in this patient's sample ? (REFERENCE RANGE/NORMAL VALUE: NOT DETECTED) ? Note: This test uses credit card specialist- mediated amplification method to detect rRNA from C. Trachomatis URINE GC AMP PROBE NEGATIVE (NEG) [facility] Comment: No Neisseria Gonorrhoeae RNA detected in this patient's sample ? (REFERENCE RANGE/NORMAL VALUE: NOT DETECTED) ? NOTE: This test uses credit card specialist-mediated amplification method to detect rRNA from [...] without risk of sexual abuse. Consult the [facility] if needed. Contact phone number . Therapeutic failure or success cannot be determined with the Aptima Combo2 assay since nucleic acid may persist following appropriate antimicrobial therapy. The Centers for Disease Control and Prevention (CDC) recommends confirmatory retesting using culture or a different nucleic acid amplification test when positive results occur, if indicated. Testing performed or reported by [facility], a Service of [facility], [address] [place] [id number] Naeem Fernandez MD, Art Therapist [facility]# [id number] Urine (Urine) 08/25/2023 11: 23 AM EST 08/25/2023 8:25 PM EST Abad Varela MD LAB MICROBIOLOGY - GENERAL ORDER FAVIOLA Final Result [facility] from Last 3 Months or Most Recently Relevant to Health Maintenance Insurance [facility] NON PCC ACO Care Teams Hearing Aid Fitter Relationship Specialty Start Date End Date Provider, MD Marcel [address] [place] [id number] PCP - General Pediatrics 02/04/24
== END 2024-12-21 11:58 | disposition home or self-care (01) ==
PROVIDERS: Emergency Provider Emergency Medicine Emergency Medical Services
DX: S39.012A Strain of muscle, fascia and tendon of lower back, initial encounter (principal); X50.0XXA Overexertion from strenuous movement or load, initial encounter; Y93.89 Activity, other specified; Y92.9 Unspecified place or not applicable; Y99.0 Civilian activity done for income or pay
CPT/HCPCS: 99283; 99284

== ENCOUNTER 2025-01-04 09:43 | Emergency (ER) | payer OTHER, SELFPAY ==
--- NOTE | 2025-01-04 09:45 | ED.GENADULT ---
HPI - General Adult General Chief complaint: Abdominal Pain Stated complaint: Lower abd pain Time Seen by Provider: 01/04/25 09:51 Source: patient Mode of arrival: ambulatory Limitations: no limitations History of Present Illness ED Provider: Rosa Hollis PA-C HPI narrative: A 19 y.o male with past medical history of back pain and testicular torsion presents to the ED with a chief complaint of LLQ and left side/ oblique pain. Patient states that he was lifting boxes at work and felt pain in his left side for the last 2 days. He reports that the pain is only present when he moves around, and is not present at rest. Patient denies hearing a snap or pop, and recent falls or traumas. He reports no recent nausea or vomiting associated. Denies urinary or bowel movement changes. Patient denies any testicular pain. MD complaint: LLQ and left oblique pain Onset (ago): day(s) (2) Location: abdomen and left Radiation: non-radiation Pain Consistency: intermittent (when he moves around) Relieving factors: rest Exacerbating factors: movement Associated symptoms: denies other symptoms Treatments prior to arrival: none Related Data Previous Rx's ?Medication ?Instructions ?Recorded levofloxacin 500 mg tablet 500 mg PO DAILY #9 tabs 11/10/21 naproxen 500 mg tablet (Naprosyn) 500 mg PO BID #10 tabs 11/10/21 ibuprofen 600 mg tablet 600 mg PO Q6H PRN pain #30 tabs 05/11/24 lidocaine 4 % topical patch 1 patch topical DAILY PRN pain #30 05/11/24 (AsperFlex (lidocaine)) ea methocarbamol 750 mg tablet 750 mg PO Q8H PRN muscle spasm 3 05/11/24 days #9 tabs cephalexin 500 mg capsule 500 mg PO QID 5 days #20 caps 08/10/24 cyclobenzaprine 5 mg tablet 5 mg PO TID PRN muscle spasm 7 12/21/24 days #21 tabs prednisone 20 mg tablet 20 mg PO DAILY 7 days #7 tabs 12/21/24 Allergies Allergy/AdvReac Type Severity Reaction Status Date / Time No Known Allergies Allergy Verified 01/04/25 09:48 Review of Systems Review of Systems: Yes all other systems are reviewed and are negative Constitutional: Constitutional: Reports no additional constitutional complaints, Denies chills, Denies fever(s) and Denies night sweats Eyes: Eyes: Reports no additional eye complaints, Denies blurry vision, Denies change in vision, Denies diplopia, Denies eye discharge, Denies loss of vision and Denies eye pain ENT: Denies dizziness Cardiovascular: Cardiovascular: Reports no additional cardiovascular complaints, Denies chest pain, Denies lightheadedness, Denies Loss of Consciousness and Denies dyspnea Respiratory: Respiratory: Reports no additional respiratory complaints and Denies dyspnea Gastrointestinal: Gastrointestinal: Reports no additional gastrointestinal complaints, Reports abdominal pain (left lower), Denies melena, Denies hematochezia, Denies change in bowel habits and Denies change in stool character Genitourinary: Genitourinary: Reports no additional male genitourinary complaints, Denies hematuria, Denies oliguria, Denies difficulty urinating, Denies dysuria, Denies urinary frequency, Denies urinary hesitancy, Denies urinary incontinence and Denies urinary urgency Musculoskeletal: Musculoskeletal: Reports no additional musculoskeletal complaints, Reports back pain, Reports myalgias, Denies numbness and Denies tingling Neurologic: Denies dizziness, Denies loss of vision, Denies numbness and Denies tingling Psychiatric: Psychiatric: Reports no additional psychiatric complaints Endocrine: Endocrine: Reports no additional endocrine complaints Hematologic/Lymphatic: Hematologic/Lymphatic: Reports no additional hematologic/lymphatic complaints Allergic/Immunologic: Allergic/Immunologic: Reports no additional allergic/immunologic complaints PMFSH Past Medical History Attestation statement: The following information was validated with the patient. Source: old records reviewed and nursing notes reviewed Medical History ADHD Social History Social History Alcohol intake: never Substance Use Type: Marijuana Advance Directives: No Advance Directives Information Provided: Yes Physical Exam ED Vital Signs: Vital Signs - 24 hr 01/04/25 09:46 01/04/25 10:05 01/04/25 11:38 Temperature 98.3 F 98.2 F 98.2 F Pulse Rate 56 59 59 Respiratory Rate 18 16 16 Blood Pressure 119/71 102/62 102/62 Pulse Oximetry 99 98 98 Oxygen Delivery Method Room Air Room Air Room Air BMI result Body Mass Index 17.6 Const General: cooperative, no acute distress, alert and awake Nutritional Appearance: well nourished Orientation/consciousness: patient oriented x3 HENMT Head: Yes normal to inspection and Yes atraumatic Ears: hearing grossly normal bilaterally and external ears normal General nose exam: Normal external nose present, no nasal discharge noted and no epistaxis Face and sinus: Yes normal facial exam, No abrasion and No laceration Mouth: Normal oral and palatal mucosa present, no drooling and no muffled voice Eyes General: appearance normal, both eyes and all related structures Periorbital: periorbital findings normal Eyelids: Yes eyelids normal Conjunctivae: conjunctivae normal Pupils: Equal, round and reactive pupils present EOM: EOMs intact bilaterally Neck Neck: Yes normal visual inspection, Yes full ROM and Yes no lymphadenopathy Resp Effort & Inspection: normal respiratory effort and able to speak in complete sentences GI Inspection: Yes normal to inspection Palpation (GI): not soft, not firm, nontender, no guarding and not rigid Skin General skin exam: no rashes or lesions noted Neuro General: patient oriented x3, moves all extremities and CN's II-XI intact bilaterally Cranial nerves: Yes Equal, round and reactive pupils present Cognition (Neuro): normal cognition Extrem General: Yes normal to inspection, Yes full ROM and Yes capillary refill normal Psych Appearance: grossly normal Mental Status: mental status grossly normal Affect: normal affect Attitude: cooperative Thought process: Normal thought process present Thought content: Normal thought content present Insight: Good insight present (Psych) Course Course Course Narrative: This is a rapid medical exam performed by Tatum Ortiz NP: Additional HPI, ROS, PE not included below will be deferred to primary provider. Patient is a 19-year-old male with history of ADHD presenting to the emergency department with complaint of left lower abdominal pain x 2 days. Began after lifting at work at [employer], worse with movement. State his mom was concerned about appendicitis. Plan: Will start with labs and UA Medical Decision Making Medical Decision Making MDM Narrative: Patient is a 19 year old assigned male at with a history of testicular torsion, ADHD, and mechanical back pain presenting to the emergency department today with left lower abdominal / oblique pain with movement. Patient's physical exam was unremarkable. Patient's blood work was unremarkable. Patient's urine showed no acute process. Patient's clinical presentation is most consistent with an abdominal muscle strain. I explained my physical exam findings as well as all test results to the patient. I answered all questions asked by the patient. I stressed the importance of the patient taking his medication as directed (either prescribed or as the over the counter packaging recommends). I stressed the importance of the patient following up with his primary care provider and given this was a work place injury - work connection. I stressed the importance of the patient returning to the emergency department immediately if his symptoms were to worsen or if he were to develop any dizziness, shortness of breath, difficulty breathing, chest pain, blurry vision, loss of vision, nausea, vomiting, abdominal pain, fever, chills, back pain, or any other complaints. Patient verbalized agreement and understanding with this treatment plan and discharge. Differential Diagnosis Differential Diagnoses: The differential diagnosis associated with the presentation includes LLQ abdominal muscle strain / sprain Admission/Observation Consideration of admission/observation: Escalation of care including admission/observation considered Patient would have been admitted to the hospital had his work up had any findings where hospital admission was appropriate and his clinical presentation warranted hospital admission. Lab Data [facility] Lab Attestation statement: I reviewed the patient's lab results. My interpretation of these results are in the [facility] Rationale portion of this note. 01/04/25 10:14 01/04/25 10:14 Labs: Lab Results 01/04/25 01/04/25 Range/Units 10:14 10:46 WBC 3.8 L (4.8-10.8) X10*3/uL RBC 4.82 (4.60-5.80) X10*6/uL Hgb 15.1 (14.0-18.0) g/dl Hct 43.8 (42.0-52.0) % MCV 90.9 (80.0-98.0) fL MCH 31.3 (27.0-33.0) pg MCHC 34.5 (31.0-36.0) g/dl RDW 11.7 (11.0-16.0) % Plt Count 198 (160-400) X10*3/uL MPV 10.5 (9.4-12.4) fL Immature Gran % (Auto) 0.3 (0.0-0.4) % Neut % (Auto) 56.2 (45-73) % Lymph % (Auto) 30.2 (20-40) % Campbell % (Auto) 9.0 (2-11) % Eos % (Auto) 3.2 (0-4) % Baso % (Auto) 1.1 (0-2) % Lymph # (Auto) 1.1 L (1.2-4.9) X10*3/uL Campbell # (Auto) 0.3 (0.1-1.2) X10*3/uL Eos # (Auto) 0.1 (0.0-0.4) X10*3/uL Baso # (Auto) 0.0 (0.0-0.2) X10*3/uL Abs Immat Gran (auto) 0.01 (0.00-0.03) X10*3/uL Absolute Neuts (auto) 2.1 (2.0-8.3) x10*3/uL Absolute Nucleated RBC 0.000 (0.0-0.012) X10*3/uL Nucleated RBC % (auto) 0.0 (0.0-0.2) /100WBC Sodium 144 (135-145) mmol/L Potassium 4.2 (3.3-5.1) mmol/L Chloride 108 (96-108) mmol/L Carbon Dioxide 26 (22-29) mmol/L Anion Gap 14 (12-20) BUN 12 (9-16) mg/dL Creatinine 0.79 (0.5-1.4) mg/dL Estim Creat Clear Calc 101.2 Estimated GFR > 60 Random Glucose 90 (60-115) mg/dL Calcium 9.6 D (8.4-10.2) mg/dL Total Bilirubin 0.8 (0.0-1.0) mg/dL AST 22 (5-37) U/L ALT 20 (0-40) U/L Alkaline Phosphatase 65 (39-117) U/L Total Protein 7.5 (6.5-8.0) g/dL Albumin 4.9 (3.5-5.0) g/dL Urine Color Yellow Urine Appearance Clear Urine pH 6.0 (5.0-9.0) Ur Specific [place] 1.025 (1.005-1.025) Urine Protein Trace (Neg-Trace) mg/dL Urine Glucose (UA) Negative (Negative) mg/dL Urine Ketones Trace (Negative) mg/dL Urine Blood Negative (Negative) Urine Nitrite Negative (Negative) Ur Leukocyte Esterase Negative (Negative) Tests considered The following testing was considered but not selected: I considered obtaining a CT scan of the abdomen/pelvis however, the patient's current clinical presentation and mechanism of injury does not warrant this. I discussed this with the patient who verbalized understanding and agreement. Discharge Plan Discharge Clinical Impression: Abdominal muscle strain Patient Disposition: Home, Self-Care Instructions: Muscle Strain (DC), Core Strengthening Exercises (ED) Additional Instructions: Your lab work today was reassuring that there is no acute emergent process for your symptoms. Follow up with your primary care provider and given this was a work place injury, work connection. Return to the emergency department immediately if your symptoms worsen or if you develop any numbness, tingling, dizziness, shortness of breath, difficulty breathing, chest pain, blurry vision, loss of vision, nausea, vomiting, abdominal pain, fever, chills, back pain, or any other complaints. Please see the information below about our Patient Portal. If you are not yet enrolled in the [facility] Patient Portal, you will receive an enrollment email invitation following your visit to any [facility] care setting. You may also self-enroll in the Patient Portal by visiting our website: [email or web address] The following information is required to access the Patient Portal: - Your [facility] Medical Record Number - Your personal home email address (must match what is in your electronic medical record, Registration staff can assist with this) - Name - Date of Capabilities of the Patient Portal: - Message some providers - View upcoming appointments - Access your health summary, medical history, and visit history - View current conditions and allergies - View procedure and lab results - View your medications, including guidelines, side effects, and precautions - Complete pre-appointment questionnaires requested by your provider - Ready summary reports of your office visits and procedures To access the Patient Portal Mobile Danielle, follow these directions: - Search [employer] in the Danielle Store or [employer] Store - Download the Danielle - Search for [facility] - Enter your login/password Prescriptions: No Action naproxen [Naprosyn] 500 mg tablet 500 mg PO BID Qty: 10 0RF levofloxacin 500 mg tablet 500 mg PO DAILY Qty: 9 0RF cephalexin 500 mg capsule 500 mg PO QID 5 Days Qty: 20 0RF cyclobenzaprine 5 mg tablet 5 mg PO TID PRN (Reason: muscle spasm) 7 Days Qty: 21 0RF prednisone 20 mg tablet 20 mg PO DAILY 7 Days Qty: 7 0RF ibuprofen 600 mg tablet 600 mg PO Q6H PRN (Reason: pain) Qty: 30 0RF methocarbamol 750 mg tablet 750 mg PO Q8H PRN (Reason: muscle spasm) 3 Days Qty: 9 0RF lidocaine [AsperFlex (lidocaine)] 4 % adhesive patch,medicated 1 patch topical DAILY PRN (Reason: pain) Qty: 30 0RF Referrals: [facility] Family Medicine [Provider Group] (Call to establish and follow up with a primary care provider. If you already have a primary care provider, please follow up with them.) [facility] Primary Care, Kelsy [Provider Group] (Call to establish and follow up with a primary care provider. If you already have a primary care provider, please follow up with them.) [facility] Primary Care, Za [Provider Group] (Call to establish and follow up with a primary care provider. If you already have a primary care provider, please follow up with them.) [facility] Primary Care, Samir [Provider Group] (Call to establish and follow up with a primary care provider. If you already have a primary care provider, please follow up with them.) [facility] Primary Care, Emerson Martinez [Provider Group] (Call to establish and follow up with a primary care provider. If you already have a primary care provider, please follow up with them.) [facility] [Provider Group] (Call to establish and follow up with work connection. ) Stand Alone Forms: Work/School Release Interventions: ED Discharge Assessment Last Done: 01/04/25 11:38 Discharge Date/Time: 01/04/25 11:39 Print Language: German
[2025-01-04 09:46] VITALS: BP 119/71; PULSE 56; RESP 18; TEMP 36.8; O2SAT 99; BMI 17.6
[2025-01-04 10:05] VITALS: BP 102/62; PULSE 59; RESP 16; TEMP 36.8; O2SAT 98
[2025-01-04 10:24] LABS: MANUAL DIFF FLAG NO
[2025-01-04 10:32] LABS: Basophils Percent Auto 1.1 % (0-2); Eosinophils Absolute Auto 0.1 X10*3/uL (0.0-0.4); Eosinophils Percent Auto 3.2 % (0-4); Hematocrit 43.8 % (42.0-52.0); Hemoglobin 15.1 g/dl (14.0-18.0); Imm Gran Abs Auto 0.01 X10*3/uL (0.00-0.03); Imm Gran Pct Auto 0.3 % (0.0-0.4); Lymphocytes Absolute Auto 1.1 X10*3/uL (1.2-4.9); Lymphocytes Percent Auto 30.2 % (20-40); Mean Corpuscular HGB Conc 34.5 g/dl (31.0-36.0); Mean Corpuscular Hemoglobin 31.3 pg (27.0-33.0); Mean Corpuscular Volume 90.9 fL (80.0-98.0); Mean Platelet Volume 10.5 fL (9.4-12.4); Monocytes Absolute Auto 0.3 X10*3/uL (0.1-1.2); Neutrophils Absolute Auto 2.1 x10*3/uL (2.0-8.3); Neutrophils Percent Auto 56.2 % (45-73); Platelet Count 198 X10*3/uL (160-400); Red Blood Count 4.82 X10*6/uL (4.60-5.80); Red Cell Distribution Width 11.7 % (11.0-16.0); White Blood Count 3.8 X10*3/uL (4.8-10.8)
--- OUTSIDE RECORDS SUMMARY | 2025-01-04 10:49 | XMS_ITS | Encounter Summary ---
Author Organization [facility] Address [address] [place] [address] Phone Care Team Providers Care Health/Safety Job Titles Name Role Phone ProviderMarcel MD Primary Care Provider [phone] Encounter Details Date Type Department Care Team (Late st Contact Info) Description 07/03/2010 Documentation [facility] [place] [address] [place] [address] Family Medicine, Physician [address], [place] [phone] Social History Tobacco Use Types Packs/Day Years [...] on filedocumented in this encounter Care Teams Health/Safety Job Titles Relationship Specialty Start Date End Date Provider, MD Marcel [address] [place] [address] PCP - General Pediatrics 02/04/24 documented as of this encounter
--- OUTSIDE RECORDS SUMMARY | 2025-01-04 10:49 | XMS_ITS | Encounter Summary ---
Author Organization [facility] Address [address] [place] [address] Phone Care Team Providers Care Board Certified Behavioral Analyst Name Role Phone ProviderMarcel MD Primary Care Provider [phone] Encounter Details Date Type Department Care Team (Late st Contact Info) Description 12/25/2009 Documentation [facility] [place] [address] [place] [address] Family Medicine, Physician [address], [place] [phone] Social History Tobacco Use Types Packs/Day Years [...] on filedocumented in this encounter Care Teams Board Certified Behavioral Analyst Relationship Specialty Start Date End Date Provider, MD Marcel [address] [place] [address] PCP - General Pediatrics 02/04/24 documented as of this encounter
--- OUTSIDE RECORDS SUMMARY | 2025-01-04 10:49 | XMS_ITS | Clinical Summary ---
Author Organization [facility] Address [address] [place] [address] Phone Care Team Providers Care Chief Ultrasound Technologist Name Role Phone Provider, Marcel VIZCAINO Primary Care Provider Allergies No known active allergies Medications mometasone [...] Encounters Date Type Department Care Team Description 12/22/2024 Telephone [facility] - [address] [address] Hernan Dhillon RN Discharge Follow-Up - ED 12/21/2024 10:09 AM EDT - 12/21/2024 11:58 AM EDT [facility] - Patient Ping 12/02/2024 10:10 AM EDT - 12/02/2024 11:17 AM EDT [facility] - Patient Ping 11/25/2024 6:18 AM EDT - 11/25/2024 8:24 AM EDT [facility] - Patient Ping 11/16/2024 7:24 AM EDT - 11/16/2024 9:23 AM EDT [facility] - Patient Ping 10/26/2024 9:07 PM EDT - 10/27/2024 1:03 AM EDT [facility] - Patient Ping 10/26/2024 2:10 PM EDT - 10/26/2024 4:35 PM EDT [facility] - Patient Ping 10/18/2024 Telephone [facility] - [address] [address] Rhonda Ordoñez LPN ER f/u 10/14/2024 8:08 AM EST - 10/14/2024 11:52 AM EST [facility] - Patient Ping from Last 3 [...] Completed 04/24/2021, 018 Procedures * Due to [place] [employer] law, this organization might not be sharing sensitive test results. Procedure Name Priority Date/Time Associated Diagnosis Comments CHLAMYDIA AND GONORRHEA, AMPLIFIED Routine 08/25/2023 11:23 AM EST Screening for chlamydial disease from Last 3 Months or Most Recently Relevant to Health Maintenance Results * Due to [place] [employer] law, this organization might not be sharing sensitive test results. * Chlamydia and Gonorrhoea, Amplified (08/25/2023 11:23 AM EST) Chlamydia Trachomatis, DNA Probe NEGATIVE (NEG) [facility] Comment: No Chlamydia Trachomatis RNA detected in this patient's sample ? (REFERENCE RANGE/NORMAL VALUE: NOT DETECTED) ? Note: This test uses stained glass glazier helper- mediated amplification method to detect rRNA from C. Trachomatis URINE GC AMP PROBE NEGATIVE (NEG) [facility] Comment: No Neisseria Gonorrhoeae RNA detected in this patient's sample ? (REFERENCE RANGE/NORMAL VALUE: NOT DETECTED) ? NOTE: This test uses stained glass glazier helper-mediated amplification method to detect rRNA from N.Gonorrhoeae. [...] without risk of sexual abuse. Consult the [facility] if needed. Contact phone number . Therapeutic failure or success cannot be determined with the Aptima Combo2 assay since nucleic acid may persist following appropriate antimicrobial therapy. The Centers for Disease Control and Prevention (CDC) recommends confirmatory retesting using culture or a different nucleic acid amplification test when positive results occur, if indicated. Testing performed or reported by [facility], a Service of [facility], [facility] Mariana Fern[address]dez [place] [address] Naeem Fernandez MD, Surfacing Technician [facility]# [id number] Urine (Urine) 08/25/2023 11: 23 AM EST 08/25/2023 8:25 PM EST Abad Varela MD LAB MICROBIOLOGY - GENERAL ORDER FAVIOLA Final Result [facility] from Last 3 Months or Most Recently Relevant to Health Maintenance Insurance [facility] [id number] [facility] [place] [address] Care Teams Chief Ultrasound Technologist Relationship Specialty Start Date End Date Provider, MD Marcel [address] [place] [id number] PCP - General Pediatrics 02/04/24
--- OUTSIDE RECORDS SUMMARY | 2025-01-04 10:49 | XMS_ITS | Encounter Summary ---
Author Organization [facility] Address [address] [place] [address] Phone Care Team Providers Care Powder Room Attendant Name Role Phone ProviderMarcel MD Primary Care Provider [phone] Encounter Details Date Type Department Care Team (Late st Contact Info) Description 09/20/2014 Documentation [facility] [place] [facility] [address] [place] [address] Family Medicine, Physician [address] [place] [address] Social History Tobacco Use Types Packs/Day Years [...] on filedocumented in this encounter Care Teams Powder Room Attendant Relationship Specialty Start Date End Date Provider, MD Marcel [address] [place] [address] PCP - General Pediatrics 02/04/24 documented as of this encounter
--- OUTSIDE RECORDS SUMMARY | 2025-01-04 10:50 | XMS_ITS | Encounter Summary ---
Author Organization [facility] Address [address] [place] [address] Phone Care Team Providers Care Casket Assembler Name Role Phone ProviderMarcel MD Primary Care Provider [phone] Encounter Details Date Type Department Care Team (Late st Contact Info) Description 01/09/2016 Documentation [facility] [place] Family Medicine [address] [place] [address] Family Medicine, Physician [address], [place] [address] Social History Tobacco Use Types Packs/Day Years [...] on filedocumented in this encounter Care Teams Casket Assembler Relationship Specialty Start Date End Date Provider, MD Marcel [address] [place] [address] PCP - General Pediatrics 02/04/24 documented as of this encounter
--- OUTSIDE RECORDS SUMMARY | 2025-01-04 10:50 | XMS_ITS | Encounter Summary ---
Author Organization [facility] Address [address] [place] [address] Phone Care Team Providers Care Remarketing Manager Name Role Phone ProviderMarcel MD Primary Care Provider [phone] Encounter Details Date Type Department Care Team (Late st Contact Info) Description 01/08/2016 Documentation [facility] [place] Family Medicine [address] [place] [address] Family Medicine, Physician [address], [place] [address] Social History Tobacco Use Types Packs/Day Years [...] on filedocumented in this encounter Care Teams Remarketing Manager Relationship Specialty Start Date End Date Provider, MD Marcel [address] [place] [address] PCP - General Pediatrics 02/04/24 documented as of this encounter
--- OUTSIDE RECORDS SUMMARY | 2025-01-04 10:50 | XMS_ITS | Encounter Summary ---
Author Organization [facility] Address [address] [place] [address] Phone Care Team Providers Care Medical Insurance Collector Name Role Phone ProviderMarcel MD Primary Care Provider [phone] Encounter Details Date Type Department Care Team (Late st Contact Info) Description 01/08/2016 Documentation [facility] [place] Family Medicine [address] [place] [address] Family Medicine, Physician [address], [place] [address] Social History Tobacco Use Types Packs/Day Years [...] on filedocumented in this encounter Care Teams Medical Insurance Collector Relationship Specialty Start Date End Date Provider, MD Marcel [address] [place] [address] PCP - General Pediatrics 02/04/24 documented as of this encounter
--- OUTSIDE RECORDS SUMMARY | 2025-01-04 10:50 | XMS_ITS | Encounter Summary ---
Author Organization [facility] Address [address] [place] [address] Phone Care Team Providers Care Actuarial Consultant Name Role Phone Provider, Marcel VIZCAINO Primary Care Provider [phone] Encounter Details Date Type Department Care Team (Late st Contact Info) Description 04/01/2017 Conversion Encounter [facility] [place] [address] [place], [place] [id number] Social History Tobacco Use Types Packs/Day Years [...] on filedocumented in this encounter Care Teams Actuarial Consultant Relationship Specialty Start Date End Date Provider, MD Marcel [address] [place] [address] PCP - General Pediatrics 02/04/24 documented as of this encounter
[2025-01-04 10:57] LABS: Appearance Urine Clear; Color Urine Yellow; Glucose Urine UA Negative (Negative); Leukocyte Esterase Urine Negative (Negative); Nitrite Urine Negative (Negative); Specific Gravity - Urine 1.025 (1.005-1.025); Urine Blood Negative (Negative); Urine Ketones Trace mg/dL (Negative); Urine Protein Trace mg/dL (Neg-Trace)
[2025-01-04 10:58] LABS: Alanine Aminotransferase 20 U/L (0-40); Albumin Level 4.9 g/dL (3.5-5.0); Alkaline Phosphatase 65 U/L (39-117); Anion Gap 14 (12-20); Aspartate Amino Transferase 22 U/L (5-37); Bilirubin Total 0.8 mg/dL (0.0-1.0); Blood Urea Nitrogen 12 mg/dL (9-16); Calcium 9.6 mg/dL (8.4-10.2); Carbon Dioxide 26 mmol/L (22-29); Chloride 108 mmol/L (96-108); Creatinine Clr Calc Pharmacy 101.2; Estimated Glomerular Filt Rate > 60; Glucose Random 90 mg/dL (60-115); Potassium 4.2 mmol/L (3.3-5.1); Sodium 144 mmol/L (135-145); Total Protein 7.5 g/dL (6.5-8.0)
[2025-01-04 11:38] VITALS: BP 102/62; PULSE 59; RESP 16; TEMP 36.8; O2SAT 98
== END 2025-01-04 11:39 | disposition home or self-care (01) ==
PROVIDERS: Registered Nurse Emergency; Emergency Provider Emergency Medicine
DX: S39.011A Strain of muscle, fascia and tendon of abdomen, initial encounter (principal); X50.0XXA Overexertion from strenuous movement or load, initial encounter; R10.32 Left lower quadrant pain; F12.90 Cannabis use, unspecified, uncomplicated; Y93.89 Activity, other specified; Y92.59 Other trade areas as the place of occurrence of the external cause; Y99.0 Civilian activity done for income or pay
CPT/HCPCS: 36415; 80053; 81003; 85025; 99283; 99284

== ENCOUNTER 2025-02-03 13:11 | Emergency (ER) | payer OTHER, SELFPAY ==
[2025-02-03 13:14] VITALS: BP 126/75; PULSE 73; RESP 18; TEMP 36.8; O2SAT 98; BMI 17.8
--- NOTE | 2025-02-03 13:14 | ED_ITS ---
HPI - Abdominal Pain General Chief Complaint: Abdominal Pain Stated Complaint: abd pain vomiting Time Seen by Provider: 02/03/25 13:19 Source: patient Mode of arrival: ambulatory Limitations: no limitations History of Present Illness ED Provider: HPI narrative: 19-year-old states last night he had a potato, woke up and was having pain in the lower abdomen, had some nausea, nonbilious vomiting, no diarrhea, went to work at work was still having discomfort, left work came that went home took a Tylenol, ate felt better presented to emergency department, needs a work note. Currently has no symptoms no dysuria no hematuria no testicular pain. No fevers or chills. Related Data Previous Rx's ?Medication ?Instructions ?Recorded levofloxacin 500 mg tablet 500 mg PO DAILY #9 tabs naproxen 500 mg tablet (Naprosyn) 500 mg PO BID #10 ta bs 11/10/21 ibuprofen 600 mg tablet 600 mg PO Q6H PRN pain #30 t abs 05/11/24 lidocaine 4 % topical patch 1 patch topical DAILY PRN pain #30 05/11/24 (AsperFlex (lidocaine)) ea methocarbamol 750 mg tablet 750 mg PO Q8H PRN muscle s pasm 3 05/11/24 days #9 tabs cephalexin 500 mg capsule 500 mg PO QID 5 days #20 cap s 08/10/24 cyclobenzaprine 5 mg tablet 5 mg PO TID PRN muscle spa sm 7 12/21/24 days #21 tabs prednisone 20 mg tablet 20 mg PO DAILY 7 days #7 tab s 12/21/24 Allergies Allergy/AdvReac Type Severity Reaction Status Date / Time No Known Allergies Allergy Verified 02/03/25 13:16 Review of Systems Constitutional: Reports as per [facility] Past Medical History Medical History ADHD Social History Social History Alcohol intake: never Smoked in Last 30 Days: No Use of substances other than those prescribed or required for medical reasons: Yes Substance Use Type: Marijuana Advance Directives: No Advance Directives Information Provided: No Do you have a plan to hurt others: No Plan Physical Exam ED Vital Signs: Vital Signs - 24 hr 02/03/25 13:14 02/03/25 13:19 Temperature 98.2 F 97.4 F Pulse Rate 73 62 Respiratory Rate 18 14 Blood Pressure 126/75 112/54 L Pulse Oximetry 98 97 Oxygen Delivery Method Room Air Room Air BMI result Body Mass Index 17.8 Const Other: * Gen: ?Overall well-appearing patient * HEENT: PERRLA, EOMI, MMM, * Neck: Supple, no LAD * CV: RRR, no obvious murmurs appreciated * Resp: ?No wheezing rales rhonchi no stridor moving air well * Abd: ?Bowel sounds are present, no tenderness no rebound no rigidity * MSK: FROM, strength 5/5 all extremities * Skin: Warm, dry, intact, * Neuro: ?Alert and oriented x3, moving upper and lower extremities symmetrically, no obvious facial asymmetry noted Course Course Course Narrative: This is an RME: Additional HPI, ROS, PE not included below will be deferred to primary provider. RME assessment and note performed by: Stefanie Jose PA-C This is a 4-qxjv-hbp-male, with a PMHx of ADHD, who presents to the ER with a complaint of abdominal pain since this morning. He states that last night he had a baked potato. Woke up with abdominal pain and had episode of vomiting, reporting nausea. No known sick contacts. No urinary sxs. Abd is soft, with mild tenderness in the right and left abdomen. No constipation or diarrhea. Plan: Labs, UA, further ER eval needed Medical Decision Making Medical Decision Making MDM Narrative: Overall benign abdominal exam, consideration for workup as below, abdominal exam without any tenderness in the right upper quadrant or lower quadrants to suspect biliary pancreatic etiology or appendicitis, did not feel either ultrasound or CAT scan is indicated, he is otherwise symptomatically better, no obstructive patterns we will discharge Differential Diagnosis Differential Diagnoses: The differential diagnosis associated with the presentation includes Cholecystitis, pancreatitis, hepatitis, gastritis, cholangitis, choledocholithiasis, appendicitis, diverticulitis, hernia Lab Data 02/03/25 13:34 02/03/25 13:34 Labs: Lab Results 02/03/25 02/03/25 Range/Units 13:34 13:52 WBC 3.6 L (4.8-10.8) X10*3/uL RBC 4.55 L (4.60-5.80) X10*6/uL Hgb 14.2 (14.0-18.0) g/dl Hct 39.3 L (42.0-52.0) % MCV 86.4 (80.0-98.0) fL MCH 31.2 (27.0-33.0) pg MCHC 36.1 H (31.0-36.0) g/dl RDW 11.9 (11.0-16.0) % Plt Count 191 (160-400) X10*3/uL MPV 10.1 (9.4-12.4) fL Immature Gran % (Auto) 0.0 (0.0-0.4) % Neut % (Auto) 56.4 (45-73) % Lymph % (Auto) 31.9 (20-40) % [place] % (Auto) 9.2 (2-11) % Eos % (Auto) 1.7 (0-4) % Baso % (Auto) 0.8 (0-2) % Lymph # (Auto) 1.1 L (1.2-4.9) X10*3/uL [place] # (Auto) 0.3 (0.1-1.2) X10*3/uL Eos # (Auto) 0.1 (0.0-0.4) X10*3/uL Baso # (Auto) 0.0 (0.0-0.2) X10*3/uL Abs Immat Gran (auto) 0.00 (0.00-0.03) X10*3/uL Absolute Neuts (auto) 2.0 (2.0-8.3) x10*3/uL Absolute Nucleated RBC 0.000 (0.0-0.012) X10*3/uL Nucleated RBC % (auto) 0.0 (0.0-0.2) /100WBC Sodium 145 (135-145) mmol/L Potassium 3.8 (3.3-5.1) mmol/L Chloride 110 H (96-108) mmol/L Carbon Dioxide 25 (22-29) mmol/L Anion Gap 14 (12-20) BUN 15 (9-16) mg/dL Creatinine 0.75 (0.5-1.4) mg/dL Estim Creat Clear Calc 107.5 Estimated GFR > 60 Random Glucose 103 (60-115) mg/dL Calcium 9.7 (8.4-10.2) mg/dL Magnesium 2.0 (1.6-2.6) mg/dL Total Bilirubin 1.1 H (0.0-1.0) mg/dL Direct Bilirubin 0.4 (0.0-0.5) mg/dL AST 22 (5-37) U/L ALT 20 (0-40) U/L Alkaline Phosphatase 62 (39-117) U/L Total Protein 7.4 (6.5-8.0) g/dL Albumin 5.0 (3.5-5.0) g/dL Lipase 13 (8-78) U/L Urine Color Yellow Urine Appearance Cloudy Urine pH 8.5 (5.0-9.0) Ur Specific [place] 1.020 (1.005-1.025) Urine Protein Negative (Neg-Trace) mg/dL Urine Glucose (UA) Negative (Negative) mg/dL Urine Ketones Negative (Negative) mg/dL Urine Blood Negative (Negative) Urine Nitrite Negative (Negative) Ur Leukocyte Esterase Trace H (Negative) Urine RBC 0-2 (0-2) /HPF Urine WBC 0-5 (0-5) /HPF Ur Squamous Epith Cells 0-2 (0-2) /HPF Urine Bacteria None Seen (None Seen) Hyaline Casts 0-2 (0-2) /LPF Discharge Plan Discharge Clinical Impression: Abdominal pain Patient Disposition: Home, Self-Care Instructions: Abdominal Pain (ED) Additional Instructions: Evaluated with abdominal pain, physical examination at this time is reassuring, blood work unremarkable, anything else worse come back to the ER Otherwise follow up with your primary care provider Prescriptions: No Action naproxen [Naprosyn] 500 mg tablet 500 mg PO BID Qty: 10 0RF levofloxacin 500 mg tablet 500 mg PO DAILY Qty: 9 0RF cephalexin 500 mg capsule 500 mg PO QID 5 Days Qty: 20 0RF cyclobenzaprine 5 mg tablet 5 mg PO TID PRN (Reason: muscle spasm) 7 Days Qty: 21 0RF prednisone 20 mg tablet 20 mg PO DAILY 7 Days Qty: 7 0RF ibuprofen 600 mg tablet 600 mg PO Q6H PRN (Reason: pain) Qty: 30 0RF methocarbamol 750 mg tablet 750 mg PO Q8H PRN (Reason: muscle spasm) 3 Days Qty: 9 0RF lidocaine [AsperFlex (lidocaine)] 4 % adhesive patch,medicated 1 patch topical DAILY PRN (Reason: pain) Qty: 30 0RF Stand Alone Forms: Work/School Release Print Language: Swedish
[2025-02-03 13:19] VITALS: BP 112/54; PULSE 62; RESP 14; TEMP 36.3; O2SAT 97
--- NOTE | 2025-02-03 13:23 | PC.NURSE ---
Patient A&O x 3. Patient presents to ED c/o lower abdomen pain rated 5/10 non radiating which started this morning. Patient said he ate a baked potato for dinner last night. Patient c/o nausea and non bloody vomit. +bowel sounds abdomen soft non distended. Denies injuries and previous surgeries. VSS and up to date.
[2025-02-03 13:42] LABS: MANUAL DIFF FLAG NO
[2025-02-03 13:43] LABS: Basophils Percent Auto 0.8 % (0-2); Eosinophils Absolute Auto 0.1 X10*3/uL (0.0-0.4); Eosinophils Percent Auto 1.7 % (0-4); Hematocrit 39.3 % (42.0-52.0); Hemoglobin 14.2 g/dl (14.0-18.0); Lymphocytes Absolute Auto 1.1 X10*3/uL (1.2-4.9); Lymphocytes Percent Auto 31.9 % (20-40); Mean Corpuscular HGB Conc 36.1 g/dl (31.0-36.0); Mean Corpuscular Hemoglobin 31.2 pg (27.0-33.0); Mean Corpuscular Volume 86.4 fL (80.0-98.0); Mean Platelet Volume 10.1 fL (9.4-12.4); Monocytes Absolute Auto 0.3 X10*3/uL (0.1-1.2); Monocytes Percent Auto 9.2 % (2-11); Neutrophils Percent Auto 56.4 % (45-73); Platelet Count 191 X10*3/uL (160-400); Red Blood Count 4.55 X10*6/uL (4.60-5.80); Red Cell Distribution Width 11.9 % (11.0-16.0); White Blood Count 3.6 X10*3/uL (4.8-10.8)
[2025-02-03 13:59] LABS: Alanine Aminotransferase 20 U/L (0-40); Alkaline Phosphatase 62 U/L (39-117); Anion Gap 14 (12-20); Aspartate Amino Transferase 22 U/L (5-37); Bilirubin Direct 0.4 mg/dL (0.0-0.5); Bilirubin Total 1.1 mg/dL (0.0-1.0); Blood Urea Nitrogen 15 mg/dL (9-16); Calcium 9.7 mg/dL (8.4-10.2); Carbon Dioxide 25 mmol/L (22-29); Chloride 110 mmol/L (96-108); Creatinine Clr Calc Pharmacy 107.5; Estimated Glomerular Filt Rate > 60; Glucose Random 103 mg/dL (60-115); Lipase 13 U/L (8-78); Potassium 3.8 mmol/L (3.3-5.1); Sodium 145 mmol/L (135-145); Total Protein 7.4 g/dL (6.5-8.0)
[2025-02-03 14:04] LABS: Appearance Urine Cloudy; Color Urine Yellow; Glucose Urine UA Negative (Negative); Leukocyte Esterase Urine Trace (Negative); Nitrite Urine Negative (Negative); PH 8.5 (5.0-9.0); UMIC TRIGGER UACC YES; Urine Blood Negative (Negative); Urine Ketones Negative (Negative); Urine Protein Negative (Neg-Trace)
[2025-02-03 14:06] LABS: Bacteria Urine None Seen (None Seen); Hyaline Casts Urine 0-2 /LPF (0-2); RBC Urine 0-2 /HPF (0-2); Squamous Epithelial Cell Urine 0-2 /HPF (0-2); WBC Urine 0-5 /HPF (0-5)
[2025-02-03 14:42] VITALS: BP 110/44; PULSE 57; RESP 15; TEMP 36.2; O2SAT 100
== END 2025-02-03 14:43 | disposition home or self-care (01) ==
PROVIDERS: Physician Assistant Medical; Emergency Provider Emergency Medicine
DX: R10.30 Lower abdominal pain, unspecified (principal); R11.2 Nausea with vomiting, unspecified
CPT/HCPCS: 36415; 80048; 80076; 81001; 81003; 83690; 83735; 85025; 99283; 99284

== ENCOUNTER → 2025-02-28 14:25 | Outpatient (BNV) | payer OTHER, SELFPAY | PROVIDERS: Visit Provider Radiology Diagnostic Radiology | DX: M47.895 Other spondylosis, thoracolumbar region (principal) | CPT/HCPCS: 72100 ==

== ENCOUNTER 2025-02-28 14:50 | Emergency (ER) | payer OTHER, SELFPAY ==
--- NOTE | ~2025-02-28 | XR_ITS ---
EXAMINATION: XR LUMBOSACRAL SPINE CLINICAL INFORMATION: pain/reduced ROM COMPARISON: None available. TECHNIQUE: AP and lateral views. FINDINGS: No acute cortical disruption or malalignment. No lytic or blastic lesions. Mild endplate sclerosis and the lower thoracic spine and upper lumbar spine. XR/XR lumbar spine 2-3V IMPRESSION: Mild multilevel thoracolumbar spondylosis without acute fracture or trauma-related listhesis. Electronically signed by: Nish Neal MD 02/28/2025 03:29 PM EDT
[2025-02-28 15:09] VITALS: BP 115/61; PULSE 66; RESP 16; TEMP 36.3; O2SAT 99; BMI 17.0
--- NOTE | 2025-02-28 17:50 | ED_ITS ---
HPI - Back Pain/Injury General Chief Complaint: Back Pain/Injury Stated Complaint: back pain Time Seen by Provider: 02/28/25 17:49 Source: patient Mode of arrival: ambulatory Limitations: no limitations History of Present Illness ED Provider: MARIELOS MCDUFFIE PA-C HPI Narrative: 19 year old male with no significant pmx presents to the ED today for evaluation of lower back pain x1 week. Reports taking Tylenol at home which improves his pain temporarily. The pain is localized to his lower back. Admits to difficulty sleeping due to the pain. 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 Denies blunt injury/trauma/falls. No hx IVDU. No hx spinal surgery. Denies fever, chills, neck pain, bowel or bladder incontinence or retention, numbness/tingling/weakness in the lower extremities, dysuria, hematuria, saddle anesthesia. Related Data Previous Rx's ?Medication ?Instructions ?Recorded levofloxacin 500 mg tablet 500 mg PO DAILY #9 tabs naproxen 500 mg tablet (Naprosyn) 500 mg PO BID #10 ta bs 11/10/21 ibuprofen 600 mg tablet 600 mg PO Q6H PRN pain #30 t abs 05/11/24 lidocaine 4 % topical patch 1 patch topical DAILY PRN pain #30 05/11/24 (AsperFlex (lidocaine)) ea methocarbamol 750 mg tablet 750 mg PO Q8H PRN muscle s pasm 3 05/11/24 days #9 tabs cephalexin 500 mg capsule 500 mg PO QID 5 days #20 cap s 08/10/24 cyclobenzaprine 5 mg tablet 5 mg PO TID PRN muscle spa sm 7 12/21/24 days #21 tabs prednisone 20 mg tablet 20 mg PO DAILY 7 days #7 tab s 12/21/24 cyclobenzaprine 5 mg tablet 5 mg PO Q8H 3 days #9 tabs 02/28/25 lidocaine 5 % topical patch 1 patch topical DAILY #15 ea 02/28/25 (Lidoderm) Allergies Allergy/AdvReac Type Severity Reaction Status Date / Time No Known Allergies Allergy Verified 02/28/25 15:12 Review of Systems Review of Systems: Constitutional: No fever, chills, fatigue, night sweats, weight changes ENT/Mouth: No ear pain, hearing loss, nasal congestion, sinus pain, rhinorrhea, sore throat Eyes: No eye pain, swelling, redness, vision changes, discharge Cardio: No chest pain, palpitations, MORALES, orthopnea, peripheral edema Pulm: No SOB, cough, sputum, wheezing, dyspnea, hemoptysis GI: No nausea, vomiting, hematemesis, abdominal pain, diarrhea, constipation, hematochezia, melena : No irregular bleeding, dysuria, frequency, urgency, hesitancy, hematuria, flank pain, urinary flow changes, urinary incontinence or retention MSK: +back pain, No neck pain, joint pain, myalgias Skin: No lesions, rashes Neuro: No weakness, numbness, paresthesias, LOC, dizziness, headache All other systems reviewed and are negative. [facility] Past Medical History Attestation statement: The following information was validated with the patient. Source: old records reviewed and nursing notes reviewed Medical History ADHD Social History Social History Alcohol intake: never Substance Use Type: Marijuana Do you have a plan to hurt others: No Plan Physical Exam Vital Signs: Vital Signs: Last Vital Signs Temp 97.3 F 02/28/25 15:09 Pulse 66 02/28/25 15:09 Resp 16 02/28/25 15:09 BP 115/61 02/28/25 15:09 Pulse Ox 99 02/28/25 15:09 O2 Del Method Room Air 02/28/25 15:09 BMI result Body Mass Index 17.0 Vital signs stable, afebrile Const: General: cooperative, healthy appearing, comfortable, no acute distress, alert, awake and Physically active Orientation/consciousness: patient oriented x3 HEENT: Head: Yes normal to inspection, Yes normocephalic and Yes atraumatic Eyes: General: appearance normal, both eyes and all related structures Pupils: Equal, round and reactive pupils present EOM: EOMs intact bilaterally Neck: Other: + no cervical midline spinous tenderness or step-off deformity. Neck: Yes normal visual inspection, Yes full ROM and Yes no meningeal signs Resp: Effort & Inspection: normal respiratory effort Auscultation: clear to auscultation bilaterally Cardio: Rate: regular rate Rhythm: regular rhythm GI: Inspection: Yes normal to inspection Palpation (GI): Soft to palpation and nontender : General: Yes no CVA tenderness Back/Spine/Pelvis: Other: No midline spinous tenderness or step-off deformity. There is bilateral paraspinal muscle tenderness to palpation without overlying skin changes. No palpable fluctuance, crepitus. Back: no CVA tenderness Neuro: Other: Strength 5/5 intact throughout.? No saddle anesthesia.? Sensation intact to light touch.? Neurovascular intact distally.? General: patient oriented x3, gait normal and no meningeal signs Cranial nerves: Yes Equal, round and reactive pupils present Gait exam (Neuro): Normal gait present Course Course Course Narrative: X-rays unremarkable. Likely lumbar strain. No back pain red flags. Flexeril and lidocaine patches sent to pharmacy. Patient has remained stable throughout ED visit today. Discussed worrisome signs and symptoms and when to return to the ED. All questions answered at this time. Patient is agreeable with disposition and stable for discharge. Medical Decision Making Medical Decision Making MDM Narrative: 19 year old male with no significant pmx presents to the ED today for evaluation of lower back pain x1 week. Vital signs stable. Afebrile. He is well-appearing and in no acute distress. No midline spinous tenderness or step-off deformity. There is bilateral lumbar paraspinal muscle tenderness to palpation. No focal neuro deficits. ambulating w/ steady gait. Concern for MSK sprain/strain, fracture, subluxation, disc herniation, sciatica. Unlikely cord compression, cauda equina, Guillain-[place], epidural abscess. Plan for imaging and disposition. Differential Diagnosis Differential Diagnoses: The differential diagnosis associated with the presentation includes as above Admission/Observation Not indicated. Independent Interpretation I performed an independent interpretation of an: Plain X-Ray Interpretation: X-ray lumbar spine without fracture Radiology Impression Discussion of test interpretation with radiology: I have reviewed the radiologist's reading. Radiologist Impression: EXAMINATION: XR LUMBOSACRAL SPINE CLINICAL INFORMATION: pain/reduced ROM COMPARISON: None available. TECHNIQUE: AP and lateral views. FINDINGS: No acute cortical disruption or malalignment. No lytic or blastic lesions. Mild endplate sclerosis and the lower thoracic spine and upper lumbar spine. XR/XR lumbar spine 2-3V IMPRESSION: Mild multilevel thoracolumbar spondylosis without acute fracture or trauma-related listhesis. Electronically signed by: Nish Neal MD 02/28/2025 03:29 PM EDT RP Prescription Management I considered prescription management with: Pain Medication and Other (Flexeril) Social Determinants Patient?s care significantly limited by Social Determinants of Health including: Other Social Determinant of Health Critical Care Time Critical Care Time Critical Care Time: No Discharge Plan Discharge Clinical Impression: Strain of lumbar paraspinal muscle Patient Disposition: Home, Self-Care Instructions: Lower Back Exercises (ED) Additional Instructions: You were evaluated in the Emergency Department today for your back pain.? Your evaluation did not show signs of medical conditions requiring emergent intervention at this time. Avoid bending, lifting, or twisting. Use ice several times per day for 20 minutes at a time for the next 48 hours and then change to heat. I recommend you take 600mg ibuprofen every 6 hours or tylenol 650mg every 6 hours as needed for pain. If needed, you can alternate these medications so that you take one medication every 3 hours. For example, at noon take ibuprofen, then at 3pm take tylenol, then at 6pm take ibuprofen. Flexeril is a muscle relaxer. Take this at night as it makes you drowsy. Do not drive, drink alcohol, or operate machinery while taking it. Lidoderm patches are numbing patches. Apply to painful areas. Please schedule an appointment for follow-up with your primary care provider this week for further evaluation of your symptoms. Return to the Emergency Department if you experience worsening back pain, difficulty walking, fevers, numbness, tingling, incontinence, or any other concerning symptoms. In the case of an emergency call 911. Prescriptions: New cyclobenzaprine 5 mg tablet 5 mg PO Q8H 3 Days Qty: 9 0RF lidocaine [Lidoderm] 5 % adhesive patch,medicated 1 patch topical DAILY Qty: 15 0RF Rx Instructions: leave on most painful area for up to 12 hrs No Action naproxen [Naprosyn] 500 mg tablet 500 mg PO BID Qty: 10 0RF levofloxacin 500 mg tablet 500 mg PO DAILY Qty: 9 0RF cephalexin 500 mg capsule 500 mg PO QID 5 Days Qty: 20 0RF cyclobenzaprine 5 mg tablet 5 mg PO TID PRN (Reason: muscle spasm) 7 Days Qty: 21 0RF prednisone 20 mg tablet 20 mg PO DAILY 7 Days Qty: 7 0RF ibuprofen 600 mg tablet 600 mg PO Q6H PRN (Reason: pain) Qty: 30 0RF methocarbamol 750 mg tablet 750 mg PO Q8H PRN (Reason: muscle spasm) 3 Days Qty: 9 0RF lidocaine [AsperFlex (lidocaine)] 4 % adhesive patch,medicated 1 patch topical DAILY PRN (Reason: pain) Qty: 30 0RF Referrals: Physician,None [Primary Care Provider, Medical] Stand Alone Forms: Work/School Release Print Language: Georgian
[2025-02-28 18:08] VITALS: BP 115/61; PULSE 66; RESP 16; TEMP 36.3; O2SAT 99
== END 2025-02-28 18:09 | disposition home or self-care (01) ==
PROVIDERS: Emergency Provider Emergency Medicine Emergency Medical Services
DX: M54.50 Low back pain, unspecified (principal)
CPT/HCPCS: 72100; 99282; 99283

== ENCOUNTER 2025-03-08 11:06 | Emergency (ER) | payer OTHER, SELFPAY ==
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
[2025-03-08 11:11] VITALS: BP 110/70; PULSE 57; RESP 16; TEMP 36.3; O2SAT 97; BMI 17.5
[2025-03-08 12:06] VITALS: BP 110/70; PULSE 57; RESP 16; TEMP 36.3; O2SAT 97
== END 2025-03-08 12:14 | disposition home or self-care (01) ==
PROVIDERS: Emergency Provider Emergency Medicine
DX: S39.012A Strain of muscle, fascia and tendon of lower back, initial encounter (principal); V43.02XA Car driver injured in collision with other type car in nontraffic accident, initial encounter; Y92.481 Parking lot as the place of occurrence of the external cause; Y93.89 Activity, other specified; Y99.8 Other external cause status
CPT/HCPCS: 72072; 72100; 99283

== ENCOUNTER → 2025-03-08 11:17 | Outpatient (BNV) | payer OTHER, SELFPAY | PROVIDERS: Emergency Provider Emergency Medicine; Visit Provider Radiology Diagnostic Radiology | DX: M54.9 Dorsalgia, unspecified (principal); M54.50 Low back pain, unspecified | CPT/HCPCS: 72072; 72100 ==